=== PATIENT | male | born 1960 | race Caucasian/White ===

== ENCOUNTER 2017-11-10 09:56 | Emergency (ER) | payer OTHER, MEDICARE, MEDICAID ==
[~2017-11-10] VITALS: Ht 170.2 cm; Wt 81.8 kg
[~2017-11-10 09:56] MED LIST: ATIVAN1 MG PO; CARAFATE1 GM PO; DICYCLOMINE10 MG PO; EXALGO16 MG PO; GNP VIT D PO; OXYCODONE HCL30 MG PO; PREVNAR 13 IM; SUSTIVA600 MG PO; SYNTHROID88 MCG PO; TRAZODONE HCL100 MG PO; TRUVADA PO; WARFARIN SODIUM4 MG PO; ZOFRAN ODT4 MG PO; ZOLPIDEM10 M1 PO
[2017-11-10] MEDS ORDERED: XARELTO20 MG PO (10:30)
[2017-11-10 11:43] VITALS: BP 125/87
== END 2017-11-10 12:08 | disposition home or self-care (01) | DRG 563 ==
LOC: ED 09:56
DX: S39.012A Strain of muscle, fascia and tendon of lower back, initial encounter (principal); M19.90 Unspecified osteoarthritis, unspecified site; I10 Essential (primary) hypertension; F41.9 Anxiety disorder, unspecified; V43.52XA Car driver injured in collision with other type car in traffic accident, initial encounter

== ENCOUNTER 2017-12-09 08:26 | Emergency (ER) | payer MEDICARE, MEDICAID ==
[~2017-12-09] VITALS: Ht 172.7 cm; Wt 80.0 kg
[~2017-12-09 08:26] MED LIST changes: +OXYCOD-APAP1 TA1 PO; +XARELTO20 MG PO
[2017-12-09 08:56] LABS: HEMATOCRIT 39.4 % (39.0-50.0); IMMATURE GRANULOCYTES 0.5 % (0.0-5.0); MEAN CELL VOLUME 102.6 fL CALC (80.0-100.0); MEAN CORPUSCULAR HGB 34.1 pG CALC (26.0-32.0); MEAN CORPUSCULAR HGB CONC 33.2 g/L CALC (32.0-36.0); NEUT# 6.09 thou/uL (1.82-7.42); RED BLOOD COUNT 3.84 mill/uL (4.70-6.10); RED CELL DISTRI WIDTH 16.7 % (11.5-15.5)
[2017-12-09 08:59] LABS: HEMOGLOBIN 13.1 g/dl (14.0-18.0)
[2017-12-09 09:19] LABS: ANION GAP 14 (6-22 (CALC)); BUN 10 mg/dL (9-20); BUN/CREATININE RATIO 9 (12-20 (CALC)); CARBON DIOXIDE 24 mmol/l (22-30); CHLORIDE 103 mmol/l (95-108); CREATININE 1.1 mg/dL (0.7-1.3); GFR > 60 ML/MIN (>=60 (CALC)); GFR FOR AFR.AMER. > 60 ML/MIN (>=60 (CALC)); POTASSIUM 3.9 mmol/l (3.5-5.1); SODIUM 137 mmol/l (137-146)
[2017-12-09 12:38] VITALS: BP 125/77
== END 2017-12-09 12:46 | disposition home or self-care (01) ==
LOC: ED 08:26
PROVIDERS: Family Medicine
DX: R09.89 Other specified symptoms and signs involving the circulatory and respiratory systems (principal); M19.90 Unspecified osteoarthritis, unspecified site; I10 Essential (primary) hypertension; F41.9 Anxiety disorder, unspecified; G62.9 Polyneuropathy, unspecified; F17.200 Nicotine dependence, unspecified, uncomplicated; Z21 Asymptomatic human immunodeficiency virus [HIV] infection status; Z79.84 Long term (current) use of oral hypoglycemic drugs; Z86.718 Personal history of other venous thrombosis and embolism
CPT/HCPCS: J1610; Q9967

== ENCOUNTER 2018-01-20 14:37 | Inpatient (IN) | payer MEDICARE, MEDICAID ==
[~2018-01-20] VITALS: Ht 172.7 cm; Wt 77.0 kg
[~2018-01-20 14:37] MED LIST changes: +CLONAZEPAM1 MG PO; +CYMBALTA30 MG PO; +LEVOTHYROXIN50 MCG PO; +PROAIR HFA IN; +TIVICAY50 MG PO
[2018-01-24] VITALS (8 sets, daily range): BP systolic 102–146; BP diastolic 63–81
[2018-01-25 00:18] VITALS: BP 95/59
[2018-01-25 04:55] VITALS: BP 127/85
[2018-01-25 06:11] LABS: IMMATURE GRANULOCYTES 0.2 % (0.0-5.0); MEAN CELL VOLUME 105.6 fL CALC (80.0-100.0); MEAN CORPUSCULAR HGB 33.4 pG CALC (26.0-32.0); MEAN CORPUSCULAR HGB CONC 31.7 g/L CALC (32.0-36.0); NEUT# 5.62 thou/uL (1.82-7.42); RED BLOOD COUNT 3.02 mill/uL (4.70-6.10)
[2018-01-25 06:12] LABS: HEMATOCRIT 31.9 % (39.0-50.0); HEMOGLOBIN 10.1 g/dl (14.0-18.0)
[2018-01-25 06:33] LABS: BILIRUBIN, TOTAL 0.6 mg/dL (0.0-1.4); CREATININE 1.7 mg/dL (0.7-1.3); MAGNESIUM 1.6 mg/dL (1.6-2.3); POTASSIUM 4.4 mmol/l (3.5-5.1)
[2018-01-25 06:44] LABS: ALBUMIN 3.2 g/dL (3.2-5.0); TOTAL PROTEIN 5.7 g/dL (6.3-8.2)
[2018-01-25 08:15] VITALS: BP 128/80
[2018-01-25 11:56] VITALS: BP 136/67
[2018-01-25 15:30] VITALS: BP 143/80
[2018-01-25 20:00] VITALS: BP 143/88
[2018-01-26] VITALS (7 sets, daily range): BP systolic 133–162; BP diastolic 81–101
[2018-01-26 05:57] LABS: HEMOGLOBIN 9.7 g/dl (14.0-18.0); IMMATURE GRANULOCYTES 0.3 % (0.0-5.0); MEAN CELL VOLUME 103.4 fL CALC (80.0-100.0); MEAN CORPUSCULAR HGB 33.4 pG CALC (26.0-32.0); MEAN CORPUSCULAR HGB CONC 32.3 g/L CALC (32.0-36.0); NEUT# 6.08 thou/uL (1.82-7.42); RED BLOOD COUNT 2.9 mill/uL (4.70-6.10); RED CELL DISTRI WIDTH 17.8 % (11.5-15.5)
[2018-01-26 06:19] LABS: ALBUMIN 3.4 g/dL (3.2-5.0); ALKALINE PHOSPHATASE 114 u/l (38-126); ANION GAP 9 (6-22 (CALC)); BUN 14 mg/dL (9-20); BUN/CREATININE RATIO 11 (12-20 (CALC)); CARBON DIOXIDE 30 mmol/l (22-30); CHLORIDE 104 mmol/l (95-108); CREATININE 1.3 mg/dL (0.7-1.3); GFR 57 ML/MIN (>=60 (CALC)); GFR FOR AFR.AMER. > 60 ML/MIN (>=60 (CALC)); MAGNESIUM 1.6 mg/dL (1.6-2.3); POTASSIUM 4.7 mmol/l (3.5-5.1); SGOT/AST 21 u/l (17-59); SODIUM 139 mmol/l (137-146); TOTAL PROTEIN 6.1 g/dL (6.3-8.2)
[2018-01-27 00:15] VITALS: BP 148/80
[2018-01-27 05:31] VITALS: BP 124/81
[2018-01-27 06:04] LABS: ALBUMIN 2.9 g/dL (3.2-5.0); ALKALINE PHOSPHATASE 102 u/l (38-126); ANION GAP 6 (6-22 (CALC)); BILIRUBIN, TOTAL 0.8 mg/dL (0.0-1.4); BUN 12 mg/dL (9-20); BUN/CREATININE RATIO 10 (12-20 (CALC)); CARBON DIOXIDE 33 mmol/l (22-30); CHLORIDE 101 mmol/l (95-108); CREATININE 1.3 mg/dL (0.7-1.3); GFR 57 ML/MIN (>=60 (CALC)); GFR FOR AFR.AMER. > 60 ML/MIN (>=60 (CALC)); MAGNESIUM 1.8 mg/dL (1.6-2.3); POTASSIUM 4.5 mmol/l (3.5-5.1); SGOT/AST 16 u/l (17-59); SODIUM 136 mmol/l (137-146); TOTAL PROTEIN 5.5 g/dL (6.3-8.2)
[2018-01-27 06:06] LABS: HEMOGLOBIN 9.2 g/dl (14.0-18.0); IMMATURE GRANULOCYTES 0.5 % (0.0-5.0); MEAN CELL VOLUME 104.1 fL CALC (80.0-100.0); MEAN CORPUSCULAR HGB 34.2 pG CALC (26.0-32.0); MEAN CORPUSCULAR HGB CONC 32.9 g/L CALC (32.0-36.0); NEUT# 5.52 thou/uL (1.82-7.42); RED BLOOD COUNT 2.69 mill/uL (4.70-6.10); RED CELL DISTRI WIDTH 17.8 % (11.5-15.5)
[2018-01-27 08:20] VITALS: BP 129/79
[2018-01-27 11:15] VITALS: BP 103/65
[2018-01-27 15:35] VITALS: BP 108/76
[2018-01-27 20:00] VITALS: BP 89/60
[2018-01-28] VITALS: BP 114/63
[2018-01-28 04:00] VITALS: BP 110/64
[2018-01-28 05:08] LABS: HEMATOCRIT 24.6 % (39.0-50.0); IMMATURE GRANULOCYTES 0.5 % (0.0-5.0); MEAN CELL VOLUME 104.7 fL CALC (80.0-100.0); MEAN CORPUSCULAR HGB CONC 32.5 g/L CALC (32.0-36.0); NEUT# 5.24 thou/uL (1.82-7.42); RED BLOOD COUNT 2.35 mill/uL (4.70-6.10)
[2018-01-28 05:22] LABS: ALBUMIN 2.7 g/dL (3.2-5.0); ALKALINE PHOSPHATASE 86 u/l (38-126); ANION GAP 9 (6-22 (CALC)); BILIRUBIN, TOTAL 0.8 mg/dL (0.0-1.4); BUN 16 mg/dL (9-20); BUN/CREATININE RATIO 13 (12-20 (CALC)); CARBON DIOXIDE 31 mmol/l (22-30); CHLORIDE 100 mmol/l (95-108); CREATININE 1.2 mg/dL (0.7-1.3); GFR > 60 ML/MIN (>=60 (CALC)); GFR FOR AFR.AMER. > 60 ML/MIN (>=60 (CALC)); MAGNESIUM 1.7 mg/dL (1.6-2.3); POTASSIUM 3.8 mmol/l (3.5-5.1); SGOT/AST 15 u/l (17-59); SODIUM 136 mmol/l (137-146); TOTAL PROTEIN 5.2 g/dL (6.3-8.2)
[2018-01-28 08:31] VITALS: BP 111/69
[2018-01-28] MEDS ORDERED: KEFLEX500 MG PO (14:38)
[2018-01-28 15:57] VITALS: BP 112/71
== END 2018-01-28 17:30 | DRG 470 ==
LOC: MS2 01-24 07:22
PROVIDERS: ADMIT Orthopaedic Surgery; ATTEND Internal Medicine Nephrology
PROC: 0SRD0J9 Replacement of Left Knee Joint with Synthetic Substitute, Cemented, Open Approach (ICD-10-PCS; principal; 2018-01-24)
PROC: 3E0T3BZ Introduction of Anesthetic Agent into Peripheral Nerves and Plexi, Percutaneous Approach (ICD-10-PCS; 2018-01-24)
DX: M17.12 Unilateral primary osteoarthritis, left knee (principal); M23.52 Chronic instability of knee, left knee; I12.9 Hypertensive chronic kidney disease with stage 1 through stage 4 chronic kidney disease, or unspecified chronic kidney disease; N18.3 Chronic kidney disease, stage 3 (moderate); F17.210 Nicotine dependence, cigarettes, uncomplicated; F41.1 Generalized anxiety disorder; F32.9 Major depressive disorder, single episode, unspecified; J44.9 Chronic obstructive pulmonary disease, unspecified; G62.9 Polyneuropathy, unspecified; G47.00 Insomnia, unspecified; R23.8 Other skin changes; Z21 Asymptomatic human immunodeficiency virus [HIV] infection status; Z86.718 Personal history of other venous thrombosis and embolism; Z79.899 Other long term (current) drug therapy
CPT/HCPCS: J0131; J2710

== ENCOUNTER 2018-02-13 12:50 | Inpatient (IN) | payer MEDICARE, MEDICAID ==
[~2018-02-13] VITALS: Ht 172.7 cm; Wt 77.0 kg
[~2018-02-13 12:50] MED LIST changes: +KEFLEX500 MG PO
[2018-02-13] MEDS ORDERED: AMBIEN5 MG PO (13:32)
[2018-02-13] MEDS ORDERED: XARELTO10 MG PO (13:33)
[2018-02-13 13:53] LABS: HEMATOCRIT 36.6 % (39.0-50.0); HEMOGLOBIN 11.7 g/dl (14.0-18.0); IMMATURE GRANULOCYTES 0.9 % (0.0-5.0); MEAN CELL VOLUME 103.4 fL CALC (80.0-100.0); MEAN CORPUSCULAR HGB 33.1 pG CALC (26.0-32.0); NEUT# 4.71 thou/uL (1.82-7.42); RED BLOOD COUNT 3.54 mill/uL (4.70-6.10); RED CELL DISTRI WIDTH 17.7 % (11.5-15.5)
[2018-02-13 14:09] LABS: ANION GAP 18 (6-22 (CALC)); BILIRUBIN, TOTAL 1.2 mg/dL (0.0-1.4); BUN 11 mg/dL (9-20); BUN/CREATININE RATIO 8 (12-20 (CALC)); CARBON DIOXIDE 23 mmol/l (22-30); CHLORIDE 103 mmol/l (95-108); CREATININE 1.3 mg/dL (0.7-1.3); GFR 57 ML/MIN (>=60 (CALC)); GFR FOR AFR.AMER. > 60 ML/MIN (>=60 (CALC)); POTASSIUM 4.1 mmol/l (3.5-5.1); SODIUM 140 mmol/l (137-146)
[2018-02-13 14:12] LABS: ALBUMIN 4.3 g/dL (3.2-5.0); ALKALINE PHOSPHATASE 173 u/l (38-126); SGOT/AST 35 u/l (17-59); TOTAL PROTEIN 7.9 g/dL (6.3-8.2)
[2018-02-13 15:55] LABS: URINE BILIRUBIN - DIPSTICK NEGATIVE (NEGATIVE); URINE BLOOD DIPSTICK NEGATIVE (NEGATIVE); URINE COLOR YELLOW; URINE GLUCOSE - DIPSTICK NEGATIVE (NEGATIVE); URINE KETONE NEGATIVE (NEGATIVE); URINE LEUK ESTERASE NEGATIVE (NEGATIVE); URINE NITRITE - DIPSTICK NEGATIVE (Negative); URINE PH 5.5 (4.5-8.0); URINE PROTEIN - DIPSTICK TRACE mg/dL (NEG-TRACE); URINE UROBILINOGEN - DIPSTICK 0.2 E.U./dL (0.2)
[2018-02-13 18:43] VITALS: BP 131/70
[2018-02-13 20:00] VITALS: BP 95/60
[2018-02-14 04:50] VITALS: BP 107/67
[2018-02-14 04:53] LABS: HEMATOCRIT 31.5 % (39.0-50.0); HEMOGLOBIN 9.8 g/dl (14.0-18.0); IMMATURE GRANULOCYTES 0.2 % (0.0-5.0); MEAN CELL VOLUME 106.1 fL CALC (80.0-100.0); MEAN CORPUSCULAR HGB CONC 31.1 g/L CALC (32.0-36.0); NEUT# 2.47 thou/uL (1.82-7.42); RED BLOOD COUNT 2.97 mill/uL (4.70-6.10); RED CELL DISTRI WIDTH 17.8 % (11.5-15.5)
[2018-02-14 05:19] LABS: ALKALINE PHOSPHATASE 142 u/l (38-126); ANION GAP 12 (6-22 (CALC)); BILIRUBIN, TOTAL 0.6 mg/dL (0.0-1.4); BUN 12 mg/dL (9-20); BUN/CREATININE RATIO 10 (12-20 (CALC)); CARBON DIOXIDE 27 mmol/l (22-30); CHLORIDE 106 mmol/l (95-108); CREATININE 1.2 mg/dL (0.7-1.3); GFR > 60 ML/MIN (>=60 (CALC)); GFR FOR AFR.AMER. > 60 ML/MIN (>=60 (CALC)); MAGNESIUM 1.9 mg/dL (1.6-2.3); POTASSIUM 4.3 mmol/l (3.5-5.1); SGOT/AST 21 u/l (17-59); SODIUM 140 mmol/l (137-146)
[2018-02-14 05:23] LABS: ALBUMIN 3.2 g/dL (3.2-5.0); TOTAL PROTEIN 6.1 g/dL (6.3-8.2)
[2018-02-14 08:57] VITALS: BP 110/65
[2018-02-14 15:10] VITALS: BP 107/59
[2018-02-14 19:34] VITALS: BP 113/78
[2018-02-15 00:43] VITALS: BP 139/75
[2018-02-15 04:56] VITALS: BP 101/63
[2018-02-15 06:13] LABS: HEMATOCRIT 30.8 % (39.0-50.0); HEMOGLOBIN 9.5 g/dl (14.0-18.0); IMMATURE GRANULOCYTES 0.2 % (0.0-5.0); MEAN CELL VOLUME 106.9 fL CALC (80.0-100.0); MEAN CORPUSCULAR HGB CONC 30.8 g/L CALC (32.0-36.0); NEUT# 2.54 thou/uL (1.82-7.42); RED BLOOD COUNT 2.88 mill/uL (4.70-6.10); RED CELL DISTRI WIDTH 17.6 % (11.5-15.5)
[2018-02-15 06:32] LABS: ALKALINE PHOSPHATASE 121 u/l (38-126); ANION GAP 11 (6-22 (CALC)); BILIRUBIN, TOTAL 0.4 mg/dL (0.0-1.4); BUN 14 mg/dL (9-20); BUN/CREATININE RATIO 12 (12-20 (CALC)); CARBON DIOXIDE 27 mmol/l (22-30); CHLORIDE 106 mmol/l (95-108); CREATININE 1.1 mg/dL (0.7-1.3); GFR > 60 ML/MIN (>=60 (CALC)); GFR FOR AFR.AMER. > 60 ML/MIN (>=60 (CALC)); MAGNESIUM 1.9 mg/dL (1.6-2.3); POTASSIUM 4.3 mmol/l (3.5-5.1); SGOT/AST 19 u/l (17-59); SODIUM 140 mmol/l (137-146); TOTAL PROTEIN 5.8 g/dL (6.3-8.2)
[2018-02-15 08:44] VITALS: BP 100/61
[2018-02-15 15:31] VITALS: BP 103/64
[2018-02-15 18:51] VITALS: BP 126/71
[2018-02-16 03:54] VITALS: BP 107/64
[2018-02-16 08:44] VITALS: BP 112/68
[2018-02-16 16:01] VITALS: BP 118/79
[2018-02-16 19:29] VITALS: BP 109/68
[2018-02-17 04:30] VITALS: BP 103/71
[2018-02-17 08:00] VITALS: BP 119/85
[2018-02-17 11:10] VITALS: BP 124/75
[2018-02-17 16:30] VITALS: BP 109/71
[2018-02-17 19:50] VITALS: BP 110/60
[2018-02-18 04:30] VITALS: BP 110/59
[2018-02-18 06:48] LABS: HEMOGLOBIN 9.4 g/dl (14.0-18.0); MEAN CELL VOLUME 105.3 fL CALC (80.0-100.0); MEAN CORPUSCULAR HGB CONC 31.3 g/L CALC (32.0-36.0); NEUT# 1.91 thou/uL (1.82-7.42); RED BLOOD COUNT 2.85 mill/uL (4.70-6.10); RED CELL DISTRI WIDTH 17.2 % (11.5-15.5)
[2018-02-18 07:05] LABS: ALKALINE PHOSPHATASE 112 u/l (38-126); ANION GAP 10 (6-22 (CALC)); BILIRUBIN, TOTAL 0.3 mg/dL (0.0-1.4); BUN 16 mg/dL (9-20); BUN/CREATININE RATIO 13 (12-20 (CALC)); CARBON DIOXIDE 27 mmol/l (22-30); CHLORIDE 108 mmol/l (95-108); CREATININE 1.2 mg/dL (0.7-1.3); GFR > 60 ML/MIN (>=60 (CALC)); GFR FOR AFR.AMER. > 60 ML/MIN (>=60 (CALC)); MAGNESIUM 1.7 mg/dL (1.6-2.3); POTASSIUM 4.4 mmol/l (3.5-5.1); SGOT/AST 18 u/l (17-59); SODIUM 141 mmol/l (137-146); TOTAL PROTEIN 5.8 g/dL (6.3-8.2)
[2018-02-18 16:20] VITALS: BP 107/63
== END 2018-02-18 19:00 | disposition short-term general hospital (02) | DRG 560 ==
LOC: ED 12:50 → ED-I 17:28 → ED 17:56 → MS2 17:57
PROVIDERS: ADMIT Internal Medicine Nephrology; ATTEND Internal Medicine Nephrology
DX: T84.54XA Infection and inflammatory reaction due to internal left knee prosthesis, initial encounter (principal); T81.41XA Infection following a procedure, superficial incisional surgical site, initial encounter; L03.116 Cellulitis of left lower limb; I10 Essential (primary) hypertension; G62.9 Polyneuropathy, unspecified; J44.9 Chronic obstructive pulmonary disease, unspecified; F41.1 Generalized anxiety disorder; F32.9 Major depressive disorder, single episode, unspecified; E03.9 Hypothyroidism, unspecified; G89.29 Other chronic pain; F17.210 Nicotine dependence, cigarettes, uncomplicated; K59.00 Constipation, unspecified; Y83.1 Surgical operation with implant of artificial internal device as the cause of abnormal reaction of the patient, or of later complication, without mention of misadventure at the time of the procedure; Z21 Asymptomatic human immunodeficiency virus [HIV] infection status; Z86.718 Personal history of other venous thrombosis and embolism; Z79.01 Long term (current) use of anticoagulants; Z79.899 Other long term (current) drug therapy; Z79.891 Long term (current) use of opiate analgesic
CPT/HCPCS: J3370; Q9967

== ENCOUNTER 2018-03-24 11:36 | Emergency (ER) | payer MEDICARE, MEDICAID ==
[~2018-03-24] VITALS: Ht 172.7 cm; Wt 77.3 kg
[~2018-03-24 11:36] MED LIST changes: +AMBIEN5 MG PO; +XARELTO10 MG PO
[2018-03-24 12:43] LABS: HEMATOCRIT 35.8 % (39.0-50.0); HEMOGLOBIN 11.4 g/dl (14.0-18.0); IMMATURE GRANULOCYTES 0.3 % (0.0-5.0); MEAN CELL VOLUME 99.4 fL CALC (80.0-100.0); MEAN CORPUSCULAR HGB 31.7 pG CALC (26.0-32.0); MEAN CORPUSCULAR HGB CONC 31.8 g/L CALC (32.0-36.0); NEUT# 4.49 thou/uL (1.82-7.42); RED BLOOD COUNT 3.6 mill/uL (4.70-6.10); RED CELL DISTRI WIDTH 16.4 % (11.5-15.5)
[2018-03-24 12:53] LABS: ALBUMIN 4.2 g/dL (3.2-5.0); BILIRUBIN, TOTAL 0.5 mg/dL (0.0-1.4); CREATININE 1.7 mg/dL (0.7-1.3); POTASSIUM 3.7 mmol/l (3.5-5.1); TOTAL PROTEIN 7.5 g/dL (6.3-8.2)
[2018-03-24] MEDS ORDERED: CLEOCIN300 MG PO (13:50)
[2018-03-24] MEDS ORDERED: ULTRAM50 M1 PO (13:50)
[2018-03-24 13:59] VITALS: BP 130/86
== END 2018-03-24 14:37 | disposition home or self-care (01) ==
LOC: ED 11:36
PROVIDERS: Emergency Medicine
DX: G89.18 Other acute postprocedural pain (principal); M25.462 Effusion, left knee; Z96.652 Presence of left artificial knee joint

== ENCOUNTER 2018-04-11 12:31 | Inpatient (IN) | payer MEDICARE, MEDICAID ==
[~2018-04-11] VITALS: Ht 172.7 cm; Wt 74.0 kg
[~2018-04-11 12:31] MED LIST changes: +CLEOCIN300 MG PO; +ULTRAM50 M1 PO
--- NOTE | 2018-04-11 12:54 | NUR ---
PT TO ROOM FOR EXAM
[2018-04-11 13:48] LABS: HEMATOCRIT 37.8 % (39.0-50.0); HEMOGLOBIN 12.1 g/dl (14.0-18.0); IMMATURE GRANULOCYTES 0.2 % (0.0-5.0); MEAN CELL VOLUME 95.7 fL CALC (80.0-100.0); MEAN CORPUSCULAR HGB 30.6 pG CALC (26.0-32.0); NEUT# 1.48 thou/uL (1.82-7.42); RED BLOOD COUNT 3.95 mill/uL (4.70-6.10); RED CELL DISTRI WIDTH 17.4 % (11.5-15.5)
[2018-04-11 14:02] LABS: BARBITURATES NEGATIVE (NEGATIVE); COCAINE NEGATIVE (NEGATIVE); METHADONE NEGATIVE (NEGATIVE); OXCYCODONE NEGATIVE (NEGATIVE); TETRAHYDROCANNABIONOL NEGATIVE (NEGATIVE); TRICYLIC ANTIDEPRESSANTS NEGATIVE (NEGATIVE)
[2018-04-11 14:06] LABS: ANION GAP 19 (6-22 (CALC)); BUN 7 mg/dL (9-20); BUN/CREATININE RATIO 6 (12-20 (CALC)); CARBON DIOXIDE 20 mmol/l (22-30); CHLORIDE 94 mmol/l (95-108); CREATININE 1.1 mg/dL (0.7-1.3); GFR > 60 ML/MIN (>=60 (CALC)); GFR FOR AFR.AMER. > 60 ML/MIN (>=60 (CALC)); POTASSIUM 4.4 mmol/l (3.5-5.1); SODIUM 129 mmol/l (137-146)
[2018-04-11 14:07] LABS: ETHYL ALCOHOL 124 mg/dl (0-30)
--- NOTE | 2018-04-11 14:15 | NUR ---
PT RESTING ON STRETCHER. C/O CHRONIC LEFT KNEE PAIN SEEN BY PAIN MGMT. ADVISED OF CURRENT POC.
--- NOTE | 2018-04-11 15:30 | NUR ---
PT REQUESTING PAIN MEDICATION. ADVISED THAT HE JUST RECEIVED LORTAB MINUTES AGO.... IT HAS NOT HAD TIME TO HAVE ANY EFFECT
--- NOTE | 2018-04-11 15:30 | NUR ---
SITTING WITH PATIENT AT THIS TIME TO PROVIDE SAFETY
--- NOTE | 2018-04-11 16:30 | NUR ---
PT REPOSITIONS SELF. MAEW. PT REDIRECTED BY STAFF. REMINDED OF RECENT MEDS FOR PAIN.
--- NOTE | 2018-04-11 17:14 | NUR ---
IV SITE TO LAC. BANANA BAG INFUSING. PT TO BE ADMITTED TO ICU FOR ABNORMAL SODIUM LEVEL. EXPLAINED TO PT.
--- NOTE | 2018-04-11 17:20 | NUR ---
RECVD REPORT FROM DINAH LAZCANO HAS NOT ARRIVED YET.
--- NOTE | 2018-04-11 17:26 | NUR ---
REPORT CALLED TO DINAH GARCIA, ICU. PT TO ICU VIA STRETCHER ACCOMPANIED BY STAFF. IV SITE HEALTHY.
--- NOTE | 2018-04-11 17:38 | NUR ---
PT ARRIVED TO ICU 1 FROM ER BY STRETCHER IN STABLE CONDITION. PT MOVED SELF OVER TO NEW BED.
[2018-04-11 17:45] VITALS: BP 120/75
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
--- NOTE | 2018-04-11 18:01 | NUR ---
PT SITTING UP IN BED, EATING DINNER. PT STATES HES NOT THAT HUNGRY, HE JUST WANTS THE PAIN TO GO AWAY.
--- NOTE | 2018-04-11 18:44 | NUR ---
PT EDUCATED ON MEDICATIONS AVAILABLE. PT REQUESTING SOMETHING FOR PAIN & SOMETHING TO HELP HIM SLEEP.
--- NOTE | 2018-04-11 18:50 | NUR ---
REPORT FROM Raj SAWANT RN. ASSUMED PT. CARE.
[2018-04-11 19:00] VITALS: BP 100/67
--- NOTE | 2018-04-11 19:30 | NUR ---
PT. FOUND AWAKE, ALERT, ORIENTED X 3. SKIN WARM AND DRY. RESPS EVEN AND UNLABORED. AFEBRILE. CALL LIGHT WITHIN REACH. BOWEL SOUNDS ACTIVE. DISTIL PULSES INTACT. LUNGS CTA. HR STABLE 57. BP SLIGHTLY LOW. WILL CONTINUE TO ASSESS. BANANA BAG INFUSING ORDERED AT THIS TIME. LT. KNEE APPEARS WITH REDNESS, SWELLING, WARMTH COMPARED TO RIGHT KNEE.
--- NOTE | 2018-04-11 19:45 | NUR ---
DR. VILLAR UPDATED ON PATIENT C/O PAIN AND REQUEST FOR SLEEPING MED FOR TONIGHT. NEW ORDERS RECEIVED. REMAINS STABLE WITH SLIGHTLY LOW BP. WILL CONTINUE TO ASSESS FOR IMPROVEMENTS.
[2018-04-11 20:00] VITALS: BP 90/57
[2018-04-11 21:00] VITALS: BP 93/57
--- NOTE | 2018-04-11 21:21 | NUR ---
PT. STATES THE ICE PROVIDED FOR KNEE PAIN DID NOTHING FOR HIS DISCOMFORT. MEDICATED PER PHYSICIAN ORDERS. UPDATED ON HS PLAN OF CARE AND MED ADMINISTRATION. PT. VERBALIZES UNDERSTANDING OF PLAN OF CARE. JULEE DEL TORO REMAINS AT BEDSIDE.
[2018-04-11 22:00] VITALS: BP 76/54
--- NOTE | 2018-04-11 22:17 | NUR ---
PT. BP REMAINS LOW. IV FLUID BOLUS INITIATED PER PHYSICIAN ORDERS. WILL CONTINUE TO ASSESS.
--- NOTE | 2018-04-11 23:27 | NUR ---
PT. COMPLAINTS OF CONTINUED KNEE PAIN WITHOUT CHANGE FROM ICE, OR FENTANYL PATCH. ASKING FOR MORE PAIN MEDS. EDUCATED THAT THE PAIN MEDS ORDERED BY THE PHYSCIAN WAS WHAT HE WOULD CURRENTLY BE RECEIVING FOR HIS PAIN. UPDATED THAT AT MIDNIGHT HE COULD HAVE THE LIBRIUM AND ATIVAN AGAIN.
[2018-04-12] VITALS (8 sets, daily range): BP systolic 84–146; BP diastolic 50–73
--- NOTE | 2018-04-12 00:27 | NUR ---
PT. MEDICATED PER PHYSICIAN ORDERS AND PT. REQUEST. SITTER REMAINS AT BEDSIDE. PT. STATES HE NORMALLY HAS A LOW BP AND HR. HR REMAINS SINUS IN THE 40'S AND BP IS SYSTOLIC IN THE 80'S. NO DISTRESS NOTED. SLEEPING RESPIRATIONS AT THIS TIME. WILL CONTINUE TO ASSESS.
--- NOTE | 2018-04-12 02:05 | NUR ---
SITTER REMAINS AT BEDSIDE. PT. RESTING WITH EYES CLOSED. RESPS EVEN AND UNLABORED. BP REMAINS LOW, BUT STABLE. IV FLUIDS CONTINUE TO INFUSE. NO DISTRESS NOTED.
--- NOTE | 2018-04-12 03:30 | NUR ---
PT. REMAINS AWAKE, ALERT AND ASKING FOR PAIN MEDICATION. PT. INFORMED THAT NO OTHER PAIN MEDICATION WOULD BE ORDERED TONIGHT OTHER THAN THE FENTANYL PATCH. STATES UNDERSTANDING BUT ASKING IF THE PHYSICIAN COULD BE CALLED FOR MORE PAIN MEDS. PT. MADE AWARE THAT PHYSICIAN INFORMED THIS RN THAT NO OTHER PAIN MEDS WOULD BE ADDED THE FENTANYL IS A CONTINUOUS RELEASE IN THE PATCH FORM.
--- NOTE | 2018-04-12 05:42 | NUR ---
PT. REMAINS EASILY AROUSABLE TO LIGHT VERBAL STIMULI. IV FLUIDS CONTINUE TO INFUSE ORDERED. SITTER REMAINS AT BEDSIDE. LAB AT BEDSIDE AT THIS TIME TO DRAW PT. REMAINS IN NO DISTRESS OTHER THAN REPORTED SEVERE LT. KNEE PAIN. REMAINS HYPOTENSIVE AND BRADYCARDIC, BUT STABLE.
[2018-04-12 06:04] LABS: HEMATOCRIT 35.4 % (39.0-50.0); HEMOGLOBIN 11.7 g/dl (14.0-18.0); IMMATURE GRANULOCYTES 0.8 % (0.0-5.0); MEAN CELL VOLUME 94.1 fL CALC (80.0-100.0); MEAN CORPUSCULAR HGB 31.1 pG CALC (26.0-32.0); MEAN CORPUSCULAR HGB CONC 33.1 g/L CALC (32.0-36.0); NEUT# 1.97 thou/uL (1.82-7.42); RED BLOOD COUNT 3.76 mill/uL (4.70-6.10); RED CELL DISTRI WIDTH 17.2 % (11.5-15.5)
[2018-04-12 06:25] LABS: ALKALINE PHOSPHATASE 119 u/l (38-126); AMYLASE 82 u/l (30-110); BILIRUBIN, TOTAL 0.5 mg/dL (0.0-1.4); BUN 9 mg/dL (9-20); BUN/CREATININE RATIO 8 (12-20 (CALC)); CARBON DIOXIDE 23 mmol/l (22-30); CREATININE 1.2 mg/dL (0.7-1.3); GFR > 60 ML/MIN (>=60 (CALC)); GFR FOR AFR.AMER. > 60 ML/MIN (>=60 (CALC)); LIPASE 372 u/l (23-300); MAGNESIUM 1.9 mg/dL (1.6-2.3); POTASSIUM 4.4 mmol/l (3.5-5.1); SGOT/AST 12 u/l (17-59); SODIUM 135 mmol/l (137-146)
[2018-04-12 06:27] LABS: ANION GAP 10 (6-22 (CALC)); CHLORIDE 106 mmol/l (95-108); TOTAL PROTEIN 5.6 g/dL (6.3-8.2)
--- NOTE | 2018-04-12 06:50 | NUR ---
REPORT RECVD FROM DINAH CHAKRABORTY AT START OF SHIFT.
--- NOTE | 2018-04-12 07:54 | NUR ---
PT APPEARS TO BE SLEEPING, ROLLED OVER ON HIS RIGHT SIDE. PT QUIET, APPEARS RELAXED. SITTER @BEDSIDE D/T OGDEN ACT. BREAKFAST HELD UNTIL PT WAKES UP.
--- NOTE | 2018-04-12 07:59 | NUR ---
PT HAD A MODERATE SIZED LOOSE BROWN BM IN BED. PARTIAL LINEN CHANGE, PT CLEANED SELF UP.
--- NOTE | 2018-04-12 08:04 | NUR ---
PNEUMONIA VACCINE ASSESSMENT PT REPORTS PREVIOUS PNEUMONIA VACCINE AND WILL NOT NEED ANOTHER PNEUMONIA VACCINE UNTIL HE TURNS 63 ACCORDING TO CURRENT CDC RECOMMENDATIONS
--- NOTE | 2018-04-12 08:11 | NUR ---
PT SITTING UP IN BED, EATING BREAKFAST.
--- NOTE | 2018-04-12 09:30 | NUR ---
PT MEDICALLY CLEARED AT 0929 THIS AM. WILL CONTACT CASE MANAGEMENT.
--- NOTE | 2018-04-12 09:36 | NUR ---
ARABELLA, CASE MANAGEMENT, NOTIFIED THAT PT IS MEDICALLY CLEARED.
--- NOTE | 2018-04-12 09:43 | NUR ---
PT AWARE OF MEDICAL CLEARANCE. ASKED TO USE THE PHONE TO CALL HIS FATHER TO BRING UP A DIE TURNER FOR HIS CELLPHONE. BUT AFTER DIALING THE PHONE FOR FATHER, PT STATED TALKING TO DAD ABOUT "HE DOESNT BELONG HERE", STATES HE "NEEDS TO FOLLOW UP WITH PAIN MANAGEMENT" AND C/O TAXES & MONEY TO DAD. PT REQUEST DR FERNANDO COME BY TO EVALUATE HIS KNEE. DR MARTINEZ MADE AWARE, HE STATED KASSIE NOT IN HOSPITAL TODAY. PT CAN FOLLOW UP WITH PAIN MANAGEMENT & ORTHO UPON DC FROM FACILITY.
--- NOTE | 2018-04-12 10:33 | NUR ---
PT MOANING IN ROOM SINCE DR MARTINEZ ON UNIT. PT AGAIN REQUESTS MORE PAIN MEDICINE AND "SOMETHING TO TAKE THE EDGE OFF". PT REMINDED HE HAS ATIVAN & LIBRIUM DUE AT NOON.
--- NOTE | 2018-04-12 12:18 | NUR ---
PT SITTING UP IN BED, EATING LUNCH.
--- NOTE | 2018-04-12 12:32 | NUR ---
SPOKE WITH ESHA, FROM [facility], TO GIVE SBAR ON PT. @[phone] SHE WILL CALL BACK WITH DECISION.
--- NOTE | 2018-04-12 14:46 | NUR ---
PT APPEARS TO BE SLEEPING IN BED. NO S/S OF DISTRESS. VSS. SITTER @BEDSIDE.
--- NOTE | 2018-04-12 15:40 | NUR ---
[facility] OFFICE ON THEIR WAY FOR TRANSPORTATION TO FACILITY.
--- NOTE | 2018-04-12 15:48 | NUR ---
IV DC'D, TIP INTACT, PRESSURE DRESSING APPLIED. FENTANYL PATCH REMOVED. PT ASK THAT WE CONTACT HIS DAD @ [phone], ASK FOR CAROLINE TRIPP
--- NOTE | 2018-04-12 15:52 | NUR ---
LUCY, CASE MANAGEMENT, @BEDSIDE DISCUSSING TRANSFER WITH PT. PT DC FROM MONITORS. ALLOWED TO CHANGE INTO SHORT, SHIRT, SHOES. ALL PERSONAL ITEMS INCLUDING MEDICATIONS LEFT IN BAG AT NURSES DESK.
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
--- NOTE | 2018-04-12 16:02 | NUR ---
PT OUT THE DOOR BY WC WITH WALKER & LENORA & [facility] IN STABLE CONDITION.
== END 2018-04-12 16:02 | DRG 641 ==
LOC: ED 12:31 → ED-I 13:28 → ED 16:08 → ICU 16:09
PROVIDERS: Family Medicine; ADMIT Internal Medicine Nephrology; ATTEND Internal Medicine Nephrology
DX: E87.1 Hypo-osmolality and hyponatremia (principal); R45.851 Suicidal ideations; I10 Essential (primary) hypertension; G62.9 Polyneuropathy, unspecified; J44.9 Chronic obstructive pulmonary disease, unspecified; F41.1 Generalized anxiety disorder; F32.9 Major depressive disorder, single episode, unspecified; F10.129 Alcohol abuse with intoxication, unspecified; F17.200 Nicotine dependence, unspecified, uncomplicated; Y90.6 Blood alcohol level of 120-199 mg/100 ml; Z21 Asymptomatic human immunodeficiency virus [HIV] infection status; Z96.652 Presence of left artificial knee joint; Z79.899 Other long term (current) drug therapy; Z86.718 Personal history of other venous thrombosis and embolism
CPT/HCPCS: J2060

== ENCOUNTER 2018-04-25 22:43 | Inpatient (IN) | payer MEDICARE ==
[~2018-04-25] VITALS: Ht 172.7 cm; Wt 75.8 kg
[2018-04-26] LABS: URINE BILIRUBIN - DIPSTICK NEGATIVE (NEGATIVE); URINE BLOOD DIPSTICK TRACE-LYSED (NEGATIVE); URINE COLOR YELLOW; URINE GLUCOSE - DIPSTICK NEGATIVE (NEGATIVE); URINE KETONE NEGATIVE (NEGATIVE); URINE LEUK ESTERASE NEGATIVE (NEGATIVE); URINE NITRITE - DIPSTICK NEGATIVE (Negative); URINE PH 5.5 (4.5-8.0); URINE PROTEIN - DIPSTICK NEGATIVE (NEG-TRACE); URINE SPECIFIC GRAVITY <=1.005; URINE UROBILINOGEN - DIPSTICK 0.2 E.U./dL (0.2)
[2018-04-26 00:01] LABS: HEMATOCRIT 45.7 % (39.0-50.0); HEMOGLOBIN 14.7 g/dl (14.0-18.0); IMMATURE GRANULOCYTES 0.1 % (0.0-5.0); MEAN CELL VOLUME 95.2 fL CALC (80.0-100.0); MEAN CORPUSCULAR HGB 30.6 pG CALC (26.0-32.0); MEAN CORPUSCULAR HGB CONC 32.2 g/L CALC (32.0-36.0); NEUT# 3.32 thou/uL (1.82-7.42); RED BLOOD COUNT 4.8 mill/uL (4.70-6.10); RED CELL DISTRI WIDTH 17.4 % (11.5-15.5)
[2018-04-26 00:18] LABS: BILIRUBIN, TOTAL 0.4 mg/dL (0.0-1.4)
[2018-04-26 00:21] LABS: ALBUMIN 5.2 g/dL (3.2-5.0); TOTAL PROTEIN 9.1 g/dL (6.3-8.2)
[2018-04-26 04:35] VITALS: BP 133/79
[2018-04-26 07:51] VITALS: BP 116/71
[2018-04-26 13:36] VITALS: BP 105/69
[2018-04-26 13:38] LABS: IMMATURE GRANULOCYTES 0.2 % (0.0-5.0); MEAN CELL VOLUME 96.8 fL CALC (80.0-100.0); NEUT# 2.53 thou/uL (1.82-7.42); RED BLOOD COUNT 3.73 mill/uL (4.70-6.10); RED CELL DISTRI WIDTH 17.4 % (11.5-15.5)
[2018-04-26 13:41] LABS: HEMATOCRIT 36.1 % (39.0-50.0); HEMOGLOBIN 11.2 g/dl (14.0-18.0)
[2018-04-26 13:52] LABS: CREATININE 2.8 mg/dL (0.7-1.3); POTASSIUM 3.8 mmol/l (3.5-5.1)
[2018-04-26 19:13] VITALS: BP 128/82
[2018-04-26 21:04] VITALS: BP 90/87
[2018-04-26 23:05] VITALS: BP 84/52
[2018-04-27] VITALS (7 sets, daily range): BP systolic 85–126; BP diastolic 52–69
[2018-04-27 05:02] LABS: HEMATOCRIT 33.2 % (39.0-50.0); HEMOGLOBIN 10.4 g/dl (14.0-18.0); IMMATURE GRANULOCYTES 0.2 % (0.0-5.0); MEAN CELL VOLUME 97.4 fL CALC (80.0-100.0); MEAN CORPUSCULAR HGB 30.5 pG CALC (26.0-32.0); MEAN CORPUSCULAR HGB CONC 31.3 g/L CALC (32.0-36.0); NEUT# 2.28 thou/uL (1.82-7.42); RED BLOOD COUNT 3.41 mill/uL (4.70-6.10); RED CELL DISTRI WIDTH 17.8 % (11.5-15.5)
[2018-04-27 05:47] LABS: ALKALINE PHOSPHATASE 103 u/l (38-126); AMYLASE < 30 u/l (30-110); ANION GAP 11 (6-22 (CALC)); BILIRUBIN, TOTAL 0.4 mg/dL (0.0-1.4); BUN 18 mg/dL (9-20); BUN/CREATININE RATIO 7 (12-20 (CALC)); CARBON DIOXIDE 23 mmol/l (22-30); CHLORIDE 110 mmol/l (95-108); CREATININE 2.6 mg/dL (0.7-1.3); GFR 25 ML/MIN (>=60 (CALC)); GFR FOR AFR.AMER. 31 ML/MIN (>=60 (CALC)); LIPASE 32 u/l (23-300); MAGNESIUM 1.9 mg/dL (1.6-2.3); POTASSIUM 3.8 mmol/l (3.5-5.1); SGOT/AST 16 u/l (17-59); SODIUM 140 mmol/l (137-146)
[2018-04-27 05:48] LABS: TOTAL PROTEIN 5.5 g/dL (6.3-8.2)
[2018-04-28] VITALS (7 sets, daily range): BP systolic 123–154; BP diastolic 71–88
[2018-04-28 05:16] LABS: HEMATOCRIT 28.9 % (39.0-50.0); HEMOGLOBIN 9.1 g/dl (14.0-18.0); IMMATURE GRANULOCYTES 0.2 % (0.0-5.0); MEAN CELL VOLUME 95.1 fL CALC (80.0-100.0); MEAN CORPUSCULAR HGB 29.9 pG CALC (26.0-32.0); MEAN CORPUSCULAR HGB CONC 31.5 g/L CALC (32.0-36.0); RED BLOOD COUNT 3.04 mill/uL (4.70-6.10); RED CELL DISTRI WIDTH 17.3 % (11.5-15.5)
[2018-04-28 05:32] LABS: ALBUMIN 2.8 g/dL (3.2-5.0); BILIRUBIN, TOTAL 0.6 mg/dL (0.0-1.4); MAGNESIUM 1.8 mg/dL (1.6-2.3); POTASSIUM 4.4 mmol/l (3.5-5.1); TOTAL PROTEIN 5.4 g/dL (6.3-8.2)
[2018-04-29] VITALS (7 sets, daily range): BP systolic 125–145; BP diastolic 70–86
[2018-04-29 05:45] LABS: HEMATOCRIT 27.9 % (39.0-50.0); HEMOGLOBIN 8.8 g/dl (14.0-18.0); IMMATURE GRANULOCYTES 0.3 % (0.0-5.0); MEAN CELL VOLUME 95.5 fL CALC (80.0-100.0); MEAN CORPUSCULAR HGB 30.1 pG CALC (26.0-32.0); MEAN CORPUSCULAR HGB CONC 31.5 g/L CALC (32.0-36.0); NEUT# 3.42 thou/uL (1.82-7.42); RED BLOOD COUNT 2.92 mill/uL (4.70-6.10); RED CELL DISTRI WIDTH 17.7 % (11.5-15.5)
[2018-04-29 06:44] LABS: ALBUMIN 2.7 g/dL (3.2-5.0); BILIRUBIN, TOTAL 0.2 mg/dL (0.0-1.4); CREATININE 1.8 mg/dL (0.7-1.3); MAGNESIUM 1.6 mg/dL (1.6-2.3); TOTAL PROTEIN 5.1 g/dL (6.3-8.2)
[2018-04-30 04:20] VITALS: BP 140/81
[2018-04-30 05:34] LABS: HEMATOCRIT 31.2 % (39.0-50.0); HEMOGLOBIN 9.8 g/dl (14.0-18.0); IMMATURE GRANULOCYTES 0.3 % (0.0-5.0); MEAN CELL VOLUME 95.1 fL CALC (80.0-100.0); MEAN CORPUSCULAR HGB 29.9 pG CALC (26.0-32.0); MEAN CORPUSCULAR HGB CONC 31.4 g/L CALC (32.0-36.0); NEUT# 2.97 thou/uL (1.82-7.42); RED BLOOD COUNT 3.28 mill/uL (4.70-6.10); RED CELL DISTRI WIDTH 17.5 % (11.5-15.5)
[2018-04-30 06:03] LABS: ALBUMIN 3.1 g/dL (3.2-5.0); CREATININE 1.6 mg/dL (0.7-1.3)
[2018-04-30 08:38] VITALS: BP 115/75
[2018-04-30 13:17] VITALS: BP 106/61
[2018-04-30] MEDS ORDERED: ZOLPIDEM10 M1 PO (14:51)
[2018-04-30] MEDS ORDERED: OXYCODONE HCL30 MG PO (14:52)
== END 2018-04-30 16:10 | disposition home or self-care (01) | DRG 660 ==
LOC: ED 22:43 → ED-I 04-26 03:03 → ED 04-26 03:35 → MS2 04-26 03:36
PROVIDERS: Emergency Medicine; Internal Medicine Nephrology; ADMIT Internal Medicine; ATTEND Internal Medicine Nephrology
PROC: 0T768DZ Dilation of Right Ureter with Intraluminal Device, Via Natural or Artificial Opening Endoscopic (ICD-10-PCS; principal; 2018-04-26)
PROC: BT1D1ZZ Fluoroscopy of Right Kidney, Ureter and Bladder using Low Osmolar Contrast (ICD-10-PCS; 2018-04-26)
DX: N13.30 Unspecified hydronephrosis (principal); D62 Acute posthemorrhagic anemia; N17.9 Acute kidney failure, unspecified; I12.9 Hypertensive chronic kidney disease with stage 1 through stage 4 chronic kidney disease, or unspecified chronic kidney disease; N18.3 Chronic kidney disease, stage 3 (moderate); G62.9 Polyneuropathy, unspecified; J44.9 Chronic obstructive pulmonary disease, unspecified; R31.0 Gross hematuria; F10.10 Alcohol abuse, uncomplicated; E86.9 Volume depletion, unspecified; D64.9 Anemia, unspecified; G89.29 Other chronic pain; E83.39 Other disorders of phosphorus metabolism; F17.210 Nicotine dependence, cigarettes, uncomplicated; Z21 Asymptomatic human immunodeficiency virus [HIV] infection status; Z86.718 Personal history of other venous thrombosis and embolism; Z79.899 Other long term (current) drug therapy; Z96.652 Presence of left artificial knee joint
CPT/HCPCS: C1769; J0131; Q9967

== ENCOUNTER 2018-05-07 22:36 | Emergency (ER) | payer MEDICARE ==
[~2018-05-07] VITALS: Ht 172.7 cm; Wt 75.9 kg
[2018-05-07 23:54] LABS: HEMATOCRIT 31.5 % (39.0-50.0); HEMOGLOBIN 9.8 g/dl (14.0-18.0); IMMATURE GRANULOCYTES 0.2 % (0.0-5.0); MEAN CELL VOLUME 96.3 fL CALC (80.0-100.0); MEAN CORPUSCULAR HGB CONC 31.1 g/L CALC (32.0-36.0); NEUT# 2.44 thou/uL (1.82-7.42); RED BLOOD COUNT 3.27 mill/uL (4.70-6.10); RED CELL DISTRI WIDTH 17.8 % (11.5-15.5)
[2018-05-07 23:54] LABS: URINE BILIRUBIN - DIPSTICK NEGATIVE (NEGATIVE); URINE BLOOD DIPSTICK LARGE (NEGATIVE); URINE COLOR YELLOW; URINE GLUCOSE - DIPSTICK NEGATIVE (NEGATIVE); URINE KETONE NEGATIVE (NEGATIVE); URINE NITRITE - DIPSTICK NEGATIVE (Negative); URINE PROTEIN - DIPSTICK NEGATIVE (NEG-TRACE); URINE SPECIFIC GRAVITY <=1.005; URINE UROBILINOGEN - DIPSTICK 0.2 E.U./dL (0.2)
[2018-05-07 23:56] LABS: URINE LEUK ESTERASE SMALL (NEGATIVE)
[2018-05-08 00:01] LABS: BARBITURATES NEGATIVE (NEGATIVE); COCAINE NEGATIVE (NEGATIVE); METHADONE NEGATIVE (NEGATIVE); OXCYCODONE POSITIVE (NEGATIVE); TETRAHYDROCANNABIONOL NEGATIVE (NEGATIVE); TRICYLIC ANTIDEPRESSANTS NEGATIVE (NEGATIVE); URINE BACTERIA FEW hpf; URINE SQUAMOUS EPITHELIAL CELL FEW EPI/hpf (0-FEW)
[2018-05-08 00:11] LABS: ALBUMIN 3.6 g/dL (3.2-5.0); BILIRUBIN, TOTAL 0.3 mg/dL (0.0-1.4); CREATININE 1.5 mg/dL (0.7-1.3); POTASSIUM 3.7 mmol/l (3.5-5.1)
[2018-05-08 00:14] LABS: TOTAL PROTEIN 6.5 g/dL (6.3-8.2)
[2018-05-08 01:05] VITALS: BP 109/72
== END 2018-05-08 01:04 | disposition home or self-care (01) ==
LOC: ED 22:36
PROVIDERS: Family Medicine
DX: G89.29 Other chronic pain (principal); M25.562 Pain in left knee; Z96.652 Presence of left artificial knee joint; I12.9 Hypertensive chronic kidney disease with stage 1 through stage 4 chronic kidney disease, or unspecified chronic kidney disease; N18.9 Chronic kidney disease, unspecified

== ENCOUNTER 2018-05-16 22:54 | Emergency (ER) | payer MEDICARE ==
[~2018-05-16] VITALS: Ht 172.7 cm; Wt 77.2 kg
[2018-05-16] MEDS ORDERED: OXYCODO-APAP1 TA2 PO (23:12)
[2018-05-17 01:06] VITALS: BP 103/66
== END 2018-05-17 01:17 | disposition home or self-care (01) ==
LOC: ED 22:54
DX: M25.562 Pain in left knee (principal); M25.462 Effusion, left knee; Z96.652 Presence of left artificial knee joint
CPT/HCPCS: L1830

== ENCOUNTER 2018-05-22 10:52 | Emergency (ER) | payer MEDICARE ==
[~2018-05-22] VITALS: Ht 172.7 cm; Wt 75.0 kg
[~2018-05-22 10:52] MED LIST changes: +OXYCODO-APAP1 TA2 PO
[2018-05-22 11:44] LABS: HEMATOCRIT 30.8 % (39.0-50.0); HEMOGLOBIN 9.6 g/dl (14.0-18.0); IMMATURE GRANULOCYTES 0.4 % (0.0-5.0); MEAN CELL VOLUME 91.7 fL CALC (80.0-100.0); MEAN CORPUSCULAR HGB 28.6 pG CALC (26.0-32.0); MEAN CORPUSCULAR HGB CONC 31.2 g/L CALC (32.0-36.0); NEUT# 4.92 thou/uL (1.82-7.42); RED BLOOD COUNT 3.36 mill/uL (4.70-6.10); RED CELL DISTRI WIDTH 17.7 % (11.5-15.5)
[2018-05-22 11:58] LABS: BILIRUBIN, TOTAL 0.6 mg/dL (0.0-1.4); CREATININE 1.6 mg/dL (0.7-1.3); POTASSIUM 4.2 mmol/l (3.5-5.1); TOTAL PROTEIN 7.2 g/dL (6.3-8.2)
[2018-05-22] MEDS ORDERED: ULTRAM50 MG PO (12:57)
[2018-05-22] MEDS ORDERED: LOMOTIL2.5 MG PO (12:57)
[2018-05-22] MEDS ORDERED: BENTYL10 MG PO (12:57)
[2018-05-22 13:11] VITALS: BP 115/44
== END 2018-05-22 13:24 | disposition home or self-care (01) ==
LOC: ED 10:52
PROVIDERS: Emergency Medicine
DX: R19.7 Diarrhea, unspecified (principal); G89.29 Other chronic pain; M25.562 Pain in left knee; I10 Essential (primary) hypertension; F17.200 Nicotine dependence, unspecified, uncomplicated; Z21 Asymptomatic human immunodeficiency virus [HIV] infection status

== ENCOUNTER 2018-05-27 20:51 | Inpatient (IN) | payer MEDICARE ==
[~2018-05-27] VITALS: Ht 172.7 cm; Wt 70.0 kg
[~2018-05-27 20:51] MED LIST changes: +BENTYL10 MG PO; +LOMOTIL2.5 MG PO; +ULTRAM50 MG PO
[2018-05-27 22:19] LABS: HEMATOCRIT 31.2 % (39.0-50.0); HEMOGLOBIN 9.6 g/dl (14.0-18.0); IMMATURE GRANULOCYTES 0.4 % (0.0-5.0); MEAN CELL VOLUME 93.7 fL CALC (80.0-100.0); MEAN CORPUSCULAR HGB 28.8 pG CALC (26.0-32.0); MEAN CORPUSCULAR HGB CONC 30.8 g/L CALC (32.0-36.0); NEUT# 4.85 thou/uL (1.82-7.42); RED BLOOD COUNT 3.33 mill/uL (4.70-6.10); RED CELL DISTRI WIDTH 19.2 % (11.5-15.5)
[2018-05-27 22:38] LABS: ALBUMIN 3.6 g/dL (3.2-5.0); BILIRUBIN, TOTAL 0.6 mg/dL (0.0-1.4); CREATININE 1.5 mg/dL (0.7-1.3); TOTAL PROTEIN 6.7 g/dL (6.3-8.2)
[2018-05-28] VITALS (8 sets, daily range): BP systolic 82–132; BP diastolic 50–71
[2018-05-28 02:44] LABS: URINE BLOOD DIPSTICK LARGE (NEGATIVE); URINE GLUCOSE - DIPSTICK NEGATIVE (NEGATIVE); URINE KETONE NEGATIVE (NEGATIVE); URINE LEUK ESTERASE NEGATIVE (NEGATIVE); URINE NITRITE - DIPSTICK NEGATIVE (Negative); URINE PH 5.5 (4.5-8.0); URINE PROTEIN - DIPSTICK 100 mg/dL (NEG-TRACE); URINE SPECIFIC GRAVITY >=1.030; URINE UROBILINOGEN - DIPSTICK 0.2 E.U./dL (0.2)
[2018-05-28 02:47] LABS: URINE COLOR AMBER
[2018-05-28 02:50] LABS: URINE BILIRUBIN - DIPSTICK NEGATIVE (NEGATIVE)
[2018-05-28 02:54] LABS: URINE BACTERIA FEW hpf; URINE RBC TNTC RBC/hpf (0-5); URINE WBC 0-2 WBC/hpf (0-5)
[2018-05-28] MEDS ORDERED: IMODIUM2 MG PO (04:28)
[2018-05-28] MEDS ORDERED: CIPROFLOXACN500 MG PO (04:28)
[2018-05-28 11:01] LABS: HEMATOCRIT 29.9 % (39.0-50.0); HEMOGLOBIN 9.3 g/dl (14.0-18.0); IMMATURE GRANULOCYTES 0.3 % (0.0-5.0); MEAN CELL VOLUME 94.3 fL CALC (80.0-100.0); MEAN CORPUSCULAR HGB 29.3 pG CALC (26.0-32.0); MEAN CORPUSCULAR HGB CONC 31.1 g/L CALC (32.0-36.0); NEUT# 3.79 thou/uL (1.82-7.42); RED BLOOD COUNT 3.17 mill/uL (4.70-6.10); RED CELL DISTRI WIDTH 19.3 % (11.5-15.5)
[2018-05-28 11:06] LABS: ALKALINE PHOSPHATASE 210 u/l (38-126); ANION GAP 12 (6-22 (CALC)); BILIRUBIN, TOTAL 0.4 mg/dL (0.0-1.4); BUN 18 mg/dL (9-20); BUN/CREATININE RATIO 14 (12-20 (CALC)); CALCULATED LDLCHOLESTEROL 79 mg/dL (62-129 (CALC)); CARBON DIOXIDE 19 mmol/l (22-30); CHLORIDE 118 mmol/l (95-108); CHOLESTEROL HDL RATIO 4.1 (<4.4 (CALC)); CREATININE 1.3 mg/dL (0.7-1.3); GFR 57 ML/MIN (>=60 (CALC)); GFR FOR AFR.AMER. > 60 ML/MIN (>=60 (CALC)); HDL CHOLESTEROL 31 mg/dL (>=40); POTASSIUM 4.1 mmol/l (3.5-5.1); SGOT/AST 12 u/l (17-59); SODIUM 145 mmol/l (137-146); TOTAL CHOLESTEROL 128 mg/dl (0-199); TOTAL PROTEIN 5.8 g/dL (6.3-8.2); TOTAL TRIGLYCERIDES 88 mg/dl (30-149); VLDL CHOLESTROL 18 mg/dl (8-62 (CALC))
[2018-05-29] VITALS: BP 100/63
[2018-05-29 04:20] VITALS: BP 98/62
[2018-05-29 05:24] LABS: HEMATOCRIT 31.2 % (39.0-50.0); HEMOGLOBIN 9.5 g/dl (14.0-18.0); IMMATURE GRANULOCYTES 0.4 % (0.0-5.0); MEAN CELL VOLUME 94.8 fL CALC (80.0-100.0); MEAN CORPUSCULAR HGB 28.9 pG CALC (26.0-32.0); MEAN CORPUSCULAR HGB CONC 30.4 g/L CALC (32.0-36.0); NEUT# 4.45 thou/uL (1.82-7.42); RED BLOOD COUNT 3.29 mill/uL (4.70-6.10); RED CELL DISTRI WIDTH 19.5 % (11.5-15.5)
[2018-05-29 06:12] LABS: ALBUMIN 3.1 g/dL (3.2-5.0); ALKALINE PHOSPHATASE 218 u/l (38-126); AMYLASE 41 u/l (30-110); ANION GAP 13 (6-22 (CALC)); BILIRUBIN, TOTAL 0.4 mg/dL (0.0-1.4); BUN 18 mg/dL (9-20); BUN/CREATININE RATIO 15 (12-20 (CALC)); CARBON DIOXIDE 20 mmol/l (22-30); CHLORIDE 116 mmol/l (95-108); CREATININE 1.2 mg/dL (0.7-1.3); GFR > 60 ML/MIN (>=60 (CALC)); GFR FOR AFR.AMER. > 60 ML/MIN (>=60 (CALC)); LIPASE 75 u/l (23-300); MAGNESIUM 1.8 mg/dL (1.6-2.3); POTASSIUM 4.2 mmol/l (3.5-5.1); SGOT/AST 11 u/l (17-59); SODIUM 145 mmol/l (137-146); TOTAL PROTEIN 6.1 g/dL (6.3-8.2)
[2018-05-29 07:58] VITALS: BP 127/73
[2018-05-29 09:02] LABS: C. DIFFICILE TOXIN A&B NEGATIVE (NEGATIVE)
[2018-05-29 11:03] VITALS: BP 114/70
[2018-05-29 16:01] VITALS: BP 110/59
[2018-05-29 19:22] VITALS: BP 108/65
[2018-05-30] VITALS (7 sets, daily range): BP systolic 113–150; BP diastolic 52–84
[2018-05-30 05:38] LABS: HEMATOCRIT 26.1 % (39.0-50.0); HEMOGLOBIN 8.3 g/dl (14.0-18.0); IMMATURE GRANULOCYTES 0.3 % (0.0-5.0); MEAN CELL VOLUME 92.9 fL CALC (80.0-100.0); MEAN CORPUSCULAR HGB 29.5 pG CALC (26.0-32.0); MEAN CORPUSCULAR HGB CONC 31.8 g/L CALC (32.0-36.0); NEUT# 9.99 thou/uL (1.82-7.42); RED BLOOD COUNT 2.81 mill/uL (4.70-6.10); RED CELL DISTRI WIDTH 19.9 % (11.5-15.5)
[2018-05-30 05:58] LABS: ANION GAP 12 (6-22 (CALC)); BUN 16 mg/dL (9-20); BUN/CREATININE RATIO 11 (12-20 (CALC)); CARBON DIOXIDE 20 mmol/l (22-30); CHLORIDE 117 mmol/l (95-108); CREATININE 1.4 mg/dL (0.7-1.3); GFR 52 ML/MIN (>=60 (CALC)); GFR FOR AFR.AMER. > 60 ML/MIN (>=60 (CALC)); MAGNESIUM 1.6 mg/dL (1.6-2.3); POTASSIUM 3.4 mmol/l (3.5-5.1); SODIUM 146 mmol/l (137-146)
[2018-05-31 05:01] VITALS: BP 150/77
[2018-05-31 05:38] LABS: HEMOGLOBIN 8.7 g/dl (14.0-18.0); IMMATURE GRANULOCYTES 0.4 % (0.0-5.0); MEAN CELL VOLUME 93.3 fL CALC (80.0-100.0); MEAN CORPUSCULAR HGB CONC 31.1 g/L CALC (32.0-36.0); NEUT# 5.28 thou/uL (1.82-7.42); RED CELL DISTRI WIDTH 20.2 % (11.5-15.5)
[2018-05-31 05:53] LABS: ALBUMIN 3.3 g/dL (3.2-5.0); ALKALINE PHOSPHATASE 209 u/l (38-126); ANION GAP 12 (6-22 (CALC)); BILIRUBIN, TOTAL 0.5 mg/dL (0.0-1.4); BUN 11 mg/dL (9-20); BUN/CREATININE RATIO 8 (12-20 (CALC)); CARBON DIOXIDE 22 mmol/l (22-30); CHLORIDE 114 mmol/l (95-108); CREATININE 1.3 mg/dL (0.7-1.3); GFR 57 ML/MIN (>=60 (CALC)); GFR FOR AFR.AMER. > 60 ML/MIN (>=60 (CALC)); MAGNESIUM 1.5 mg/dL (1.6-2.3); POTASSIUM 3.6 mmol/l (3.5-5.1); SGOT/AST 11 u/l (17-59); SODIUM 144 mmol/l (137-146); TOTAL PROTEIN 6.1 g/dL (6.3-8.2)
[2018-05-31 08:09] VITALS: BP 143/81
[2018-05-31 11:15] VITALS: BP 149/76
[2018-05-31 15:57] VITALS: BP 145/62
[2018-05-31 19:05] VITALS: BP 114/72
[2018-06-01] VITALS (11 sets, daily range): BP systolic 117–157; BP diastolic 57–90
[2018-06-01 05:33] LABS: HEMATOCRIT 28.2 % (39.0-50.0); IMMATURE GRANULOCYTES 0.3 % (0.0-5.0); MEAN CORPUSCULAR HGB CONC 31.9 g/L CALC (32.0-36.0); NEUT# 5.17 thou/uL (1.82-7.42); RED BLOOD COUNT 3.1 mill/uL (4.70-6.10); RED CELL DISTRI WIDTH 19.8 % (11.5-15.5)
[2018-06-01 06:11] LABS: ALBUMIN 3.1 g/dL (3.2-5.0); ALKALINE PHOSPHATASE 197 u/l (38-126); ANION GAP 11 (6-22 (CALC)); BILIRUBIN, TOTAL 0.4 mg/dL (0.0-1.4); BUN 9 mg/dL (9-20); BUN/CREATININE RATIO 9 (12-20 (CALC)); CARBON DIOXIDE 24 mmol/l (22-30); CHLORIDE 113 mmol/l (95-108); GFR > 60 ML/MIN (>=60 (CALC)); GFR FOR AFR.AMER. > 60 ML/MIN (>=60 (CALC)); MAGNESIUM 1.6 mg/dL (1.6-2.3); POTASSIUM 3.7 mmol/l (3.5-5.1); SGOT/AST 11 u/l (17-59); SODIUM 143 mmol/l (137-146); TOTAL PROTEIN 5.7 g/dL (6.3-8.2)
[2018-06-02 00:11] VITALS: BP 108/71
[2018-06-02 04:30] VITALS: BP 106/66
[2018-06-02 05:36] LABS: HEMATOCRIT 28.4 % (39.0-50.0); IMMATURE GRANULOCYTES 0.2 % (0.0-5.0); MEAN CELL VOLUME 92.5 fL CALC (80.0-100.0); MEAN CORPUSCULAR HGB 29.3 pG CALC (26.0-32.0); MEAN CORPUSCULAR HGB CONC 31.7 g/L CALC (32.0-36.0); NEUT# 2.46 thou/uL (1.82-7.42); RED BLOOD COUNT 3.07 mill/uL (4.70-6.10); RED CELL DISTRI WIDTH 20.1 % (11.5-15.5)
[2018-06-02 05:52] LABS: ALBUMIN 2.8 g/dL (3.2-5.0); ALKALINE PHOSPHATASE 174 u/l (38-126); ANION GAP 10 (6-22 (CALC)); BILIRUBIN, TOTAL 0.5 mg/dL (0.0-1.4); BUN 7 mg/dL (9-20); BUN/CREATININE RATIO 8 (12-20 (CALC)); CARBON DIOXIDE 27 mmol/l (22-30); CHLORIDE 110 mmol/l (95-108); GFR > 60 ML/MIN (>=60 (CALC)); GFR FOR AFR.AMER. > 60 ML/MIN (>=60 (CALC)); MAGNESIUM 1.5 mg/dL (1.6-2.3); POTASSIUM 3.9 mmol/l (3.5-5.1); SGOT/AST 14 u/l (17-59); SODIUM 144 mmol/l (137-146); TOTAL PROTEIN 5.3 g/dL (6.3-8.2)
[2018-06-02 09:01] VITALS: BP 119/68
[2018-06-02 10:58] VITALS: BP 126/87
[2018-06-02 13:00] VITALS: BP 126/87
[2018-06-02] MEDS ORDERED: AMBIEN5 MG PO (14:04)
== END 2018-06-02 15:00 | disposition home or self-care (01) | DRG 669 ==
LOC: ED 20:51 → ED-I 05-28 07:43 → ED 05-28 07:59 → MS2 05-28 08:00
PROVIDERS: Emergency Medicine; Family Medicine; Nurse Practitioner Family; ADMIT Internal Medicine Nephrology; ATTEND Internal Medicine Nephrology
PROC: 0TC68ZZ Extirpation of Matter from Right Ureter, Via Natural or Artificial Opening Endoscopic (ICD-10-PCS; principal; 2018-06-01)
PROC: 0TP98DZ Removal of Intraluminal Device from Ureter, Via Natural or Artificial Opening Endoscopic (ICD-10-PCS; 2018-06-01)
PROC: BT1DZZZ Fluoroscopy of Right Kidney, Ureter and Bladder (ICD-10-PCS; 2018-06-01)
DX: N17.9 Acute kidney failure, unspecified (principal); E46 Unspecified protein-calorie malnutrition; K52.9 Noninfective gastroenteritis and colitis, unspecified; N13.2 Hydronephrosis with renal and ureteral calculous obstruction; E86.0 Dehydration; I12.9 Hypertensive chronic kidney disease with stage 1 through stage 4 chronic kidney disease, or unspecified chronic kidney disease; N18.3 Chronic kidney disease, stage 3 (moderate); Q62.8 Other congenital malformations of ureter; D63.1 Anemia in chronic kidney disease; G47.30 Sleep apnea, unspecified; J44.9 Chronic obstructive pulmonary disease, unspecified; F17.210 Nicotine dependence, cigarettes, uncomplicated; I95.89 Other hypotension; I95.2 Hypotension due to drugs; R00.1 Bradycardia, unspecified; G47.00 Insomnia, unspecified; R68.0 Hypothermia, not associated with low environmental temperature; G89.4 Chronic pain syndrome; G62.9 Polyneuropathy, unspecified; F41.9 Anxiety disorder, unspecified; T40.2X5A Adverse effect of other opioids, initial encounter; Z68.24 Body mass index [BMI] 24.0-24.9, adult; Z21 Asymptomatic human immunodeficiency virus [HIV] infection status; Z86.718 Personal history of other venous thrombosis and embolism; Z96.653 Presence of artificial knee joint, bilateral; Z72.89 Other problems related to lifestyle; Z79.01 Long term (current) use of anticoagulants; Z79.899 Other long term (current) drug therapy
CPT/HCPCS: C1769; J1756; Q9967

== ENCOUNTER 2018-06-23 15:34 | Emergency (ER) | payer MEDICARE, MEDICAID ==
[~2018-06-23] VITALS: Ht 172.7 cm; Wt 72.7 kg
[~2018-06-23 15:34] MED LIST changes: +CIPROFLOXACN500 MG PO; +IMODIUM2 MG PO
[2018-06-23 16:17] LABS: IMMATURE GRANULOCYTES 0.4 % (0.0-5.0); MEAN CELL VOLUME 90.5 fL CALC (80.0-100.0); MEAN CORPUSCULAR HGB 28.3 pG CALC (26.0-32.0); MEAN CORPUSCULAR HGB CONC 31.3 g/L CALC (32.0-36.0); NEUT# 3.52 thou/uL (1.82-7.42); RED BLOOD COUNT 3.99 mill/uL (4.70-6.10); RED CELL DISTRI WIDTH 19.7 % (11.5-15.5)
[2018-06-23 16:19] LABS: HEMATOCRIT 36.1 % (39.0-50.0); HEMOGLOBIN 11.3 g/dl (14.0-18.0)
[2018-06-23] MEDS ORDERED: DESCOVY 200-251 TAB PO (16:28)
[2018-06-23 16:30] LABS: INTERNATIONAL NORMALIZED RATIO 1.1 RATIO (0.7-1.3); PROTHROMBIN TIME 11.3 SECONDS (9.0-12.5)
[2018-06-23 16:32] LABS: ALKALINE PHOSPHATASE 204 u/l (38-126); ANION GAP 16 (6-22 (CALC)); BILIRUBIN, TOTAL 0.6 mg/dL (0.0-1.4); BUN 17 mg/dL (9-20); BUN/CREATININE RATIO 11 (12-20 (CALC)); CARBON DIOXIDE 23 mmol/l (22-30); CHLORIDE 106 mmol/l (95-108); CREATININE 1.6 mg/dL (0.7-1.3); GFR 44 ML/MIN (>=60 (CALC)); GFR FOR AFR.AMER. 54 ML/MIN (>=60 (CALC)); LIPASE 351 u/l (23-300); MAGNESIUM 1.8 mg/dL (1.6-2.3); POTASSIUM 3.8 mmol/l (3.5-5.1); SGOT/AST 17 u/l (17-59); SODIUM 141 mmol/l (137-146)
[2018-06-23 16:33] LABS: ALBUMIN 4.5 g/dL (3.2-5.0); TOTAL PROTEIN 7.9 g/dL (6.3-8.2)
[2018-06-23 17:19] LABS: URINE BILIRUBIN - DIPSTICK NEGATIVE (NEGATIVE); URINE BLOOD DIPSTICK NEGATIVE (NEGATIVE); URINE COLOR YELLOW; URINE GLUCOSE - DIPSTICK NEGATIVE (NEGATIVE); URINE KETONE NEGATIVE (NEGATIVE); URINE LEUK ESTERASE NEGATIVE (NEGATIVE); URINE NITRITE - DIPSTICK NEGATIVE (Negative); URINE PROTEIN - DIPSTICK NEGATIVE (NEG-TRACE); URINE SPECIFIC GRAVITY <=1.005; URINE UROBILINOGEN - DIPSTICK 0.2 E.U./dL (0.2)
[2018-06-23 19:27] VITALS: BP 130/68
== END 2018-06-23 19:17 | disposition short-term general hospital (02) ==
LOC: ED 15:34
PROVIDERS: Family Medicine
DX: R00.1 Bradycardia, unspecified (principal); I10 Essential (primary) hypertension; F17.200 Nicotine dependence, unspecified, uncomplicated; Z21 Asymptomatic human immunodeficiency virus [HIV] infection status; R42 Dizziness and giddiness; R51 Headache

== ENCOUNTER 2018-07-15 15:25 | Emergency (ER) | payer MEDICARE, MEDICAID ==
[~2018-07-15] VITALS: Ht 172.7 cm; Wt 72.7 kg
[~2018-07-15 15:25] MED LIST changes: +DESCOVY 200-251 TAB PO
[2018-07-15] MEDS ORDERED: DICLOFENAC SODIUM3 % TOP (16:41)
[2018-07-15 16:45] VITALS: BP 127/88
== END 2018-07-15 16:45 | disposition home or self-care (01) ==
LOC: ED 15:25
DX: G89.29 Other chronic pain (principal); M25.562 Pain in left knee; M25.561 Pain in right knee

== ENCOUNTER 2018-09-17 11:46 | Emergency (ER) | payer MEDICARE, MEDICAID ==
[~2018-09-17] VITALS: Ht 172.7 cm; Wt 72.7 kg
[~2018-09-17 11:46] MED LIST changes: +DICLOFENAC SODIUM3 % TOP
[2018-09-17 12:20] VITALS: BP 148/94
== END 2018-09-17 12:20 | disposition home or self-care (01) ==
LOC: ED 11:46
DX: I77.6 Arteritis, unspecified (principal); D17.1 Benign lipomatous neoplasm of skin and subcutaneous tissue of trunk; I10 Essential (primary) hypertension; G62.9 Polyneuropathy, unspecified; Z21 Asymptomatic human immunodeficiency virus [HIV] infection status; Z86.718 Personal history of other venous thrombosis and embolism

== ENCOUNTER 2018-10-10 09:56 | Emergency (ER) | payer MEDICARE, MEDICAID ==
[~2018-10-10] VITALS: Ht 172.7 cm; Wt 75.0 kg
[2018-10-10 11:37] LABS: HEMATOCRIT 40.9 % (39.0-50.0); HEMOGLOBIN 12.7 g/dl (14.0-18.0); IMMATURE GRANULOCYTES 0.3 % (0.0-5.0); MEAN CELL VOLUME 90.7 fL CALC (80.0-100.0); MEAN CORPUSCULAR HGB 28.2 pG CALC (26.0-32.0); MEAN CORPUSCULAR HGB CONC 31.1 g/L CALC (32.0-36.0); NEUT# 3.03 thou/uL (1.82-7.42); RED BLOOD COUNT 4.51 mill/uL (4.70-6.10); RED CELL DISTRI WIDTH 18.6 % (11.5-15.5)
[2018-10-10 12:03] LABS: ALBUMIN 4.3 g/dL (3.2-5.0); ALKALINE PHOSPHATASE 116 u/l (38-126); BILIRUBIN, TOTAL 0.5 mg/dL (0.0-1.4); BUN 22 mg/dL (9-20); BUN/CREATININE RATIO 18 (12-20 (CALC)); CHLORIDE 106 mmol/l (95-108); CPK 49 u/l (52-200); CREATININE 1.2 mg/dL (0.7-1.3); GFR > 60 ML/MIN (>=60 (CALC)); GFR FOR AFR.AMER. > 60 ML/MIN (>=60 (CALC)); SGOT/AST 20 u/l (17-59); SODIUM 143 mmol/l (137-146); TOTAL PROTEIN 7.5 g/dL (6.3-8.2)
[2018-10-10 12:08] LABS: ANION GAP 12 (6-22 (CALC)); CARBON DIOXIDE 30 mmol/l (22-30); POTASSIUM 5.4 mmol/l (3.5-5.1)
[2018-10-10 12:15] LABS: INTERNATIONAL NORMALIZED RATIO 0.9 RATIO (0.7-1.3); PROTHROMBIN TIME 9.6 SECONDS (9.0-12.5)
[2018-10-10 12:25] LABS: URINE BILIRUBIN - DIPSTICK NEGATIVE (NEGATIVE); URINE BLOOD DIPSTICK NEGATIVE (NEGATIVE); URINE COLOR YELLOW; URINE GLUCOSE - DIPSTICK NEGATIVE (NEGATIVE); URINE KETONE NEGATIVE (NEGATIVE); URINE LEUK ESTERASE NEGATIVE (NEGATIVE); URINE NITRITE - DIPSTICK NEGATIVE (Negative); URINE PROTEIN - DIPSTICK NEGATIVE (NEG-TRACE); URINE SPECIFIC GRAVITY 1.015; URINE UROBILINOGEN - DIPSTICK 0.2 E.U./dL (0.2)
[2018-10-10 12:37] LABS: BARBITURATES NEGATIVE (NEGATIVE); COCAINE NEGATIVE (NEGATIVE); METHADONE NEGATIVE (NEGATIVE); OXCYCODONE NEGATIVE (NEGATIVE); TETRAHYDROCANNABIONOL NEGATIVE (NEGATIVE); TRICYLIC ANTIDEPRESSANTS NEGATIVE (NEGATIVE)
[2018-10-10 14:48] VITALS: BP 142/95
== END 2018-10-10 14:48 | disposition home or self-care (01) ==
LOC: ED 09:56
PROVIDERS: Emergency Medicine
DX: R20.2 Paresthesia of skin (principal); R53.1 Weakness; I10 Essential (primary) hypertension; G62.9 Polyneuropathy, unspecified; F17.200 Nicotine dependence, unspecified, uncomplicated; Z21 Asymptomatic human immunodeficiency virus [HIV] infection status

== ENCOUNTER 2019-05-04 07:52 | Emergency (ER) | payer MEDICARE, MEDICAID ==
[~2019-05-04 07:52] MED LIST changes: +CYMBALTA60 MG PO; +LEVOTHYROXIN88 MC1 PO
[2019-05-04] MEDS ORDERED: ZPAK PO (08:36)
[2019-05-04 09:26] VITALS: BP 141/105
[2019-07-26] MEDS ORDERED: ANORO ELLIPTA 61 AER IN (09:51)
== END 2019-05-04 08:40 | disposition home or self-care (01) ==
LOC: ED 07:52
DX: J02.9 Acute pharyngitis, unspecified (principal); I10 Essential (primary) hypertension; G62.9 Polyneuropathy, unspecified; F17.210 Nicotine dependence, cigarettes, uncomplicated; Z21 Asymptomatic human immunodeficiency virus [HIV] infection status

== ENCOUNTER 2019-07-04 | Emergency (ER) | payer MEDICARE, MEDICAID ==
[~2019-07-04] MED LIST changes: +ZPAK PO
[2019-07-04 10:39] LABS: IMMATURE GRANULOCYTES 0.3 % (0.0-5.0); MEAN CELL VOLUME 92.9 fL CALC (80.0-100.0); MEAN CORPUSCULAR HGB 30.7 pG CALC (26.0-32.0); MEAN CORPUSCULAR HGB CONC 33.1 g/dL CAL (32.0-36.0); NEUT# 3.1 thou/uL (1.82-7.42); RED BLOOD COUNT 5.24 mill/uL (4.70-6.10); RED CELL DISTRI WIDTH 21.2 % (11.5-15.5)
[2019-07-04 11:02] LABS: HEMATOCRIT 48.7 % (39.0-50.0); HEMOGLOBIN 16.1 g/dl (14.0-18.0)
[2019-07-04 11:03] LABS: URINE BILIRUBIN - DIPSTICK NEGATIVE (NEGATIVE); URINE BLOOD DIPSTICK NEGATIVE (NEGATIVE); URINE COLOR YELLOW; URINE GLUCOSE - DIPSTICK NEGATIVE (NEGATIVE); URINE KETONE NEGATIVE (NEGATIVE); URINE LEUK ESTERASE NEGATIVE (NEGATIVE); URINE NITRITE - DIPSTICK NEGATIVE (Negative); URINE PROTEIN - DIPSTICK 30 mg/dL (NEG-TRACE); URINE SPECIFIC GRAVITY 1.025
[2019-07-04 11:08] LABS: ALBUMIN 4.7 g/dL (3.2-5.0); ALKALINE PHOSPHATASE 144 u/l (38-126); ANION GAP 15 (6-22 (CALC)); BUN 26 mg/dL (8-23); BUN/CREATININE RATIO 22 (12-20 (CALC)); CARBON DIOXIDE 24 mmol/l (22-30); CHLORIDE 102 mmol/l (95-108); CREATININE 1.2 mg/dL (0.7-1.3); GFR > 60 ML/MIN (>=60 (CALC)); GFR FOR AFR.AMER. > 60 ML/MIN (>=60 (CALC)); POTASSIUM 4.3 mmol/l (3.5-5.1); SGOT/AST 31 u/l (19-48); SODIUM 137 mmol/l (137-146); TOTAL PROTEIN 8.3 g/dL (6.3-8.2)
[2019-07-04 11:09] LABS: BILIRUBIN, TOTAL 1.1 mg/dL (0.0-1.4)
[2019-07-04 11:41] LABS: URINE MUCUS FEW hpf (NONE-FEW); URINE RBC 0-2 RBC/hpf (0-5); URINE SQUAMOUS EPITHELIAL CELL FEW EPI/hpf (0-FEW)
[2019-07-26] MEDS ORDERED: ANORO ELLIPTA 61 AER IN (09:51)
== END 2019-07-04 11:58 | disposition home or self-care (01) ==
PROVIDERS: Family Medicine
DX: R13.10 Dysphagia, unspecified (principal); I10 Essential (primary) hypertension; F17.200 Nicotine dependence, unspecified, uncomplicated; Z21 Asymptomatic human immunodeficiency virus [HIV] infection status

== ENCOUNTER 2019-08-03 08:48 | Day surgery (SDC) | payer MEDICARE, MEDICAID ==
[~2019-08-03 08:48] MED LIST changes: +ANORO ELLIPTA 61 AER IN
[2019-08-03 11:59] VITALS: BP 152/91
== END 2019-08-03 12:10 | disposition home or self-care (01) ==
LOC: ORM 08:48
PROVIDERS: ATTEND Surgery
PROC: 0DB48ZX Excision of Esophagogastric Junction, Via Natural or Artificial Opening Endoscopic, Diagnostic (ICD-10-PCS; principal; 2019-08-03)
PROC: 0DB78ZX Excision of Stomach, Pylorus, Via Natural or Artificial Opening Endoscopic, Diagnostic (ICD-10-PCS; 2019-08-03)
DX: K29.50 Unspecified chronic gastritis without bleeding (principal); I10 Essential (primary) hypertension; F17.210 Nicotine dependence, cigarettes, uncomplicated; Z21 Asymptomatic human immunodeficiency virus [HIV] infection status; Z11.59 Encounter for screening for other viral diseases

== ENCOUNTER 2019-08-25 22:46 | Emergency (ER) | payer MEDICARE, MEDICAID ==
[~2019-08-25] VITALS: Ht 172.7 cm; Wt 80.9 kg
[2019-08-25] MEDS ORDERED: SONATA10 MG PO (23:13)
[2019-08-25] MEDS ORDERED: QUETIAPINE FUMA25 MG PO (23:13)
[2019-08-25] MEDS ORDERED: FAMCICLOVIR500 MG PO (23:50)
[2019-08-25] MEDS ORDERED: DULOXETINE HCL30 MG PO (23:51)
[2019-08-25] MEDS ORDERED: OMEPRAZOLE DR20 MG PO (23:52)
[2019-08-26] MEDS ORDERED: PREDNISONE50 MG PO ×4 (00:24→11:49)
[2019-08-26] MEDS ORDERED: TORADOL PO ×4 (00:24→11:49)
[2019-08-26 00:35] VITALS: BP 142/97
== END 2019-08-26 00:35 | disposition home or self-care (01) ==
LOC: ED 22:46
DX: M25.551 Pain in right hip (principal); I10 Essential (primary) hypertension; G62.9 Polyneuropathy, unspecified; F17.200 Nicotine dependence, unspecified, uncomplicated; Z21 Asymptomatic human immunodeficiency virus [HIV] infection status; Z86.718 Personal history of other venous thrombosis and embolism

== ENCOUNTER 2019-08-29 16:30 | Emergency (ER) | payer MEDICARE, MEDICAID ==
[~2019-08-29] VITALS: Ht 172.7 cm; Wt 81.8 kg
[~2019-08-29 16:30] MED LIST changes: +DULOXETINE HCL30 MG PO; +FAMCICLOVIR500 MG PO; +OMEPRAZOLE DR20 MG PO; +PREDNISONE50 MG PO; +QUETIAPINE FUMA25 MG PO; +SONATA10 MG PO; +TORADOL PO
[2019-08-29 19:10] VITALS: BP 126/87
== END 2019-08-29 19:10 | disposition home or self-care (01) ==
LOC: ED 16:30
DX: M25.551 Pain in right hip (principal); M25.561 Pain in right knee; I10 Essential (primary) hypertension; G62.9 Polyneuropathy, unspecified; F17.210 Nicotine dependence, cigarettes, uncomplicated; Z86.718 Personal history of other venous thrombosis and embolism; Z21 Asymptomatic human immunodeficiency virus [HIV] infection status; Z95.0 Presence of cardiac pacemaker

== ENCOUNTER 2019-09-01 08:10 | Emergency (ER) | payer MEDICARE, MEDICAID ==
[~2019-09-01] VITALS: Ht 172.7 cm; Wt 79.5 kg
[2019-09-01 09:25] LABS: HEMATOCRIT 49.4 % (39.0-50.0); HEMOGLOBIN 16.3 g/dl (14.0-18.0); IMMATURE GRANULOCYTES 0.7 % (0.0-5.0); MEAN CELL VOLUME 99.6 fL CALC (80.0-100.0); MEAN CORPUSCULAR HGB 32.9 pG CALC (26.0-32.0); NEUT# 9.14 thou/uL (1.82-7.42); RED BLOOD COUNT 4.96 mill/uL (4.70-6.10); RED CELL DISTRI WIDTH 19.1 % (11.5-15.5)
[2019-09-01 09:45] LABS: ALBUMIN 4.5 g/dL (3.2-5.0); ALKALINE PHOSPHATASE 133 u/l (38-126); ANION GAP 10 (6-22 (CALC)); BUN 25 mg/dL (8-23); BUN/CREATININE RATIO 21 (12-20 (CALC)); CARBON DIOXIDE 29 mmol/l (22-30); CHLORIDE 102 mmol/l (95-108); CREATININE 1.2 mg/dL (0.7-1.3); GFR > 60 ML/MIN (>=60 (CALC)); GFR FOR AFR.AMER. > 60 ML/MIN (>=60 (CALC)); POTASSIUM 4.5 mmol/l (3.5-5.1); SGOT/AST 24 u/l (19-48); SODIUM 136 mmol/l (137-146); TOTAL PROTEIN 7.3 g/dL (6.3-8.2)
[2019-09-01 09:46] LABS: BILIRUBIN, TOTAL 1.2 mg/dL (0.0-1.4)
[2019-09-01 10:33] LABS: URINE BILIRUBIN - DIPSTICK NEGATIVE (NEGATIVE); URINE BLOOD DIPSTICK NEGATIVE (NEGATIVE); URINE COLOR YELLOW; URINE GLUCOSE - DIPSTICK NEGATIVE (NEGATIVE); URINE KETONE NEGATIVE (NEGATIVE); URINE LEUK ESTERASE NEGATIVE (NEGATIVE); URINE NITRITE - DIPSTICK NEGATIVE (Negative); URINE PH 6.5 (4.5-8.0); URINE PROTEIN - DIPSTICK NEGATIVE (NEG-TRACE)
[2019-09-01 12:05] VITALS: BP 148/100
== END 2019-09-01 12:16 | disposition home or self-care (01) ==
LOC: ED 08:10
PROVIDERS: Student in an Organized Health Care Education/Training Program
DX: R10.31 Right lower quadrant pain (principal); I10 Essential (primary) hypertension; G62.9 Polyneuropathy, unspecified; F17.210 Nicotine dependence, cigarettes, uncomplicated; Z21 Asymptomatic human immunodeficiency virus [HIV] infection status; Z86.718 Personal history of other venous thrombosis and embolism
CPT/HCPCS: Q9967

== ENCOUNTER 2019-09-14 16:36 | Emergency (ER) | payer MEDICARE, MEDICAID ==
[~2019-09-14] VITALS: Ht 172.7 cm; Wt 79.0 kg
[2019-09-14 17:56] VITALS: BP 165/107
== END 2019-09-14 18:05 | disposition home or self-care (01) ==
LOC: ED 16:36
DX: R10.31 Right lower quadrant pain (principal); I10 Essential (primary) hypertension; G62.9 Polyneuropathy, unspecified; F17.200 Nicotine dependence, unspecified, uncomplicated; Z21 Asymptomatic human immunodeficiency virus [HIV] infection status; Z79.01 Long term (current) use of anticoagulants; Z86.718 Personal history of other venous thrombosis and embolism

== ENCOUNTER 2019-10-02 12:02 | Emergency (ER) | payer MEDICARE, MEDICAID ==
[~2019-10-02] VITALS: Ht 172.7 cm; Wt 86.4 kg
[2019-10-02 13:29] LABS: HEMATOCRIT 53.3 % (39.0-50.0); HEMOGLOBIN 17.2 g/dl (14.0-18.0); IMMATURE GRANULOCYTES 0.6 % (0.0-5.0); MEAN CELL VOLUME 103.7 fL CALC (80.0-100.0); MEAN CORPUSCULAR HGB 33.5 pG CALC (26.0-32.0); MEAN CORPUSCULAR HGB CONC 32.3 g/dL CAL (32.0-36.0); NEUT# 8.8 thou/uL (1.82-7.42); RED BLOOD COUNT 5.14 mill/uL (4.70-6.10); RED CELL DISTRI WIDTH 16.4 % (11.5-15.5)
[2019-10-02 13:34] LABS: URINE BLOOD DIPSTICK NEGATIVE (NEGATIVE); URINE COLOR YELLOW; URINE GLUCOSE - DIPSTICK NEGATIVE (NEGATIVE); URINE KETONE 15 mg/dL (NEGATIVE); URINE LEUK ESTERASE NEGATIVE (NEGATIVE); URINE NITRITE - DIPSTICK NEGATIVE (Negative); URINE PH 5.5 (4.5-8.0); URINE PROTEIN - DIPSTICK 100 mg/dL (NEG-TRACE); URINE SPECIFIC GRAVITY >=1.030; URINE UROBILINOGEN - DIPSTICK 0.2 E.U./dL (0.2)
[2019-10-02 13:35] LABS: URINE BILIRUBIN - DIPSTICK SMALL (NEGATIVE)
[2019-10-02 13:36] LABS: URINE EPITHELIAL CELLS FEW EPI/hpf (0-FEW); URINE MUCUS MODERATE hpf (NONE-FEW)
[2019-10-02 13:47] LABS: ALBUMIN 4.8 g/dL (3.2-5.0); ALKALINE PHOSPHATASE 128 u/l (38-126); BUN 19 mg/dL (8-23); BUN/CREATININE RATIO 13 (12-20 (CALC)); CHLORIDE 102 mmol/l (95-108); CREATININE 1.4 mg/dL (0.7-1.3); GFR 52 ML/MIN (>=60 (CALC)); GFR FOR AFR.AMER. > 60 ML/MIN (>=60 (CALC)); LIPASE 190 u/l (23-300); POTASSIUM 3.6 mmol/l (3.5-5.1); SGOT/AST 39 u/l (19-48); SODIUM 140 mmol/l (137-146); TOTAL PROTEIN 8.4 g/dL (6.3-8.2)
[2019-10-02 13:52] LABS: ANION GAP 13 (6-22 (CALC)); BILIRUBIN, TOTAL 0.8 mg/dL (0.0-1.4); CARBON DIOXIDE 29 mmol/l (22-30)
[2019-10-02] MEDS ORDERED: TRAMADOL HYDROC50 M1 PO (15:17)
[2019-10-02 15:30] VITALS: BP 135/89
== END 2019-10-02 15:31 | disposition home or self-care (01) ==
LOC: ED 12:02
DX: R10.84 Generalized abdominal pain (principal); I10 Essential (primary) hypertension; Z21 Asymptomatic human immunodeficiency virus [HIV] infection status; G62.9 Polyneuropathy, unspecified; Z95.0 Presence of cardiac pacemaker; Z86.718 Personal history of other venous thrombosis and embolism
CPT/HCPCS: Q9967

== ENCOUNTER 2019-12-26 08:43 | Day surgery (SDC) | payer MEDICARE, MEDICAID ==
[~2019-12-26] VITALS: Ht 172.7 cm; Wt 88.5 kg
[~2019-12-26 08:43] MED LIST changes: +ATENOLOL50 MG PO; +LYRICA100 MG PO; +TRAMADOL HYDROC50 M1 PO
[2019-12-26 11:22] VITALS: BP 96/65
== END 2019-12-26 11:45 | disposition home or self-care (01) ==
LOC: ENDO 08:43
PROVIDERS: ATTEND Surgery
PROC: 0DB98ZX Excision of Duodenum, Via Natural or Artificial Opening Endoscopic, Diagnostic (ICD-10-PCS; principal; 2019-12-26)
PROC: 0DB78ZX Excision of Stomach, Pylorus, Via Natural or Artificial Opening Endoscopic, Diagnostic (ICD-10-PCS; 2019-12-26)
PROC: 0DBP8ZX Excision of Rectum, Via Natural or Artificial Opening Endoscopic, Diagnostic (ICD-10-PCS; 2019-12-26)
DX: K29.70 Gastritis, unspecified, without bleeding (principal); K44.9 Diaphragmatic hernia without obstruction or gangrene; K31.7 Polyp of stomach and duodenum; Z12.11 Encounter for screening for malignant neoplasm of colon; D12.8 Benign neoplasm of rectum; I10 Essential (primary) hypertension; G62.9 Polyneuropathy, unspecified; F41.9 Anxiety disorder, unspecified; F17.210 Nicotine dependence, cigarettes, uncomplicated; Z21 Asymptomatic human immunodeficiency virus [HIV] infection status; Z95.0 Presence of cardiac pacemaker; Z20.828 Contact with and (suspected) exposure to other viral communicable diseases

== ENCOUNTER 2019-12-28 13:41 | Emergency (ER) | payer MEDICARE, MEDICAID ==
[~2019-12-28] VITALS: Ht 172.7 cm; Wt 88.6 kg
[2019-12-28 15:22] LABS: IMMATURE GRANULOCYTES 0.4 % (0.0-5.0); MEAN CELL VOLUME 105.3 fL CALC (80.0-100.0); MEAN CORPUSCULAR HGB CONC 32.3 g/dL CAL (32.0-36.0); NEUT# 3.79 thou/uL (1.82-7.42); RED CELL DISTRI WIDTH 15.9 % (11.5-15.5)
[2019-12-28 15:28] LABS: HEMATOCRIT 42.1 % (39.0-50.0); HEMOGLOBIN 13.6 g/dl (14.0-18.0)
[2019-12-28 16:16] LABS: ALKALINE PHOSPHATASE 95 u/l (38-126); ANION GAP 9 (6-22 (CALC)); BILIRUBIN, TOTAL 0.5 mg/dL (0.0-1.4); BUN 16 mg/dL (8-23); BUN/CREATININE RATIO 13 (12-20 (CALC)); CARBON DIOXIDE 27 mmol/l (22-30); CHLORIDE 111 mmol/l (95-108); CREATININE 1.2 mg/dL (0.7-1.3); GFR > 60 ML/MIN (>=60 (CALC)); GFR FOR AFR.AMER. > 60 ML/MIN (>=60 (CALC)); SGOT/AST 29 u/l (19-48); SODIUM 143 mmol/l (137-146)
[2019-12-28 16:20] LABS: ALBUMIN 3.7 g/dL (3.2-5.0); TOTAL PROTEIN 6.7 g/dL (6.3-8.2)
[2019-12-28 16:55] LABS: URINE BLOOD DIPSTICK NEGATIVE (NEGATIVE); URINE COLOR YELLOW; URINE GLUCOSE - DIPSTICK NEGATIVE (NEGATIVE); URINE KETONE TRACE mg/dL (NEGATIVE); URINE LEUK ESTERASE NEGATIVE (NEGATIVE); URINE NITRITE - DIPSTICK NEGATIVE (Negative); URINE PH 5.5 (4.5-8.0); URINE PROTEIN - DIPSTICK TRACE mg/dL (NEG-TRACE); URINE SPECIFIC GRAVITY >=1.030; URINE UROBILINOGEN - DIPSTICK 0.2 E.U./dL (0.2)
[2019-12-28 16:59] LABS: URINE BILIRUBIN - DIPSTICK NEGATIVE (NEGATIVE)
[2019-12-28] MEDS ORDERED: AMOXICILLIN500 MG PO (17:03)
[2019-12-28 17:13] VITALS: BP 127/85
== END 2019-12-28 17:14 | disposition home or self-care (01) ==
LOC: ED 13:41
PROVIDERS: Emergency Medicine
DX: M79.89 Other specified soft tissue disorders (principal); I10 Essential (primary) hypertension; G62.9 Polyneuropathy, unspecified; F17.210 Nicotine dependence, cigarettes, uncomplicated; Z21 Asymptomatic human immunodeficiency virus [HIV] infection status; Z86.718 Personal history of other venous thrombosis and embolism

== ENCOUNTER 2020-01-17 13:40 | Observation (INO) | payer MEDICARE, MEDICAID ==
[~2020-01-17] VITALS: Ht 172.7 cm; Wt 90.9 kg
[~2020-01-17 13:40] MED LIST changes: +AMOXICILLIN500 MG PO
--- NOTE | 2020-01-17 13:45 | NUR ---
PATIENT TO ROOM VIA WHEELCHIAR IN [facility] FOR BEDSIDE TRIAGE.
--- NOTE | 2020-01-17 14:07 | NUR ---
PATIENT SETTLED TO ROOM. REVIEWED PLANOF CARE. CALL AVILA IN REACH,BED IN LOW POSITION. RESP EASY.
[2020-01-17] MEDS ORDERED: DESCOVY 200-251 TAB PO (14:13)
[2020-01-17] MEDS ORDERED: CYMBALTA60 MG PO (14:15)
[2020-01-17] MEDS ORDERED: FUROSEMIDE20 MG PO (14:16)
[2020-01-17] MEDS ORDERED: METOLAZONE2.5 MG PO (14:19)
[2020-01-17 14:26] LABS: HEMATOCRIT 46.1 % (39.0-50.0); IMMATURE GRANULOCYTES 0.5 % (0.0-5.0); MEAN CELL VOLUME 99.6 fL CALC (80.0-100.0); MEAN CORPUSCULAR HGB 33.7 pG CALC (26.0-32.0); MEAN CORPUSCULAR HGB CONC 33.8 g/dL CAL (32.0-36.0); NEUT# 6.82 thou/uL (1.82-7.42); RED BLOOD COUNT 4.63 mill/uL (4.70-6.10); RED CELL DISTRI WIDTH 15.4 % (11.5-15.5)
[2020-01-17 14:27] LABS: HEMOGLOBIN 15.6 g/dl (14.0-18.0)
--- NOTE | 2020-01-17 14:45 | NUR ---
PATIENT RESTING IN STRETCHER IN NAD AND DENIES ANY NEEDS. CALL AVILA WITHIN REACH.
[2020-01-17 14:46] LABS: ALBUMIN 4.6 g/dL (3.2-5.0); ALKALINE PHOSPHATASE 85 u/l (38-126); ANION GAP 18 (6-22 (CALC)); BILIRUBIN, TOTAL 0.6 mg/dL (0.0-1.4); BUN 66 mg/dL (8-23); BUN/CREATININE RATIO 27 (12-20 (CALC)); CARBON DIOXIDE 29 mmol/l (22-30); CHLORIDE 89 mmol/l (95-108); CREATININE 2.4 mg/dL (0.7-1.3); GFR 28 ML/MIN (>=60 (CALC)); GFR FOR AFR.AMER. 33 ML/MIN (>=60 (CALC)); LIPASE 365 u/l (23-300); POTASSIUM 3.3 mmol/l (3.5-5.1); SODIUM 133 mmol/l (137-146); TOTAL PROTEIN 8.1 g/dL (6.3-8.2)
[2020-01-17 14:51] LABS: SGOT/AST 46 u/l (19-48)
[2020-01-17 14:53] LABS: D-DIMER 1.79 mg/L (0.19-0.60)
[2020-01-17 15:04] LABS: ACT PARTIAL THROMBO TIME 31.2 SECONDS (20.0-32.5); PROTHROMBIN TIME 12.8 SECONDS (9.0-12.5)
[2020-01-17 15:09] LABS: INTERNATIONAL NORMALIZED RATIO 1.3 RATIO (0.7-1.3)
--- NOTE | 2020-01-17 15:44 | NUR ---
PATEINT RESTING QUIETLY,AWAITING RESULTS.CALL AVILA AVAILABLE
--- NOTE | 2020-01-17 16:01 | NUR ---
PATIENT REMINDED THE NEED FOR A URINE SAMPLE.
[2020-01-17 16:37] LABS: URINE BILIRUBIN - DIPSTICK NEGATIVE (NEGATIVE); URINE BLOOD DIPSTICK NEGATIVE (NEGATIVE); URINE COLOR YELLOW; URINE GLUCOSE - DIPSTICK NEGATIVE (NEGATIVE); URINE KETONE NEGATIVE (NEGATIVE); URINE LEUK ESTERASE NEGATIVE (NEGATIVE); URINE NITRITE - DIPSTICK NEGATIVE (Negative); URINE PROTEIN - DIPSTICK NEGATIVE (NEG-TRACE); URINE SPECIFIC GRAVITY 1.025; URINE UROBILINOGEN - DIPSTICK 0.2 E.U./dL (0.2)
--- NOTE | 2020-01-17 17:06 | NUR ---
PATIENT AT RADIOLOGY.
--- NOTE | 2020-01-17 18:00 | NUR ---
Patient aware of impending discharge. call winston available.
--- NOTE | 2020-01-17 19:04 | NUR ---
report called to Dora .nurse on M/S IN SBAR FORMAT.
[2020-01-17 19:07] VITALS: BP 109/85
--- NOTE | 2020-01-17 20:00 | NUR ---
PATIENT ADMITTED FROM ER VIA STRETCHER WITH ER STAFF IN ATTENDANCE. PATIENT ABLE TO TRANSFER TO THE BED WITHOUT DIFFICULTY. PATIENT IS AWAKE ALERT AND ORIENTEDX3. PATIENT WENT TO SEE DR MCFARLANE TODAY AND WAS SENT TO THE ER FOR EVAL. PATIENT STATES THAT HE HAS BEEN HAVING SWELLING AND REDNESS TO BLE. TAKING DIURETICS AT HOME AND HAVING SOB WITH EXHERSION. PATIENT ADMITTED FOR CHEST PAIN, ASHA ON CKD. PATIENT WITH SALINE LOCK TO LEFT HAND INTACT AND HEALTHY AT THIS TIME. IVF NS HUNG AND INFUSING AT 50CC/HR. TELE MONITOR IN PLACE. PATIENT DENIES ANY CHEST PAIN AT THIS TIME.NO PERIPHERAL EDEMA NOTED. PULSES ARE PALPABLE. DENIES ANY DIFFICULTY WITH URINATIPON AND LAST BM WAS TODAY. PATIENT WAS PROVIDED WITH MICRO MEAL AND DRINK. ORIENTED TO ROOM AND SURROUNDINGS. INSTRUCTED ON USE OF NURSE CALL LIGHT SYSTEM, TV REMOTE AND PHONE. SAFETY PRECAUTIONS REVIEWED WITH PATIENT. CALL LIGHT IN REACH. WILL CONT TO MONITOR.
--- NOTE | 2020-01-17 22:29 | NUR ---
PATIENT RESTING IN BED-MEDICATED FOR SLEEP WITH SONATA 5MG PO FOR SLEEP AND WITH TYLENOL 650MG PO FOR GENERALIZED DISCOMFORT. IVF NS PATENT AND INFUSING VIA LEFT HAND SITE AT 50CC/HR ORDERED. SAFETY PRFECAUTIONS REINFORCED. CALL LIGHT IN REACH. WILL CONT TO MONITOR.
[2020-01-17 23:40] VITALS: BP 99/68
--- NOTE | 2020-01-18 00:27 | NUR ---
PATIENT RESTING IN BED-APPEARS SLEEPING WITH O2 VIA NASAL CANNULA IN PLACE-8LPM HIGH FLOW. EYES ARE CLOSED. RESPS ARE EVEN AND UNLABORED. TELE MONITOR IN PLACE-HR-48. IVF PATENT AND INFUSING VIA RAC SITE AT KVO RATE. CALL LIGHT IN REACH. WILL CONT TO MONITOR.
--- NOTE | 2020-01-18 00:30 | NUR ---
PATIENT RESTING IN BED-APPEARS SLEEPING AT THIS TIME WITH EYES CLOSED POSITIONED ON RIGHT SIDE. RESPS ARE EVEN AND UNLABORED. IVF PATENT AND INFUSING VIA AT 50CC/HR VIA LEFT HAND SITE. TROP HAS BEEN DRAWN-AWAITING RESULTS. CALL LIGHT IN REACH. WILL CONT TO MONITOR.
[2020-01-18 03:44] VITALS: BP 91/57
--- NOTE | 2020-01-18 05:10 | NUR ---
PATIENT RESTING IN BED WITH NO COMPLAINTS AT THIS TIME. TELE MONITOR IN PLACE. IVF NS PATENT AND INFUSING AT 50CC/HR. CALL LIGHT IN REACH. WILL CONT TO MONITOR.
[2020-01-18 05:48] LABS: HEMATOCRIT 47.6 % (39.0-50.0); HEMOGLOBIN 15.8 g/dl (14.0-18.0); IMMATURE GRANULOCYTES 0.3 % (0.0-5.0); MEAN CELL VOLUME 100.4 fL CALC (80.0-100.0); MEAN CORPUSCULAR HGB 33.3 pG CALC (26.0-32.0); MEAN CORPUSCULAR HGB CONC 33.2 g/dL CAL (32.0-36.0); NEUT# 2.82 thou/uL (1.82-7.42); RED BLOOD COUNT 4.74 mill/uL (4.70-6.10); RED CELL DISTRI WIDTH 14.7 % (11.5-15.5)
[2020-01-18 06:05] LABS: BILIRUBIN, TOTAL 0.6 mg/dL (0.0-1.4); MAGNESIUM 1.9 mg/dL (1.6-2.3); POTASSIUM 3.1 mmol/l (3.5-5.1)
[2020-01-18 06:28] LABS: ALBUMIN 3.6 g/dL (3.2-5.0); CHOLESTEROL HDL RATIO 6.3 (<4.4 (CALC)); TOTAL PROTEIN 6.1 g/dL (6.3-8.2)
[2020-01-18 07:53] VITALS: BP 115/78
--- NOTE | 2020-01-18 07:58 | NUR ---
REPORT WAS RECEIVED FROM LUCY. ASSESSMENT DONE. PATIENT IS A&O X3. PATIENT STATED PAIN IN LEGS 10/01. MEDICATED PT WITH TYLENOL. TELE IN PLACE. RESPS EVEN AND UNLABORED. IVF INFSUING WELL. PT DENIES ANY OTHER NEEDS AT THIS TIME. CALL LIGHT IN REACH.
[2020-01-18 11:15] VITALS: BP 107/70
--- NOTE | 2020-01-18 11:26 | NUR ---
PATIENT IS RESTING IN BED. PATIENT STATED THE PAIN MEDICATION HELPED HIM SOME. PAIN IS NOW 6/10. PATIENT DENIES ANY OTHER NEEDS AT THIS TIME. CALL LIGHT IN REACH.
[2020-01-18 16:00] VITALS: BP 101/62
--- NOTE | 2020-01-18 16:13 | NUR ---
PATIENT STATED PAIN IN LEGS 10/01. MEDICATED PT WITH ULTRAM. PT DENIES ANY OTHER NEEDS AT THIS TIME. CALL LIGHT IN REACH.
--- NOTE | 2020-01-18 19:05 | NUR ---
PT SLEEPING AT THIS TIME. LIGHTS ARE OFF, TV ON. PT DID NOT AWAKE TO MY ENTERING ROOM, BUT NO S/O DISTRESS NOTED.
[2020-01-18 19:35] VITALS: BP 94/58
--- NOTE | 2020-01-18 22:17 | NUR ---
PT CALLED FOR SLEEP AIDE/PROVIDED. DENIES ANY OTHER NEEDS OF COMFORT AT THIS TIME. CALL LIGHT W/IN REACH. LIGHTS ARE OUT AND TV ON.
[2020-01-19 00:16] VITALS: BP 94/60
--- NOTE | 2020-01-19 01:03 | NUR ---
PT MEDICATED ORDERS PROVIDE FOR PAIN REPORTED 7/10 ON PAIN SCALE. PT REPORTS PAIN IS IN HIS LEGS. DENIES ANY OTHER NEEDS AT THIS TIME.
[2020-01-19 03:55] VITALS: BP 105/71
--- NOTE | 2020-01-19 06:00 | NUR ---
PT MEDICATED ORDERS PROVIDE, DENIES ANY OTHER NEEDS AT THIS TIME. FRESH ICEWATER PROVIDED AT THIS TIME. ENCOURAGED PT TO CALL ME NEEDS ARISE. CALL LIGHT AT SIDE.
[2020-01-19 08:30] VITALS: BP 107/72
--- NOTE | 2020-01-19 08:30 | NUR ---
ASSESSMENT IS COMPLETED: IV SITE IS FREE FROM REDNESS OR EDEMA. HR IS REG,PULSES ARE STRONG X4, ABD IS SOFT WITH ACTIVE BS. BREATH SOUNDS ARE CLEAR,BILATERALLY. NO C/O SOB. TELE MONITOR #[id number] ON PT. READING SR WITH IVCD AND ALSO PACED.
[2020-01-19 08:36] LABS: HEMOGLOBIN 15.7 g/dl (14.0-18.0); IMMATURE GRANULOCYTES 0.2 % (0.0-5.0); MEAN CELL VOLUME 102.1 fL CALC (80.0-100.0); MEAN CORPUSCULAR HGB 33.4 pG CALC (26.0-32.0); MEAN CORPUSCULAR HGB CONC 32.7 g/dL CAL (32.0-36.0); NEUT# 2.66 thou/uL (1.82-7.42); RED BLOOD COUNT 4.7 mill/uL (4.70-6.10); RED CELL DISTRI WIDTH 14.8 % (11.5-15.5)
[2020-01-19 08:55] LABS: ALBUMIN 3.7 g/dL (3.2-5.0); ALKALINE PHOSPHATASE 85 u/l (38-126); ANION GAP 10 (6-22 (CALC)); BILIRUBIN, TOTAL 0.4 mg/dL (0.0-1.4); CARBON DIOXIDE 32 mmol/l (22-30); CHLORIDE 100 mmol/l (95-108); CREATININE 1.4 mg/dL (0.7-1.3); GFR 52 ML/MIN (>=60 (CALC)); GFR FOR AFR.AMER. > 60 ML/MIN (>=60 (CALC)); POTASSIUM 3.5 mmol/l (3.5-5.1); SGOT/AST 24 u/l (19-48); SODIUM 139 mmol/l (137-146); TOTAL PROTEIN 6.3 g/dL (6.3-8.2)
[2020-01-19 08:57] LABS: BUN 44 mg/dL (8-23); BUN/CREATININE RATIO 31 (12-20 (CALC))
[2020-01-19 11:20] VITALS: BP 107/72
--- NOTE | 2020-01-19 12:00 | NUR ---
PT IS RELAXING IN BED WITH NO DISTRESS NOTED. IV SITE ISF REE FROM REDNESS OR EDEMA.
[2020-01-19] MEDS ORDERED: TRAMADOL HCL50 MG PO (12:35)
--- NOTE | 2020-01-19 15:00 | NUR ---
IV SITE DISCONTINUED CATHETER INTACT. NOR EDNESS OR EDEMA. DISCHARGE INSTRUCTIONS GIVEN AND VERBALIZED UNDERSTANDING. PT DROVE OWN VEHICLE. CONTINUE TO OSBERVE AND MONITOR.
--- NOTE | 2020-01-19 15:10 | NUR ---
Discharge instructions given. Patient verbalizes understanding of same. Discharged in stable condition via Wheelchair to Home with family. All belongings sent with pt.
== END 2020-01-19 15:00 | disposition home or self-care (01) ==
LOC: ED 13:40 → ED-I 18:00 → ED 18:17 → MS2 18:18
PROVIDERS: Nurse Practitioner; ADMIT Internal Medicine; ATTEND Internal Medicine
DX: R07.9 Chest pain, unspecified (principal); R06.02 Shortness of breath; N17.9 Acute kidney failure, unspecified; I12.9 Hypertensive chronic kidney disease with stage 1 through stage 4 chronic kidney disease, or unspecified chronic kidney disease; N18.9 Chronic kidney disease, unspecified; G89.4 Chronic pain syndrome; G62.9 Polyneuropathy, unspecified; F17.200 Nicotine dependence, unspecified, uncomplicated; Z86.718 Personal history of other venous thrombosis and embolism; Z95.5 Presence of coronary angioplasty implant and graft; Z95.0 Presence of cardiac pacemaker; Z21 Asymptomatic human immunodeficiency virus [HIV] infection status; Z20.828 Contact with and (suspected) exposure to other viral communicable diseases
CPT/HCPCS: A9540

== ENCOUNTER 2020-03-06 06:54 | Day surgery (SDC) | payer MEDICARE, MEDICAID ==
[~2020-03-06] VITALS: Ht 172.7 cm; Wt 93.4 kg
[~2020-03-06 06:54] MED LIST changes: +FUROSEMIDE20 MG PO; +HYDROCODONE/ACE1 TAB PO; +METOLAZONE2.5 MG PO; +TRAMADOL HCL50 MG PO
[2020-03-06] MEDS ORDERED: HYDROCODONE/ACE1 TAB PO (08:14)
[2020-03-06 09:41] VITALS: BP 123/80
[2020-03-06] MEDS ORDERED: LYRICA150 MG PO (09:50)
== END 2020-03-06 09:58 | disposition home or self-care (01) ==
LOC: ORM 06:54
PROVIDERS: ATTEND Anesthesiology Pain Medicine
DX: M54.5 Low back pain (principal); Z01.84 Encounter for antibody response examination

== ENCOUNTER 2020-05-26 | Emergency (ER) | payer MEDICARE, MEDICAID ==
[~2020-05-26] MED LIST changes: +LYRICA150 MG PO
[2020-05-26] MEDS ORDERED: LORTAB 1010 MG PO (08:29)
[2020-07-09] MEDS ORDERED: LORTAB 1010 MG PO (14:53)
== END 2020-05-26 08:40 | disposition home or self-care (01) ==
DX: M19.072 Primary osteoarthritis, left ankle and foot (principal); I10 Essential (primary) hypertension; F41.9 Anxiety disorder, unspecified; G62.9 Polyneuropathy, unspecified; F17.200 Nicotine dependence, unspecified, uncomplicated; Z21 Asymptomatic human immunodeficiency virus [HIV] infection status

== ENCOUNTER 2020-06-07 01:44 | Observation (INO) | payer MEDICARE, MEDICAID ==
[~2020-06-07] VITALS: Ht 172.7 cm; Wt 94.0 kg
[~2020-06-07 01:44] MED LIST changes: +LORTAB 1010 MG PO
[2020-06-07 02:27] LABS: IMMATURE GRANULOCYTES 0.2 % (0.0-5.0); MEAN CELL VOLUME 102.5 fL CALC (80.0-100.0); MEAN CORPUSCULAR HGB 32.9 pG CALC (26.0-32.0); MEAN CORPUSCULAR HGB CONC 32.1 g/dL CAL (32.0-36.0); NEUT# 3.67 thou/uL (1.82-7.42); RED BLOOD COUNT 4.32 mill/uL (4.70-6.10); RED CELL DISTRI WIDTH 19.5 % (11.5-15.5)
[2020-06-07 02:28] LABS: HEMATOCRIT 44.3 % (39.0-50.0); HEMOGLOBIN 14.2 g/dl (14.0-18.0)
[2020-06-07 02:48] LABS: PROTHROMBIN TIME 9.9 SECONDS (9.0-12.5)
[2020-06-07 04:21] LABS: URINE BILIRUBIN - DIPSTICK NEGATIVE (NEGATIVE); URINE BLOOD DIPSTICK NEGATIVE (NEGATIVE); URINE COLOR YELLOW; URINE GLUCOSE - DIPSTICK NEGATIVE (NEGATIVE); URINE KETONE NEGATIVE (NEGATIVE); URINE LEUK ESTERASE NEGATIVE (NEGATIVE); URINE PROTEIN - DIPSTICK NEGATIVE (NEG-TRACE); URINE SPECIFIC GRAVITY <=1.005; URINE UROBILINOGEN - DIPSTICK 0.2 E.U./dL (0.2)
[2020-06-07 04:26] LABS: URINE NITRITE - DIPSTICK NEGATIVE (Negative)
[2020-06-07 08:32] LABS: ALBUMIN 3.7 g/dL (3.2-5.0); BILIRUBIN, TOTAL 0.6 mg/dL (0.0-1.4); CREATININE 1.5 mg/dL (0.7-1.3); POTASSIUM 4.1 mmol/l (3.5-5.1); TOTAL PROTEIN 6.6 g/dL (6.3-8.2)
[2020-06-07 09:35] VITALS: BP 149/88
[2020-06-07] MEDS ORDERED: CYMBALTA60 MG PO (13:03)
[2020-06-07] MEDS ORDERED: DESCOVY 200-251 TAB PO (13:04)
[2020-06-07] MEDS ORDERED: TENORMIN PO (13:05)
[2020-06-07] MEDS ORDERED: LASIX40 MG PO (13:06)
[2020-06-07] MEDS ORDERED: QUETIAPINE FUMA25 MG PO (13:06)
[2020-06-07] MEDS ORDERED: HYDROCODONE/ACE1 TAB PO (13:07)
[2020-06-07] MEDS ORDERED: SONATA10 MG PO ×2 (13:10→13:46)
[2020-06-07] MEDS ORDERED: OMEPRAZOLE DR40 MG PO (13:12)
[2020-06-07] MEDS ORDERED: POT CHLORIDE10 ME5 PO (13:14)
[2020-06-07] MEDS ORDERED: ANORO ELLIPTA 61 AER IN (13:15)
[2020-06-07] MEDS ORDERED: XARELTO10 MG PO (13:16)
[2020-06-07] MEDS ORDERED: MONTELUKAST SOD10 MG PO (13:17)
[2020-06-07] MEDS ORDERED: PREGABALIN150 MG PO (13:18)
[2020-06-07] MEDS ORDERED: KLONOPIN0.5 M1 PO (13:55)
[2020-06-07 19:50] VITALS: BP 118/78
[2020-06-08] VITALS (7 sets, daily range): BP systolic 100–134; BP diastolic 67–95
[2020-06-08 05:39] LABS: HEMATOCRIT 40.8 % (39.0-50.0); HEMOGLOBIN 12.7 g/dl (14.0-18.0); MEAN CELL VOLUME 104.6 fL CALC (80.0-100.0); MEAN CORPUSCULAR HGB 32.6 pG CALC (26.0-32.0); MEAN CORPUSCULAR HGB CONC 31.1 g/dL CAL (32.0-36.0); RED BLOOD COUNT 3.9 mill/uL (4.70-6.10); RED CELL DISTRI WIDTH 19.8 % (11.5-15.5)
[2020-06-08 05:45] LABS: ANION GAP 7 (6-22 (CALC)); BUN 13 mg/dL (8-23); BUN/CREATININE RATIO 11 (12-20 (CALC)); CALCULATED LDLCHOLESTEROL 90 mg/dL (62-129 (CALC)); CARBON DIOXIDE 26 mmol/l (22-30); CHLORIDE 109 mmol/l (95-108); CHOLESTEROL HDL RATIO 3.4 (<4.4 (CALC)); CREATININE 1.1 mg/dL (0.7-1.3); GFR > 60 ML/MIN (>=60 (CALC)); GFR FOR AFR.AMER. > 60 ML/MIN (>=60 (CALC)); HDL CHOLESTEROL 45 mg/dL (>=40); POTASSIUM 4.5 mmol/l (3.5-5.1); SODIUM 137 mmol/l (137-146); TOTAL CHOLESTEROL 153 mg/dl (0-199); TOTAL TRIGLYCERIDES 86 mg/dl (30-149); VLDL CHOLESTROL 17 mg/dl (4-45 (CALC))
[2020-06-08 05:46] LABS: MAGNESIUM 1.8 mg/dL (1.6-2.3)
[2020-06-09 04:00] VITALS: BP 126/84
[2020-06-09 04:40] LABS: HEMOGLOBIN 13.2 g/dl (14.0-18.0); MEAN CELL VOLUME 104.5 fL CALC (80.0-100.0); MEAN CORPUSCULAR HGB 32.8 pG CALC (26.0-32.0); MEAN CORPUSCULAR HGB CONC 31.4 g/dL CAL (32.0-36.0); RED BLOOD COUNT 4.02 mill/uL (4.70-6.10); RED CELL DISTRI WIDTH 19.4 % (11.5-15.5)
[2020-06-09 05:03] LABS: ALBUMIN 3.2 g/dL (3.2-5.0); ALKALINE PHOSPHATASE 102 u/l (38-126); ANION GAP 7 (6-22 (CALC)); BILIRUBIN, TOTAL 0.7 mg/dL (0.0-1.4); BUN 14 mg/dL (8-23); BUN/CREATININE RATIO 11 (12-20 (CALC)); CARBON DIOXIDE 27 mmol/l (22-30); CHLORIDE 107 mmol/l (95-108); CREATININE 1.3 mg/dL (0.7-1.3); GFR 56 ML/MIN (>=60 (CALC)); GFR FOR AFR.AMER. > 60 ML/MIN (>=60 (CALC)); POTASSIUM 4.3 mmol/l (3.5-5.1); SGOT/AST 21 u/l (19-48); SODIUM 137 mmol/l (137-146); TOTAL PROTEIN 5.8 g/dL (6.3-8.2)
[2020-06-09 07:34] VITALS: BP 117/87
[2020-06-09 11:33] VITALS: BP 91/58
[2020-06-09 14:45] VITALS: BP 108/72
[2020-06-09 19:22] VITALS: BP 104/74
[2020-06-10] VITALS: BP 110/75
[2020-06-10 04:55] VITALS: BP 104/72
[2020-06-10 05:53] LABS: HEMATOCRIT 42.4 % (39.0-50.0); HEMOGLOBIN 13.4 g/dl (14.0-18.0); MEAN CELL VOLUME 104.7 fL CALC (80.0-100.0); MEAN CORPUSCULAR HGB 33.1 pG CALC (26.0-32.0); MEAN CORPUSCULAR HGB CONC 31.6 g/dL CAL (32.0-36.0); RED BLOOD COUNT 4.05 mill/uL (4.70-6.10); RED CELL DISTRI WIDTH 19.7 % (11.5-15.5)
[2020-06-10 06:03] LABS: ALBUMIN 3.1 g/dL (3.2-5.0); ALKALINE PHOSPHATASE 94 u/l (38-126); ANION GAP 10 (6-22 (CALC)); BILIRUBIN, TOTAL 0.5 mg/dL (0.0-1.4); BUN 18 mg/dL (8-23); BUN/CREATININE RATIO 16 (12-20 (CALC)); CARBON DIOXIDE 26 mmol/l (22-30); CHLORIDE 108 mmol/l (95-108); CREATININE 1.1 mg/dL (0.7-1.3); GFR > 60 ML/MIN (>=60 (CALC)); GFR FOR AFR.AMER. > 60 ML/MIN (>=60 (CALC)); POTASSIUM 4.1 mmol/l (3.5-5.1); SGOT/AST 22 u/l (19-48); SODIUM 140 mmol/l (137-146); TOTAL PROTEIN 5.7 g/dL (6.3-8.2)
[2020-06-10 07:27] VITALS: BP 112/77
[2020-06-10 10:38] VITALS: BP 125/88
[2020-07-09] MEDS ORDERED: LORTAB 1010 MG PO (14:53)
[2020-11-12] MEDS ORDERED: LORTAB 1010 MG PO (08:26)
== END 2020-06-10 15:47 ==
LOC: ED 01:44 → ED-I 06:45 → ED 07:32 → MS2 07:33
PROVIDERS: Emergency Medicine; Nurse Practitioner; Nurse Practitioner Family; ADMIT Internal Medicine; ATTEND Internal Medicine
PROC: 2W3RX1Z Immobilization of Left Lower Leg using Splint (ICD-10-PCS; principal; 2020-06-07)
DX: I95.9 Hypotension, unspecified (principal); S82.852A Displaced trimalleolar fracture of left lower leg, initial encounter for closed fracture; S09.90XA Unspecified injury of head, initial encounter; S01.112A Laceration without foreign body of left eyelid and periocular area, initial encounter; R42 Dizziness and giddiness; I12.9 Hypertensive chronic kidney disease with stage 1 through stage 4 chronic kidney disease, or unspecified chronic kidney disease; N18.9 Chronic kidney disease, unspecified; G89.4 Chronic pain syndrome; G62.9 Polyneuropathy, unspecified; F41.9 Anxiety disorder, unspecified; F17.210 Nicotine dependence, cigarettes, uncomplicated; W01.0XXA Fall on same level from slipping, tripping and stumbling without subsequent striking against object, initial encounter; Z21 Asymptomatic human immunodeficiency virus [HIV] infection status; Z79.891 Long term (current) use of opiate analgesic; Z95.0 Presence of cardiac pacemaker; Z86.718 Personal history of other venous thrombosis and embolism; Z20.822 Contact with and (suspected) exposure to COVID-19
CPT/HCPCS: G0378

== ENCOUNTER 2020-09-11 07:22 | Day surgery (SDC) | payer MEDICARE, MEDICAID ==
[~2020-09-11] VITALS: Ht 172.7 cm; Wt 86.2 kg
[~2020-09-11 07:22] MED LIST changes: +KLONOPIN0.5 M1 PO; +LASIX40 MG PO; +MONTELUKAST SOD10 MG PO; +OMEPRAZOLE DR40 MG PO; +POT CHLORIDE10 ME5 PO; +PREGABALIN150 MG PO; +TENORMIN PO
[2020-09-11] MEDS ORDERED: LORTAB 1010 MG PO (10:19)
[2020-09-11] MEDS ORDERED: PREGABALIN150 MG PO (10:21)
[2020-09-11 10:26] VITALS: BP 123/81
== END 2020-09-11 10:35 | disposition home or self-care (01) ==
LOC: ORM 07:22
PROVIDERS: ATTEND Anesthesiology Pain Medicine
DX: M54.5 Low back pain (principal); M12.9 Arthropathy, unspecified

== ENCOUNTER 2020-11-13 14:21 | Observation (INO) | payer MEDICARE, MEDICAID ==
[~2020-11-13] VITALS: Ht 172.7 cm; Wt 93.0 kg
--- NOTE | 2020-11-13 14:30 | NUR ---
PT TO ROOM VIA WHEELCHAIR.
[2020-11-13 15:10] VITALS: BP 87/57
[2020-11-13 15:15] VITALS: BP 90/61
[2020-11-13 15:53] LABS: IMMATURE GRANULOCYTES 0.6 % (0.0-5.0); MEAN CORPUSCULAR HGB 35.9 pG CALC (26.0-32.0); MEAN CORPUSCULAR HGB CONC 33.3 g/dL CAL (32.0-36.0); NEUT# 4.27 thou/uL (1.82-7.42); RED BLOOD COUNT 3.96 mill/uL (4.70-6.10); RED CELL DISTRI WIDTH 18.8 % (11.5-15.5)
[2020-11-13 16:20] LABS: HEMATOCRIT 42.6 % (39.0-50.0); HEMOGLOBIN 14.2 g/dl (14.0-18.0); MEAN CELL VOLUME 107.6 fL CALC (80.0-100.0)
[2020-11-13 16:29] LABS: ALBUMIN 4.2 g/dL (3.2-5.0); BILIRUBIN, TOTAL 0.8 mg/dL (0.0-1.4); TOTAL PROTEIN 7.5 g/dL (6.3-8.2)
[2020-11-13 16:34] LABS: POTASSIUM 3.7 mmol/l (3.5-5.1)
--- NOTE | 2020-11-13 17:18 | NUR ---
VERBAL ADMISSION ORDERS RECEIVED FROM DR BELLAMY AND FAXED TO [facility].
[2020-11-13 18:10] LABS: URINE BILIRUBIN - DIPSTICK NEGATIVE (NEGATIVE); URINE BLOOD DIPSTICK NEGATIVE (NEGATIVE); URINE COLOR YELLOW; URINE GLUCOSE - DIPSTICK NEGATIVE (NEGATIVE); URINE KETONE NEGATIVE (NEGATIVE); URINE LEUK ESTERASE NEGATIVE (NEGATIVE); URINE PROTEIN - DIPSTICK NEGATIVE (NEG-TRACE); URINE SPECIFIC GRAVITY 1.015; URINE UROBILINOGEN - DIPSTICK 0.2 E.U./dL (0.2)
[2020-11-13 18:13] LABS: URINE NITRITE - DIPSTICK NEGATIVE (Negative)
[2020-11-13 18:31] VITALS: BP 77/52
--- NOTE | 2020-11-13 18:33 | NUR ---
REPORTED GIVEN TO YAMILKA NIX
--- NOTE | 2020-11-13 19:45 | NUR ---
PT RESTING AWARE OF PLANNED ADMISSION, NO NEW COMPLAINTS, OFFERED
--- NOTE | 2020-11-13 20:20 | NUR ---
PT TRASNFERRED TO M E SURG VIA WHEELCHAIR FOR ADMISSION RECIEVING NURSE AT BEDSIDE ON ARRIVZL, ALL BELONGINGS SENT WITH PT.
--- NOTE | 2020-11-13 20:24 | NUR ---
PT ARRIVED TO MS2 VIA WHEELCHAIR ACCOMPANIED BY WREATH MACHINE OPERATOR. PT ALERT AND ORIENTED X3, FLAT AFFECT, ORIENTED PT TO ROOM AND CALL LIGHT DISCUSSED POC, PT VERBALIZED UNDERSTANDING. PT STATES HE STILL HAS PAIN 8/10 TO HIS LOWER BACK AND BLE, WILL NOTIFY MD FOR ORDERS. SKIN INTACT. VSS AT THIS TIME. ADMISSION ASSESSMENT COMPLETED. CALL LIGHT IN REACH,CONTINUE TO MONITOR.
[2020-11-13 20:25] VITALS: BP 103/72
--- NOTE | 2020-11-13 21:56 | NUR ---
PT RESTING IN BED, WATCHING TV, DISCUSSED WITH PT REGARDING HOME MEDICATIONS, PT AGREES. PT MEDICATED PER MAR, PT DID NOT HAVE ANY DIFFICULTIES SWALLOWING MEDICATIONS WHOLE WITH WATER. CALL LIGHT IN REACH, PT VOICES NO NEEDS OR COMPLAINTS AT THIS TIME. CALL LIGHT IN REACH,CONTINUE TO MONITOR.
[2020-11-14] VITALS (8 sets, daily range): BP systolic 68–108; BP diastolic 43–78
--- NOTE | 2020-11-14 | NUR ---
PT RESTING IN BED, VITALS OBTAINED, LOW BP, PT ASYMPTOMATIC VOICES NO NEEDS OR COMPLAINTS AT THIS TIME, POSITIONED PT IN [place], TOLERATING WELL, EMERGENCY MANAGEMENT SPECIALIST TO RETURN TO RE-EVALUATE BP. CALL LIGHT IN REACH,CONTINUE TO MONITOR.
--- NOTE | 2020-11-14 00:59 | NUR ---
PT RESTING IN BED, EASILY AROUSED TO VERBAL STIMULI, RECHECKED BP, 88/60 AT THIS TIME, PT STABLE, VOICES NO NEEDS OR COMPLAINTS AT THIS TIME, CALL LIGHT IN REACH,CONTINUE TO MONITOR.
--- NOTE | 2020-11-14 04:37 | NUR ---
PT RESTING IN BED, NO SIGNS OF DISTRESS NOTED, RESP EVEN AND UNLABORED. PT STILL AWAKE, PT C/O PAIN TO LOWER BACK AND BLE, PT MEDICATED PER MAR. NO OTHER NEEDS OR COMPLAINTS MADE AT THIS TIME. CALL LIGHT IN REACH,CONTINUE TO MONITOR.
[2020-11-14 05:58] LABS: HEMATOCRIT 40.9 % (39.0-50.0); HEMOGLOBIN 13.6 g/dl (14.0-18.0); IMMATURE GRANULOCYTES 0.2 % (0.0-5.0); MEAN CELL VOLUME 109.1 fL CALC (80.0-100.0); MEAN CORPUSCULAR HGB 36.3 pG CALC (26.0-32.0); MEAN CORPUSCULAR HGB CONC 33.3 g/dL CAL (32.0-36.0); NEUT# 2.65 thou/uL (1.82-7.42); RED BLOOD COUNT 3.75 mill/uL (4.70-6.10); RED CELL DISTRI WIDTH 18.9 % (11.5-15.5)
[2020-11-14 06:00] LABS: MAGNESIUM 1.5 mg/dL (1.6-2.3); POTASSIUM 3.6 mmol/l (3.5-5.1)
--- NOTE | 2020-11-14 08:15 | NUR ---
BEDSIDE REPORT RECEIVED AT CHANGE OF SHIFT. PT UP IN CHAIR AWAITING BREAKFAST, NO COMPLAINTS OTHER THAN PAIN PILL REQUEST, VERBALIZED TO PT NOT DUE UNTIL 1030 AM. HE AGREED. ASSESSMENT PERFORMED WILL CONTINUE TO MONITOR.
--- NOTE | 2020-11-14 12:13 | NUR ---
PT HAS C/O BOUTS OF CHOKING WHEN EATING. Clara ROPER APPROVED.
--- NOTE | 2020-11-14 20:00 | NUR ---
Patient is alert and oriented, able to make needs known. Respirations even and unlabored on RA. Hr reg. No telemetry in place. VAD #20 LFA infusing NS@ 75ml/hr. No complaints verbalized at this time. Assessment completed and charted. Bed in low position. Call light within reach.
--- NOTE | 2020-11-15 | NUR ---
Resting quietly. No acute distress observed. IVF infusing.
--- NOTE | 2020-11-15 03:08 | NUR ---
PATIENT RESTING WITH EYES CLOSED. NO ACUTE DISTRESS OBSERVED.
[2020-11-15 04:00] VITALS: BP 97/69
--- NOTE | 2020-11-15 04:39 | NUR ---
NO CHANGES NOTED.
[2020-11-15 05:23] LABS: HEMATOCRIT 39.9 % (39.0-50.0); MEAN CELL VOLUME 109.9 fL CALC (80.0-100.0); MEAN CORPUSCULAR HGB 35.8 pG CALC (26.0-32.0); MEAN CORPUSCULAR HGB CONC 32.6 g/dL CAL (32.0-36.0); RED BLOOD COUNT 3.63 mill/uL (4.70-6.10); RED CELL DISTRI WIDTH 19.2 % (11.5-15.5)
[2020-11-15 05:40] LABS: ANION GAP 6 (6-22 (CALC)); BUN 20 mg/dL (8-23); BUN/CREATININE RATIO 15 (12-20 (CALC)); CARBON DIOXIDE 27 mmol/l (22-30); CHLORIDE 107 mmol/l (95-108); CREATININE 1.4 mg/dL (0.7-1.3); GFR 51 ML/MIN (>=60 (CALC)); GFR FOR AFR.AMER. > 60 ML/MIN (>=60 (CALC)); POTASSIUM 3.8 mmol/l (3.5-5.1); SODIUM 136 mmol/l (137-146)
[2020-11-15 05:44] LABS: MAGNESIUM 2.5 mg/dL (1.6-2.3)
[2020-11-15 08:30] VITALS: BP 116/83
--- NOTE | 2020-11-15 08:30 | NUR ---
BEDSIDE REPORT RECEIVED AT CHANGE OF SHIFT. PT IN CHAIR EATING BREAKFAST. ASSESSMENT PERFORMED. PAIN LEVEL 8/10, PRN ADMIN. WILL CONTINURE TO MONITOR.
[2020-11-15 08:37] VITALS: BP 116/83
[2020-11-15] MEDS ORDERED: LASIX20 MG PO (09:13)
--- NOTE | 2020-11-15 09:38 | NUR ---
Pt was without complaints, stated he hopes to go home today. He was OOB in chair. LE AROM exercises performed 2x10 reps each. Pt ambulated in room 2x 80' holding IV pole with CGA, no LOB noted. Standing balance activities performed with CGA and mild LOB only 1x which pt was able to self correct. Gait belt and non skid socks on during treatment. [facility] 18. Pt left with bed tray infront of him, call winston in reach.
--- NOTE | 2020-11-15 13:12 | NUR ---
Discharge instructions given. Patient verbalizes understanding of same. Discharged in stable condition via Wheelchair to Home with *Other. All belongings sent with pt.
== END 2020-11-15 14:34 | disposition home or self-care (01) ==
LOC: ED 14:21 → ED-I 17:05 → ED 17:14 → MS2 17:15
PROVIDERS: Emergency Medicine; Nurse Practitioner; ADMIT Internal Medicine; ATTEND Internal Medicine
DX: N17.9 Acute kidney failure, unspecified (principal); E86.0 Dehydration; I95.9 Hypotension, unspecified; I12.9 Hypertensive chronic kidney disease with stage 1 through stage 4 chronic kidney disease, or unspecified chronic kidney disease; N18.30 Chronic kidney disease, stage 3 unspecified; G62.9 Polyneuropathy, unspecified; F41.9 Anxiety disorder, unspecified; R13.10 Dysphagia, unspecified; M54.9 Dorsalgia, unspecified; G89.29 Other chronic pain; F17.210 Nicotine dependence, cigarettes, uncomplicated; Z95.0 Presence of cardiac pacemaker; Z86.718 Personal history of other venous thrombosis and embolism; Z21 Asymptomatic human immunodeficiency virus [HIV] infection status; Z79.01 Long term (current) use of anticoagulants; Z20.822 Contact with and (suspected) exposure to COVID-19
CPT/HCPCS: J3475

== ENCOUNTER 2021-02-12 07:56 | Day surgery (SDC) | payer MEDICARE, MEDICAID ==
[~2021-02-12] VITALS: Ht 172.7 cm; Wt 90.7 kg
[~2021-02-12 07:56] MED LIST changes: +LASIX20 MG PO
[2021-02-12] MEDS ORDERED: LORTAB 1010 MG PO (10:57)
[2021-02-12 11:23] VITALS: BP 137/72
== END 2021-02-12 11:35 | disposition home or self-care (01) ==
LOC: ORM 07:56
PROVIDERS: ATTEND Anesthesiology Pain Medicine
DX: M54.59 Other low back pain (principal); M46.1 Sacroiliitis, not elsewhere classified

== ENCOUNTER 2021-03-11 13:26 | Emergency (ER) | payer MEDICARE, MEDICAID ==
[~2021-03-11] VITALS: Ht 172.7 cm; Wt 94.1 kg
[2021-03-11] MEDS ORDERED: DICLOFENAC SODIUM1 % TOP (15:10)
[2021-03-11] MEDS ORDERED: SINGULAIR10 MG PO (15:11)
[2021-03-11 15:17] LABS: HEMATOCRIT 49.1 % (39.0-50.0); HEMOGLOBIN 16.1 g/dl (14.0-18.0); IMMATURE GRANULOCYTES 0.4 % (0.0-5.0); MEAN CELL VOLUME 108.1 fL CALC (80.0-100.0); MEAN CORPUSCULAR HGB 35.5 pG CALC (26.0-32.0); MEAN CORPUSCULAR HGB CONC 32.8 g/dL CAL (32.0-36.0); NEUT# 4.48 thou/uL (1.82-7.42); RED BLOOD COUNT 4.54 mill/uL (4.70-6.10); RED CELL DISTRI WIDTH 18.7 % (11.5-15.5)
[2021-03-11 15:27] LABS: ALBUMIN 4.5 g/dL (3.2-5.0); ALKALINE PHOSPHATASE 161 u/l (38-126); ANION GAP 12 (6-22 (CALC)); BILIRUBIN, TOTAL 0.8 mg/dL (0.0-1.4); BUN 17 mg/dL (8-23); BUN/CREATININE RATIO 14 (12-20 (CALC)); CARBON DIOXIDE 32 mmol/l (22-30); CHLORIDE 97 mmol/l (95-108); CREATININE 1.2 mg/dL (0.7-1.3); GFR > 60 ML/MIN (>=60 (CALC)); GFR FOR AFR.AMER. > 60 ML/MIN (>=60 (CALC)); POTASSIUM 4.3 mmol/l (3.5-5.1); SGOT/AST 24 u/l (19-48); SODIUM 137 mmol/l (137-146); TOTAL PROTEIN 8.2 g/dL (6.3-8.2)
[2021-03-11 15:28] LABS: INTERNATIONAL NORMALIZED RATIO 0.9 RATIO (0.7-1.3); PROTHROMBIN TIME 9.7 SECONDS (9.0-12.5)
[2021-03-11 20:20] VITALS: BP 140/82
== END 2021-03-11 19:27 | disposition short-term general hospital (02) ==
LOC: ED 13:26
PROVIDERS: Emergency Medicine
DX: I82.402 Acute embolism and thrombosis of unspecified deep veins of left lower extremity (principal); I10 Essential (primary) hypertension; E11.40 Type 2 diabetes mellitus with diabetic neuropathy, unspecified; F41.9 Anxiety disorder, unspecified; F17.210 Nicotine dependence, cigarettes, uncomplicated; Z21 Asymptomatic human immunodeficiency virus [HIV] infection status; Z86.718 Personal history of other venous thrombosis and embolism; Z79.01 Long term (current) use of anticoagulants; Z95.0 Presence of cardiac pacemaker; Z20.822 Contact with and (suspected) exposure to COVID-19; I82.5Y3 Chronic embolism and thrombosis of unspecified deep veins of proximal lower extremity, bilateral; I87.2 Venous insufficiency (chronic) (peripheral)
CPT/HCPCS: Q9967

== ENCOUNTER 2021-07-27 13:39 | Emergency (ER) | payer MEDICARE, MEDICAID ==
[~2021-07-27] VITALS: Ht 172.7 cm; Wt 95.4 kg
[~2021-07-27 13:39] MED LIST changes: +DICLOFENAC SODIUM1 % TOP; +SINGULAIR10 MG PO
[2021-07-27 14:26] VITALS: BP 112/60
[2021-07-27] MEDS ORDERED: COLCHICINE0.6 M2 PO (15:43)
[2021-07-27] MEDS ORDERED: INDOMETHACIN50 MG PO (15:43)
== END 2021-07-27 16:15 | disposition home or self-care (01) ==
LOC: ED 13:39
DX: M10.072 Idiopathic gout, left ankle and foot (principal); I10 Essential (primary) hypertension; G62.9 Polyneuropathy, unspecified; F41.9 Anxiety disorder, unspecified; F17.210 Nicotine dependence, cigarettes, uncomplicated; Z21 Asymptomatic human immunodeficiency virus [HIV] infection status; Z95.0 Presence of cardiac pacemaker; Z86.718 Personal history of other venous thrombosis and embolism

== ENCOUNTER 2021-08-05 13:34 | Emergency (ER) | payer MEDICARE, MEDICAID ==
[2021-08-05] VITALS (12 sets, daily range): BP systolic 131–154; BP diastolic 82–104
[~2021-08-05] VITALS: Ht 172.7 cm; Wt 100.0 kg
[~2021-08-05 13:34] MED LIST changes: +COLCHICINE0.6 M2 PO; +INDOMETHACIN50 MG PO
[2021-08-05 14:10] LABS: HEMATOCRIT 42.6 % (39.0-50.0); HEMOGLOBIN 14.2 g/dl (14.0-18.0); IMMATURE GRANULOCYTES 0.1 % (0.0-5.0); MEAN CELL VOLUME 102.4 fL CALC (80.0-100.0); MEAN CORPUSCULAR HGB 34.1 pG CALC (26.0-32.0); MEAN CORPUSCULAR HGB CONC 33.3 g/dL CAL (32.0-36.0); NEUT# 2.57 thou/uL (1.82-7.42); RED BLOOD COUNT 4.16 mill/uL (4.70-6.10); RED CELL DISTRI WIDTH 18.3 % (11.5-15.5)
[2021-08-05 14:27] LABS: ALKALINE PHOSPHATASE 80 u/l (38-126); ANION GAP 11 (6-22 (CALC)); BILIRUBIN, TOTAL 0.9 mg/dL (0.0-1.4); BUN 14 mg/dL (8-23); BUN/CREATININE RATIO 13 (12-20 (CALC)); CARBON DIOXIDE 21 mmol/l (22-30); CHLORIDE 109 mmol/l (95-108); CREATININE 1.1 mg/dL (0.7-1.3); GFR FOR AFR.AMER. > 60 ML/MIN (>=60 (CALC)); GFR OTHER RACES > 60 ML/MIN (>=60 (CALC)); LIPASE 198 u/l (23-300); POTASSIUM 4.4 mmol/l (3.5-5.1); SGOT/AST 48 u/l (19-48); SODIUM 136 mmol/l (137-146); TOTAL PROTEIN 7.8 g/dL (6.3-8.2)
[2021-08-05 14:42] LABS: PROTHROMBIN TIME 10.4 SECONDS (9.0-12.5)
[2021-08-05] MEDS ORDERED: PROTONIX40 M2 PO (16:26)
[2021-08-05] MEDS ORDERED: TIVICAY50 MG PO (20:31)
[2021-08-05] MEDS ORDERED: CLONAZEPAM0.5 M1 PO (20:32)
[2021-08-05] MEDS ORDERED: VITAMIN D2000 UNIT PO (20:32)
[2021-08-05] MEDS ORDERED: LEVOTHYROXIN88 MC1 PO (20:33)
[2021-08-05] MEDS ORDERED: LASIX 40 MG TAB40 MG PO (20:33)
[2021-08-05] MEDS ORDERED: OXYCOD-APAP1 TA1 PO (20:34)
[2021-08-05] MEDS ORDERED: XARELTO15 MG PO (20:34)
[2021-08-05] MEDS ORDERED: PREGABALIN100 MG PO (20:34)
[2021-08-05] MEDS ORDERED: TIZANIDINE4 MG PO (20:35)
[2021-08-05] MEDS ORDERED: ENOXAPARIN (20:35)
[2021-08-05] MEDS ORDERED: ZOLPIDEM TARTRA10 MG PO (20:35)
[2021-08-06] MEDS ORDERED: TENORMIN PO (07:48)
[2021-08-06] MEDS ORDERED: OMEPRAZOLE DR40 MG PO (07:53)
== END 2021-08-05 16:47 | disposition home or self-care (01) ==
LOC: ED 13:34
PROVIDERS: Nurse Practitioner
DX: K92.1 Melena (principal); R10.32 Left lower quadrant pain
CPT/HCPCS: Q9967; S0164

== ENCOUNTER 2021-08-05 19:34 | Observation (INO) | payer MEDICARE, MEDICAID ==
[~2021-08-05] VITALS: Ht 172.7 cm; Wt 98.0 kg
[~2021-08-05 19:34] MED LIST changes: +PROTONIX40 M2 PO
[2021-08-05] MEDS ORDERED: TIVICAY50 MG PO (20:31)
[2021-08-05] MEDS ORDERED: CLONAZEPAM0.5 M1 PO (20:32)
[2021-08-05] MEDS ORDERED: VITAMIN D2000 UNIT PO (20:32)
[2021-08-05] MEDS ORDERED: LASIX 40 MG TAB40 MG PO (20:33)
[2021-08-05] MEDS ORDERED: LEVOTHYROXIN88 MC1 PO (20:33)
[2021-08-05] MEDS ORDERED: XARELTO15 MG PO (20:34)
[2021-08-05] MEDS ORDERED: OXYCOD-APAP1 TA1 PO (20:34)
[2021-08-05] MEDS ORDERED: PREGABALIN100 MG PO (20:34)
[2021-08-05] MEDS ORDERED: TIZANIDINE4 MG PO (20:35)
[2021-08-05] MEDS ORDERED: ZOLPIDEM TARTRA10 MG PO (20:35)
[2021-08-05] MEDS ORDERED: ENOXAPARIN (20:35)
[2021-08-05 22:24] VITALS: BP 141/93
[2021-08-06] VITALS (7 sets, daily range): BP systolic 112–147; BP diastolic 70–92
[2021-08-06 06:40] LABS: HEMATOCRIT 40.6 % (39.0-50.0); HEMOGLOBIN 13.4 g/dl (14.0-18.0); RED BLOOD COUNT 3.94 mill/uL (4.70-6.10); RED CELL DISTRI WIDTH 18.3 % (11.5-15.5)
[2021-08-06 06:42] LABS: ANION GAP 9 (6-22 (CALC)); BUN 16 mg/dL (8-23); BUN/CREATININE RATIO 14 (12-20 (CALC)); CARBON DIOXIDE 24 mmol/l (22-30); CHLORIDE 112 mmol/l (95-108); CREATININE 1.2 mg/dL (0.7-1.3); GFR FOR AFR.AMER. > 60 ML/MIN (>=60 (CALC)); GFR OTHER RACES > 60 ML/MIN (>=60 (CALC)); POTASSIUM 4.3 mmol/l (3.5-5.1); SODIUM 140 mmol/l (137-146)
[2021-08-06] MEDS ORDERED: TENORMIN PO (07:48)
[2021-08-06] MEDS ORDERED: OMEPRAZOLE DR40 MG PO (07:53)
[2021-08-07] VITALS (12 sets, daily range): BP systolic 117–141; BP diastolic 79–95
[2021-08-07 05:51] LABS: HEMATOCRIT 41.9 % (39.0-50.0); HEMOGLOBIN 13.7 g/dl (14.0-18.0); MEAN CELL VOLUME 103.7 fL CALC (80.0-100.0); MEAN CORPUSCULAR HGB 33.9 pG CALC (26.0-32.0); MEAN CORPUSCULAR HGB CONC 32.7 g/dL CAL (32.0-36.0); RED BLOOD COUNT 4.04 mill/uL (4.70-6.10); RED CELL DISTRI WIDTH 18.6 % (11.5-15.5)
[2021-08-07 06:02] LABS: ANION GAP 8 (6-22 (CALC)); BUN 16 mg/dL (8-23); BUN/CREATININE RATIO 16 (12-20 (CALC)); CARBON DIOXIDE 22 mmol/l (22-30); CHLORIDE 115 mmol/l (95-108); GFR FOR AFR.AMER. > 60 ML/MIN (>=60 (CALC)); GFR OTHER RACES > 60 ML/MIN (>=60 (CALC)); POTASSIUM 4.5 mmol/l (3.5-5.1); SODIUM 140 mmol/l (137-146)
[2021-08-08 04:10] VITALS: BP 153/101
[2021-08-08 05:36] VITALS: BP 153/101
[2021-08-08 05:44] LABS: HEMATOCRIT 40.9 % (39.0-50.0); HEMOGLOBIN 13.3 g/dl (14.0-18.0); MEAN CELL VOLUME 103.8 fL CALC (80.0-100.0); MEAN CORPUSCULAR HGB 33.8 pG CALC (26.0-32.0); MEAN CORPUSCULAR HGB CONC 32.5 g/dL CAL (32.0-36.0); RED BLOOD COUNT 3.94 mill/uL (4.70-6.10); RED CELL DISTRI WIDTH 18.6 % (11.5-15.5)
[2021-08-08 06:05] LABS: ANION GAP 8 (6-22 (CALC)); BUN 13 mg/dL (8-23); BUN/CREATININE RATIO 12 (12-20 (CALC)); CARBON DIOXIDE 26 mmol/l (22-30); CHLORIDE 110 mmol/l (95-108); GFR FOR AFR.AMER. > 60 ML/MIN (>=60 (CALC)); GFR OTHER RACES > 60 ML/MIN (>=60 (CALC)); POTASSIUM 4.6 mmol/l (3.5-5.1); SODIUM 140 mmol/l (137-146)
[2021-08-08 07:10] VITALS: BP 146/100
[2021-08-08 10:29] VITALS: BP 168/108
[2021-08-08 10:30] VITALS: BP 168/108
== END 2021-08-08 11:45 | disposition home or self-care (01) ==
LOC: ED 19:34 → ED-I 20:02 → ED 20:02 → ED-I 20:03 → ED 20:04 → MS2 20:04
PROVIDERS: ADMIT Internal Medicine; ATTEND Internal Medicine
PROC: 0DJD8ZZ Inspection of Lower Intestinal Tract, Via Natural or Artificial Opening Endoscopic (ICD-10-PCS; principal; 2021-08-08)
PROC: 0DB48ZX Excision of Esophagogastric Junction, Via Natural or Artificial Opening Endoscopic, Diagnostic (ICD-10-PCS; 2021-08-08)
PROC: 0DB68ZX Excision of Stomach, Via Natural or Artificial Opening Endoscopic, Diagnostic (ICD-10-PCS; 2021-08-08)
DX: K92.1 Melena (principal); K57.30 Diverticulosis of large intestine without perforation or abscess without bleeding; K64.8 Other hemorrhoids; K29.50 Unspecified chronic gastritis without bleeding; K20.90 Esophagitis, unspecified without bleeding; K44.9 Diaphragmatic hernia without obstruction or gangrene; I13.0 Hypertensive heart and chronic kidney disease with heart failure and stage 1 through stage 4 chronic kidney disease, or unspecified chronic kidney disease; I50.9 Heart failure, unspecified; N18.9 Chronic kidney disease, unspecified; G89.29 Other chronic pain; F41.9 Anxiety disorder, unspecified; G62.9 Polyneuropathy, unspecified; F17.200 Nicotine dependence, unspecified, uncomplicated; Z21 Asymptomatic human immunodeficiency virus [HIV] infection status; Z86.718 Personal history of other venous thrombosis and embolism; Z95.0 Presence of cardiac pacemaker; Z95.828 Presence of other vascular implants and grafts; Z79.01 Long term (current) use of anticoagulants; Z20.822 Contact with and (suspected) exposure to COVID-19
CPT/HCPCS: J1650; Q9967; S0164

== ENCOUNTER 2021-10-17 05:06 | Emergency (ER) | payer MEDICARE, MEDICAID ==
[~2021-10-17] VITALS: Ht 172.7 cm; Wt 100.0 kg
[~2021-10-17 05:06] MED LIST changes: +CLONAZEPAM0.5 M1 PO; +ENOXAPARIN; +LASIX 40 MG TAB40 MG PO; +PREGABALIN100 MG PO; +TIZANIDINE4 MG PO; +VITAMIN D2000 UNIT PO; +XARELTO15 MG PO; +ZOLPIDEM TARTRA10 MG PO
[2021-10-17 05:12] VITALS: BP 117/82
[2021-10-17 05:15] VITALS: BP 113/78
[2021-10-17 05:30] VITALS: BP 114/70
[2021-10-17 05:58] LABS: HEMATOCRIT 39.9 % (39.0-50.0); HEMOGLOBIN 13.5 g/dl (14.0-18.0); IMMATURE GRANULOCYTES 0.3 % (0.0-5.0); MEAN CELL VOLUME 101.5 fL CALC (80.0-100.0); MEAN CORPUSCULAR HGB 34.4 pG CALC (26.0-32.0); MEAN CORPUSCULAR HGB CONC 33.8 g/dL CAL (32.0-36.0); NEUT# 1.81 thou/uL (1.82-7.42); RED BLOOD COUNT 3.93 mill/uL (4.70-6.10); RED CELL DISTRI WIDTH 18.4 % (11.5-15.5)
[2021-10-17 06:21] LABS: ALBUMIN 3.8 g/dL (3.2-5.0); BILIRUBIN, TOTAL 0.3 mg/dL (0.0-1.4); CREATININE 1.7 mg/dL (0.7-1.3); POTASSIUM 4.4 mmol/l (3.5-5.1); TOTAL PROTEIN 6.9 g/dL (6.3-8.2)
[2021-10-17] MEDS ORDERED: ALLOPURINOL100 MG PO (06:49)
[2021-10-17] MEDS ORDERED: PREDNISONE50 MG PO (06:49)
[2021-10-17 06:51] VITALS: BP 114/70
== END 2021-10-17 07:12 | disposition home or self-care (01) ==
LOC: ED 05:06
PROVIDERS: Family Medicine
DX: M10.072 Idiopathic gout, left ankle and foot (principal); I10 Essential (primary) hypertension; F41.9 Anxiety disorder, unspecified; G62.9 Polyneuropathy, unspecified; F17.210 Nicotine dependence, cigarettes, uncomplicated; Z86.718 Personal history of other venous thrombosis and embolism; Z21 Asymptomatic human immunodeficiency virus [HIV] infection status

== ENCOUNTER 2021-11-12 08:50 | Emergency (ER) | payer MEDICARE, MEDICAID ==
[2021-11-12] VITALS (13 sets, daily range): BP systolic 138–175; BP diastolic 93–108
[~2021-11-12] VITALS: Ht 172.7 cm; Wt 90.9 kg
[~2021-11-12 08:50] MED LIST changes: +ALLOPURINOL100 MG PO
[2021-11-12 09:25] LABS: HEMATOCRIT 44.8 % (39.0-50.0); HEMOGLOBIN 14.6 g/dl (14.0-18.0); IMMATURE GRANULOCYTES 0.3 % (0.0-5.0); MEAN CELL VOLUME 103.9 fL CALC (80.0-100.0); MEAN CORPUSCULAR HGB 33.9 pG CALC (26.0-32.0); MEAN CORPUSCULAR HGB CONC 32.6 g/dL CAL (32.0-36.0); NEUT# 2.77 thou/uL (1.82-7.42); RED BLOOD COUNT 4.31 mill/uL (4.70-6.10)
[2021-11-12 09:41] LABS: ALBUMIN 4.2 g/dL (3.2-5.0); AMYLASE 79 u/l (30-110); BUN 14 mg/dL (8-23); BUN/CREATININE RATIO 13 (12-20 (CALC)); CHLORIDE 106 mmol/l (95-108); CREATININE 1.1 mg/dL (0.7-1.3); ETHYL ALCOHOL 0 mg/dl (0-30); GFR FOR AFR.AMER. > 60 ML/MIN (>=60 (CALC)); GFR OTHER RACES > 60 ML/MIN (>=60 (CALC)); LIPASE 125 u/l (23-300); POTASSIUM 4.4 mmol/l (3.5-5.1); SGOT/AST 39 u/l (19-48); SODIUM 141 mmol/l (137-146)
[2021-11-12 09:44] LABS: INTERNATIONAL NORMALIZED RATIO 1.3 RATIO (0.7-1.3)
[2021-11-12 09:54] LABS: ALKALINE PHOSPHATASE 147 u/l (38-126); ANION GAP 13 (6-22 (CALC)); BILIRUBIN, TOTAL 0.6 mg/dL (0.0-1.4); CARBON DIOXIDE 26 mmol/l (22-30); MYOGLOBIN 41 ng/mL (0 - 121)
[2021-11-12 11:15] LABS: URINE BILIRUBIN - DIPSTICK NEGATIVE (NEGATIVE); URINE BLOOD DIPSTICK NEGATIVE (NEGATIVE); URINE COLOR YELLOW; URINE GLUCOSE - DIPSTICK NEGATIVE (NEGATIVE); URINE KETONE NEGATIVE (NEGATIVE); URINE LEUK ESTERASE NEGATIVE (NEGATIVE); URINE PROTEIN - DIPSTICK 30 mg/dL (NEG-TRACE)
[2021-11-12 11:17] LABS: URINE NITRITE - DIPSTICK NEGATIVE (Negative)
[2021-11-12 11:35] LABS: URINE RBC 0-2 RBC/hpf (0-5); URINE WBC 0-2 WBC/hpf (0-5)
[2021-11-12 11:36] LABS: URINE HYALINE CAST FEW lpf (NONE-RARE)
[2021-11-12] MEDS ORDERED: ANUCORT-HC25 MG RE (13:50)
== END 2021-11-12 12:42 | disposition home or self-care (01) ==
LOC: ED 08:50
PROVIDERS: Emergency Medicine
DX: K64.9 Unspecified hemorrhoids (principal); I10 Essential (primary) hypertension; G62.9 Polyneuropathy, unspecified; F41.9 Anxiety disorder, unspecified; F17.200 Nicotine dependence, unspecified, uncomplicated; Z95.0 Presence of cardiac pacemaker; Z21 Asymptomatic human immunodeficiency virus [HIV] infection status; Z79.899 Other long term (current) drug therapy; Z86.718 Personal history of other venous thrombosis and embolism
CPT/HCPCS: Q9967

== ENCOUNTER 2022-02-01 15:28 | Inpatient (IN) | payer MEDICARE, MEDICAID ==
[~2022-02-01] VITALS: Ht 172.7 cm; Wt 94.0 kg
[2022-02-01] VITALS (31 sets, daily range): BP systolic 75–183; BP diastolic 35–145
[~2022-02-01 15:28] MED LIST changes: +ANUCORT-HC25 MG RE
[2022-02-01 16:09] LABS: IMMATURE GRANULOCYTES 0.2 % (0.0-5.0); MEAN CORPUSCULAR HGB 32.6 pG CALC (26.0-32.0); MEAN CORPUSCULAR HGB CONC 33.6 g/dL CAL (32.0-36.0); NEUT# 5.25 thou/uL (1.82-7.42); RED BLOOD COUNT 3.13 mill/uL (4.70-6.10); RED CELL DISTRI WIDTH 16.9 % (11.5-15.5)
[2022-02-01 16:11] LABS: HEMATOCRIT 30.4 % (39.0-50.0); HEMOGLOBIN 10.2 g/dl (14.0-18.0); MEAN CELL VOLUME 97.1 fL CALC (80.0-100.0)
[2022-02-01 16:27] LABS: ALBUMIN 4.1 g/dL (3.2-5.0); CHLORIDE 95 mmol/l (95-108); SGOT/AST 62 u/l (19-48); TOTAL PROTEIN 7.8 g/dL (6.3-8.2)
[2022-02-01 16:28] LABS: ALKALINE PHOSPHATASE 253 u/l (38-126); ANION GAP 21 (6-22 (CALC)); BILIRUBIN, TOTAL 0.9 mg/dL (0.0-1.4); BUN 55 mg/dL (8-23); BUN/CREATININE RATIO 15 (12-20 (CALC)); CARBON DIOXIDE 18 mmol/l (22-30); CREATININE 3.6 mg/dL (0.7-1.3); GFR FOR AFR.AMER. 21 ML/MIN (>=60 (CALC)); GFR OTHER RACES 17 ML/MIN (>=60 (CALC)); POTASSIUM 5.9 mmol/l (3.5-5.1); SODIUM 128 mmol/l (137-146)
--- NOTE | 2022-02-01 16:52 | NUR ---
PT ARRIVED TO ROOM 14 VIA EMS, PT IS AAOX3.
--- NOTE | 2022-02-01 18:00 | NUR ---
PT IS AAOX4, HE IS ABLE TO MOVE HIS BILATERAL LOWER EXTREMITIES. SMALL ULCERATIONS NOTED TO THE LLL DRAINAGE NOTED TO THE AREA. PT DOES AMBULATE WITH A WALKER AND LIVES BY HIMSELF. PT WILL BE PENDING ADMISSION
--- NOTE | 2022-02-01 20:06 | NUR ---
comfort measures attempted, asking for pain med-md aware, inventory sheet copmplete- awaiting room upstairs
--- NOTE | 2022-02-01 20:23 | NUR ---
medicated for pain- other RN to give report to floor
[2022-02-01 20:33] LABS: CREATININE 3.2 mg/dL (0.7-1.3)
[2022-02-01 20:36] LABS: POTASSIUM 4.6 mmol/l (3.5-5.1)
--- NOTE | 2022-02-01 20:55 | NUR ---
PT ARRIVED TO FLOOR ACCOMPANIED BY ER NURSE. NO DISTRESS. PT REPORTS PAIN IS IMPROVING. SEAT COVERS TRIMMER IN USE. LLE WITH PITTING EDEMA. PULSE PALPABLE. PATIENT AWAKE AND ALERT
--- NOTE | 2022-02-01 21:05 | NUR ---
transported to icu without incident
--- NOTE | 2022-02-01 23:00 | NUR ---
PT RESTING WITH EYES CLOSED. VSS. NO DISTRESS. LLE ELEVATED ON PILLOW.
[2022-02-02] VITALS (14 sets, daily range): BP systolic 95–133; BP diastolic 60–96
--- NOTE | 2022-02-02 01:00 | NUR ---
RESTING WITH EYES CLOSED. LOWER EXTREMITIES ELEVATED WITH PILLOW. EASILY AROUSED. NO COMPLAINTS AT THIS TIME.
--- NOTE | 2022-02-02 02:50 | NUR ---
ASSISTED WITH URINAL. VSS. NO DISTRESS.
--- NOTE | 2022-02-02 05:10 | NUR ---
LAB AT BEDSIDE FOR MORNING BLOOD DRAW. PT TOLERATED WELL.
[2022-02-02 05:18] LABS: HEMATOCRIT 34.2 % (39.0-50.0); HEMOGLOBIN 10.3 g/dl (14.0-18.0); IMMATURE GRANULOCYTES 0.2 % (0.0-5.0); MEAN CORPUSCULAR HGB CONC 30.1 g/dL CAL (32.0-36.0); NEUT# 3.89 thou/uL (1.82-7.42); RED BLOOD COUNT 3.32 mill/uL (4.70-6.10); RED CELL DISTRI WIDTH 18.4 % (11.5-15.5)
[2022-02-02 05:54] LABS: ALBUMIN 3.3 g/dL (3.2-5.0); CREATININE 2.7 mg/dL (0.7-1.3); TOTAL PROTEIN 6.5 g/dL (6.3-8.2)
[2022-02-02 06:02] LABS: BILIRUBIN, TOTAL 0.4 mg/dL (0.0-1.4); POTASSIUM 5.4 mmol/l (3.5-5.1)
--- NOTE | 2022-02-02 06:32 | NUR ---
PATIENT RESTING WITH EYES CLOSED. DENIES PAIN AT THIS TIME. REQUEST THAT BREAFAST TRAY BE HELD AT BEDSIDE FOR HIM HE SLEEPS LATE AND DOES NOT WISH TO BE AWOKEN FOR BREAKFAST.
--- NOTE | 2022-02-02 06:56 | NUR ---
REPORT GIVEN TO DINAH PRUITT
--- NOTE | 2022-02-02 08:00 | NUR ---
PT MEDICATED PER EMAR. VSS, NO S/S OF DISTRESS NOTED
--- NOTE | 2022-02-02 11:15 | NUR ---
PT HOME MEDICATION PACK GIVEN TO JENN IN PHARMACY.
--- NOTE | 2022-02-02 13:41 | NUR ---
S: ARNOLDO NAIK is a 61 M who presents with cellulitis. He has a history of HIV and hypothyroidism. All medications in patient's chart were reviewed. O: VS: BP 113/68mmHg, P 71bpm, RR 11bpm ,T 98F W 94kg, HT 68inches , Scr= 2.4mg/dL,CrCl= 37ml/min A: Blood culture is pending. Wound culture is pending. P: Patient is on cefepime IV 1g Q12H. Vancomycin ordered for pharmacy to dose. Start Vancomycin 1250mg IV Q24H. Vancomycin trough is drawn before the 4th dose on 02/05/2022 @ 1130. Vancomycin goal trough is between 10-15 mcg/ml. Pharmacy will follow and or advise on antibiotics use as needed.
[2022-02-03 06:10] VITALS: BP 124/91
--- NOTE | 2022-02-03 06:19 | NUR ---
pt sleeping, hemodinamic stable on the monitor
--- NOTE | 2022-02-03 07:22 | NUR ---
REPORT FROM JOSE NIX. ASSUMED PT CARE.
[2022-02-03 07:27] LABS: ALBUMIN 3.7 g/dL (3.2-5.0); CREATININE 2.2 mg/dL (0.7-1.3); MAGNESIUM 1.9 mg/dL (1.6-2.3)
--- NOTE | 2022-02-03 08:51 | NUR ---
DR. NY AT BEDSIDE.
[2022-02-03 10:43] VITALS: BP 107/69
--- NOTE | 2022-02-03 13:06 | NUR ---
PT MEDICATED FOR PAIN UPON REQUEST. PT STATES PAIN 10/01. NO APPARENT DISTRESS NOTED. REPOSITIONED AT THIS TIME. CALL LIGHT WITHIN REACH. WILL CONTINUE TO MONITOR.
[2022-02-03 14:20] VITALS: BP 133/78
--- NOTE | 2022-02-03 15:05 | NUR ---
PT MOVED FROM ROOM 283 TO 281 WITH ALL BELONGINGS.
[2022-02-03 17:15] LABS: URINE BILIRUBIN - DIPSTICK NEGATIVE (NEGATIVE); URINE BLOOD DIPSTICK NEGATIVE (NEGATIVE); URINE CLARITY CLEAR; URINE COLOR YELLOW; URINE GLUCOSE - DIPSTICK NEGATIVE (NEGATIVE); URINE KETONE NEGATIVE (NEGATIVE); URINE LEUK ESTERASE NEGATIVE (Negative); URINE NITRITE - DIPSTICK NEGATIVE (Negative); URINE PROTEIN - DIPSTICK TRACE mg/dL (NEG-TRACE); URINE UROBILINOGEN - DIPSTICK 0.2 E.U./dL (0.2)
[2022-02-03 19:26] VITALS: BP 143/92
[2022-02-04] VITALS (8 sets, daily range): BP systolic 116–152; BP diastolic 67–114
[2022-02-04 06:15] LABS: ALBUMIN 3.5 g/dL (3.2-5.0); CREATININE 1.8 mg/dL (0.7-1.3); POTASSIUM 4.7 mmol/l (3.5-5.1)
--- NOTE | 2022-02-04 06:50 | NUR ---
REPORT FROM EMMANUEL NIX. ASSUMED PT CARE.
--- NOTE | 2022-02-04 11:53 | NUR ---
COMPLETED AN INFECTIOUS DISEASE CONSULT WITH DR PRIEST VIA THE [facility].
--- NOTE | 2022-02-04 12:55 | NUR ---
PT REMAINS 91% WHILE SITTING UP IN CHAIR. AMULATED IN DAO WITH COAL TRAMMER SAT DROPPED TO 89%. PT DENIES ANY SOB. WILL NOTIFY DR. NY.
--- NOTE | 2022-02-04 13:12 | NUR ---
S: ARNOLDO NAIK is a 61 M who presents with left leg cellulitis. He has a history of CHF, HTN, CKD, arthritis, and thyroid problems. All medications in patient's chart were reviewed. O: VS: BP 120/78 mmHg, P 71bpm, RR 20bpm ,T 97.1F W 94kg, HT 68 inches, Scr= 1.8mg/dL ,CrCl= 55.8ml/min Vancomycin trough 02/04/22@1127 = 18 A: Blood culture shows no growth. Wound culture shows ESBL Klebsiella and E.Faecalis which is sensitive to vancomycin. P: Patient is on Merrem IV Q8H and vancomycin 1250 mg IV q24h. Vancomycin ordered for pharmacy to dose. Decrease Vancomycin to 1 gram IV Q24H. Vancomycin trough is drawn before the 4th dose on 02/07/2022 @1330 . Vancomycin goal trough is between 10-15 mcg/ml. Pharmacy will follow and or advise on antibiotics use as needed.
--- NOTE | 2022-02-04 18:55 | NUR ---
REPORT GIVEN TO BERRY NIX.
--- NOTE | 2022-02-04 19:40 | NUR ---
PT RESTING IN SEMI FOWLERS POSITION. PT A/OX3. RESPIRATIONS EVEN AND UNLABORED ON ROOM AIR. LUNG SOUNDS CLEAR. HEART RHYTHM NORMAL, PACED PER ED. BOWEL SOUNDS ACTIVE. #20G RFA INFUSING WITH IVF PER ORDER. LEFT PEDAL PULSES WEAK, 1+ EDEMA NOTED. DRESSING TO LLE REMAINS CDI, ENCOURAGED ELEVATION. PT C/O OF 8/10 PAIN IN LLE AFTER MEDICATION. PT DENIES OF ANY NEEDS AT THIS TIME. ALL SAFTE[employer] PRECAUTIONS ARE IN PLACE WITH CALL LIGHT IN REACH. PT INSTRUCTED TO CALL FOR ASSISTANCE.
[2022-02-05] VITALS (10 sets, daily range): BP systolic 113–134; BP diastolic 57–90
--- NOTE | 2022-02-05 00:04 | NUR ---
PT SLEEPING IN SEMI FOWLERS POSITION.RESPIRATIONS EVEN AND UNLABORED. TELE MONITORING IN PLACE. IV SITE NOTED. NO S/S OF ANY DISTRESS. ALL SAFETY PRECAUTIONS ARE IN PLACE WITH CALL LIGHT INREACH
--- NOTE | 2022-02-05 03:54 | NUR ---
PT SLEEPING IN SEMI FOWLERS POSITION. RESPIRATIONS EVEN AND UNLABORED ON ROOM AIR. TELE MONITORING IN PLACE. LLE DRESSING REMAINS CDI. #20G LFA PATENT. NO SIGNS OF ANY DISTRESS. ALL SAFTEY PRECAUTIONS ARE IN PLACE WITH CALL LIGHT IN REACH
[2022-02-05 06:11] LABS: ALBUMIN 3.5 g/dL (3.2-5.0); CREATININE 1.5 mg/dL (0.7-1.3); POTASSIUM 4.1 mmol/l (3.5-5.1)
--- NOTE | 2022-02-05 09:45 | NUR ---
0700 BEDSIDE REPORT RECEIVED FROM LINDA. PT RESTING IN BED WATCHING TV, NO SIGNS OF DISTRESS NOTED. RESPIRATIONS EVEN AND UNLABORED. NO C/O PAIN VOCIED AT THIS TIME. DRESSING C/D/I TO LEFT LEG. PT UPDATED ON POC, VERBALIZES UNDERSTANDING WILL REINFORCE NEEDED. ALL PERSONAL ITEMS WITHIN REACH. SAFETY PRECAUTIONS IN PLACE.
--- NOTE | 2022-02-05 19:58 | NUR ---
RECIEVED REPORT. PT A/OX3. RESPIRATIONS EVEN AND UNLABOED ON ROOM AIR. LUNG SOUNDS CLEAR. HEART RHYTHM NORMAL WITH TELE IN PLACE. BOWEL SOUNDS ACTIVE. #20G LFA PATENT. LLE DRESSING REMAINS CDI. 1+ EDEMA NOTED TO LLE, ENCOURAGED ELEVATION. PT C/O OF 6/10 LLE PAIN, MEDICATED PER EMAR. PT DENIES OF ANY ADDITIONAL NEEDS. ALL SAFTEY PRECAUTONS ARE IN PLACE WITH CALL LIGHT IN REACH. CONTACT PRECAUTIONS IN PLACE
--- NOTE | 2022-02-06 00:21 | NUR ---
PT SLEEPING IN SEMI FOWLERS POSITION. RESPIRATIONS EVEN AND UNLABORED ON ROOM AIR. TELE MONITORING IN PLACE. NO SIGNS OF ANY DISTRESS. ALL SAFTEY PRECAUTIONS ARE IN PLACE WITH CALL LIGHT IN REACH
[2022-02-06 04:31] VITALS: BP 151/99
--- NOTE | 2022-02-06 04:45 | NUR ---
PT SLEEPING IN SEMI FOWLERS POSITION. RESPIRATIONS EVEN AND UNLABORED ON ROOM AIR. TELE MONITORING IN PLACE. LLE DRESSING CDI. NO SIGNS OF ANY DISTRESS. ALL SAFTEY PRECAUTIONS ARE IN PLACE WITHC ALL LIGHT IN REACH
[2022-02-06 06:01] LABS: HEMOGLOBIN 10.1 g/dl (14.0-18.0); IMMATURE GRANULOCYTES 1.5 % (0.0-5.0); MEAN CELL VOLUME 103.9 fL CALC (80.0-100.0); MEAN CORPUSCULAR HGB 32.8 pG CALC (26.0-32.0); MEAN CORPUSCULAR HGB CONC 31.6 g/dL CAL (32.0-36.0); PLATELET COUNT 199 thou/uL (130-400); RED BLOOD COUNT 3.08 mill/uL (4.70-6.10); RED CELL DISTRI WIDTH 19.4 % (11.5-15.5)
[2022-02-06 06:10] LABS: ALBUMIN 3.2 g/dL (3.2-5.0); BUN 37 mg/dL (8-23); CARBON DIOXIDE 28 mmol/l (22-30); CHLORIDE 110 mmol/l (95-108); CREATININE 1.3 mg/dL (0.7-1.3); GFR FOR AFR.AMER. > 60 ML/MIN (>=60 (CALC)); GFR OTHER RACES 56 ML/MIN (>=60 (CALC)); POTASSIUM 4.5 mmol/l (3.5-5.1); SODIUM 142 mmol/l (137-146)
[2022-02-06 06:35] LABS: BAND 1 % (0-8); MANUAL DIFFERENTIAL YES
[2022-02-06 06:36] LABS: NUCLEATED RED BLOOD CELL 60 /100WBC (0-1)
[2022-02-06 07:27] VITALS: BP 148/97
[2022-02-06 07:28] VITALS: BP 148/97
--- NOTE | 2022-02-06 07:41 | NUR ---
PT RESTING IN LOW FOWLERS POSITION. PT A/OX3 ASSESSMENT AND VS COMPLETED. HEART RHYTHM ON TELE. RESPIRATIONS ON ROOM AIR,IV SITE NOTED TO LFA NS @KVO. PT DENIES ADDITIONAL NEEDS AT THE TIME ALL SAFETY PRECAUTIONS IN PLACE CALL LIGHT INREACH.
[2022-02-06 10:42] VITALS: BP 108/71
[2022-02-06 10:51] VITALS: BP 108/71
--- NOTE | 2022-02-06 11:22 | NUR ---
Pt refused treatment, stated he was going home and wanted to sleep.
[2022-02-06] MEDS ORDERED: VIBRAMYCIN100 M2 PO (11:23)
[2022-02-06] MEDS ORDERED: MEDDOSEPAK PO (11:23)
[2022-02-06] MEDS ORDERED: ERTAPENEM1 GM IV (11:23)
[2022-02-06] MEDS ORDERED: KEFLEX500 MG PO (11:23)
[2022-02-06] MEDS ORDERED: OXYCOD-APAP1 TA1 PO (11:23)
--- NOTE | 2022-02-06 12:08 | NUR ---
CONFIRMED A PHYSICIAN CONSULT WITH WOUND CARE AT 1207 HRS.
--- NOTE | 2022-02-06 13:47 | NUR ---
PT TO BE DC PT TO LEAVE WITH IV FOR TOMORROWS IV THERAPY.
--- NOTE | 2022-02-06 14:30 | NUR ---
Discharge instructions given. Patient verbalizes understanding of same. Discharged in stable condition via Wheelchair to Home with staff. All belongings sent with pt. iv kept for iv therapy. tele removed.
== END 2022-02-06 14:30 | DRG 863 ==
LOC: ED 15:28 → ED-I 17:30 → ED 18:03 → MS2 18:04 → ICU 18:45 → MS2 02-02 14:41
PROVIDERS: Family Medicine; Internal Medicine Nephrology; Nurse Practitioner Family; ADMIT Internal Medicine; ATTEND Internal Medicine
DX: T81.41XA Infection following a procedure, superficial incisional surgical site, initial encounter (principal); L03.116 Cellulitis of left lower limb; I13.0 Hypertensive heart and chronic kidney disease with heart failure and stage 1 through stage 4 chronic kidney disease, or unspecified chronic kidney disease; N17.9 Acute kidney failure, unspecified; T81.31XA Disruption of external operation (surgical) wound, not elsewhere classified, initial encounter; E87.1 Hypo-osmolality and hyponatremia; E87.20 Acidosis, unspecified; Z16.12 Extended spectrum beta lactamase (ESBL) resistance; I95.9 Hypotension, unspecified; E87.5 Hyperkalemia; I50.9 Heart failure, unspecified; N18.30 Chronic kidney disease, stage 3 unspecified; D63.1 Anemia in chronic kidney disease; E86.9 Volume depletion, unspecified; E11.22 Type 2 diabetes mellitus with diabetic chronic kidney disease; J44.9 Chronic obstructive pulmonary disease, unspecified; E03.9 Hypothyroidism, unspecified; F41.9 Anxiety disorder, unspecified; F31.9 Bipolar disorder, unspecified; G62.9 Polyneuropathy, unspecified; G89.29 Other chronic pain; F17.200 Nicotine dependence, unspecified, uncomplicated; B96.1 Klebsiella pneumoniae [K. pneumoniae] as the cause of diseases classified elsewhere; B95.2 Enterococcus as the cause of diseases classified elsewhere; Y83.1 Surgical operation with implant of artificial internal device as the cause of abnormal reaction of the patient, or of later complication, without mention of misadventure at the time of the procedure; Z79.01 Long term (current) use of anticoagulants; Z21 Asymptomatic human immunodeficiency virus [HIV] infection status; Z91.81 History of falling; Z79.891 Long term (current) use of opiate analgesic; Z86.718 Personal history of other venous thrombosis and embolism; Z95.0 Presence of cardiac pacemaker; Z79.899 Other long term (current) drug therapy; Z96.652 Presence of left artificial knee joint; Z95.828 Presence of other vascular implants and grafts
CPT/HCPCS: J0692; J1335; J1756; J3370

== ENCOUNTER 2022-03-11 23:41 | Emergency (ER) | payer MEDICARE, MEDICAID ==
[~2022-03-11] VITALS: Ht 172.7 cm; Wt 79.3 kg
[~2022-03-11 23:41] MED LIST changes: +ERTAPENEM1 GM IV; +MEDDOSEPAK PO; +VIBRAMYCIN100 M2 PO
[2022-03-12 04:15] LABS: BASO% 0.7 % (0-3); EOS% 1.5 % (0-8); IMMATURE GRANULOCYTES 0.3 % (0.0-5.0); LYMPH% 52.3 % (15-41); MEAN CELL VOLUME 106.5 fL CALC (80.0-100.0); MEAN CORPUSCULAR HGB 33.2 pG CALC (26.0-32.0); MEAN CORPUSCULAR HGB CONC 31.1 g/dL CAL (32.0-36.0); MONO% 9.4 % (2-13); NEUT# 3.39 thou/uL (1.82-7.42); NEUT% 35.8 % (42-76); RED BLOOD COUNT 3.83 mill/uL (4.70-6.10); RED CELL DISTRI WIDTH 20.7 % (11.5-15.5)
[2022-03-12 04:16] LABS: HEMATOCRIT 40.8 % (39.0-50.0); HEMOGLOBIN 12.7 g/dl (14.0-18.0)
[2022-03-12 04:28] LABS: ALBUMIN 3.7 g/dL (3.2-5.0); ALKALINE PHOSPHATASE 260 u/l (38-126); ANION GAP 9 (6-22 (CALC)); BILIRUBIN, TOTAL 0.3 mg/dL (0.0-1.4); BUN 22 mg/dL (8-23); BUN/CREATININE RATIO 15 (12-20 (CALC)); CARBON DIOXIDE 31 mmol/l (22-30); CHLORIDE 107 mmol/l (95-108); CREATININE 1.4 mg/dL (0.7-1.3); GFR FOR AFR.AMER. > 60 ML/MIN (>=60 (CALC)); GFR OTHER RACES 51 ML/MIN (>=60 (CALC)); POTASSIUM 4.2 mmol/l (3.5-5.1); SGOT/AST 28 u/l (19-48); SODIUM 143 mmol/l (137-146); TOTAL PROTEIN 6.7 g/dL (6.3-8.2)
[2022-03-12 15:00] VITALS: BP 104/60
== END 2022-03-12 14:40 | disposition short-term general hospital (02) ==
LOC: ED 23:41
PROVIDERS: Emergency Medicine
DX: S82.102A Unspecified fracture of upper end of left tibia, initial encounter for closed fracture (principal); M97.12XA Periprosthetic fracture around internal prosthetic left knee joint, initial encounter; I10 Essential (primary) hypertension; G62.9 Polyneuropathy, unspecified; F41.9 Anxiety disorder, unspecified; M10.9 Gout, unspecified; F17.210 Nicotine dependence, cigarettes, uncomplicated; W18.30XA Fall on same level, unspecified, initial encounter; Y92.009 Unspecified place in unspecified non-institutional (private) residence as the place of occurrence of the external cause; Z21 Asymptomatic human immunodeficiency virus [HIV] infection status; Z96.652 Presence of left artificial knee joint; Z79.899 Other long term (current) drug therapy; Z86.718 Personal history of other venous thrombosis and embolism; Z95.0 Presence of cardiac pacemaker

== ENCOUNTER 2022-04-13 08:45 | Emergency (ER) | payer MEDICARE, MEDICAID ==
[~2022-04-13] VITALS: Ht 172.7 cm; Wt 88.9 kg
[2022-04-13] VITALS (20 sets, daily range): BP systolic 41–138; BP diastolic 26–94
[2022-04-13 09:45] LABS: BASO% 0.4 % (0-3); EOS% 5.4 % (0-8); HEMATOCRIT 41.3 % (39.0-50.0); HEMOGLOBIN 12.9 g/dl (14.0-18.0); IMMATURE GRANULOCYTES 0.3 % (0.0-5.0); LYMPH% 55.9 % (15-41); MEAN CELL VOLUME 99.5 fL CALC (80.0-100.0); MEAN CORPUSCULAR HGB 31.1 pG CALC (26.0-32.0); MEAN CORPUSCULAR HGB CONC 31.2 g/dL CAL (32.0-36.0); NEUT# 2.2 thou/uL (1.82-7.42); RED BLOOD COUNT 4.15 mill/uL (4.70-6.10); RED CELL DISTRI WIDTH 19.5 % (11.5-15.5)
[2022-04-13 10:23] LABS: CREATININE 2.2 mg/dL (0.7-1.3); TOTAL PROTEIN 7.8 g/dL (6.3-8.2)
[2022-04-13 10:24] LABS: BILIRUBIN, TOTAL 0.5 mg/dL (0.2-1.3); POTASSIUM 3.3 mmol/l (3.5-5.1)
== END 2022-04-13 17:49 | disposition short-term general hospital (02) ==
LOC: ED 08:45
PROVIDERS: Family Medicine
DX: T81.41XA Infection following a procedure, superficial incisional surgical site, initial encounter (principal); L03.116 Cellulitis of left lower limb; S82.92 Unspecified fracture of left lower leg; I10 Essential (primary) hypertension; G62.9 Polyneuropathy, unspecified; F41.9 Anxiety disorder, unspecified; M10.9 Gout, unspecified; F17.210 Nicotine dependence, cigarettes, uncomplicated; Y83.2 Surgical operation with anastomosis, bypass or graft as the cause of abnormal reaction of the patient, or of later complication, without mention of misadventure at the time of the procedure; X58.XXXD Exposure to other specified factors, subsequent encounter; Z21 Asymptomatic human immunodeficiency virus [HIV] infection status; Z95.0 Presence of cardiac pacemaker; Z86.718 Personal history of other venous thrombosis and embolism; Z79.899 Other long term (current) drug therapy

== ENCOUNTER 2022-05-29 11:46 | Observation (INO) | payer MEDICARE, MEDICAID ==
[2022-05-29] VITALS (26 sets, daily range): BP systolic 74–141; BP diastolic 43–98
[~2022-05-29] VITALS: Ht 172.7 cm; Wt 86.6 kg
--- NOTE | 2022-05-29 11:50 | NUR ---
PATIENT ARRIVED VIA EMS TO ROOM 13.
--- NOTE | 2022-05-29 12:10 | NUR ---
PT PRESENTS TO THE ED VIA EMS LETHARGIC, DOES NOT ANSWER QUESTIONS AND IS AROUSED WITH NOXIOUS STIMULI. EMS STATES THAT HOME HEALTH FOUND HIM AT HOME WITH DECREASED LEVEL OF CONSIOUSNESS AND NOTICED THAT PT TOOK 2 EXTRA OXYCODONE. EMS STATES THAT HOME HEALTH BELEIVES OVERDOSAGE OF MEDIATION WAS ACCIDENTAL. PT DOES NOT STATE PAIN ANYWHERE. PT'S WORDS ARE UNINTELLIGABLE AND SLURRED. PROVIDER IS MADE AWARE OF PT'S CONDITION
[2022-05-29 12:24] LABS: URINE BILIRUBIN - DIPSTICK NEGATIVE (NEGATIVE); URINE BLOOD DIPSTICK MODERATE (NEGATIVE); URINE COLOR YELLOW; URINE GLUCOSE - DIPSTICK NEGATIVE (NEGATIVE); URINE KETONE NEGATIVE (NEGATIVE); URINE LEUK ESTERASE NEGATIVE (NEGATIVE); URINE PROTEIN - DIPSTICK 100 mg/dL (NEG-TRACE); URINE SPECIFIC GRAVITY 1.015; URINE UROBILINOGEN - DIPSTICK 0.2 E.U./dL (0.2)
[2022-05-29 12:25] LABS: URINE NITRITE - DIPSTICK NEGATIVE (Negative)
[2022-05-29 12:26] LABS: URINE EPITHELIAL CELLS FEW EPI/hpf (0-FEW); URINE MUCUS FEW hpf (NONE-FEW)
[2022-05-29 12:30] LABS: BASO% 0.5 % (0-3); EOS% 3.8 % (0-8); HEMATOCRIT 37.4 % (39.0-50.0); HEMOGLOBIN 11.8 g/dl (14.0-18.0); IMMATURE GRANULOCYTES 0.3 % (0.0-5.0); LYMPH% 43.4 % (15-41); MEAN CELL VOLUME 101.9 fL CALC (80.0-100.0); MEAN CORPUSCULAR HGB 32.2 pG CALC (26.0-32.0); MEAN CORPUSCULAR HGB CONC 31.6 g/dL CAL (32.0-36.0); MONO% 12.7 % (2-13); NEUT# 3.07 thou/uL (1.82-7.42); NEUT% 39.3 % (42-76); RED BLOOD COUNT 3.67 mill/uL (4.70-6.10); RED CELL DISTRI WIDTH 18.4 % (11.5-15.5)
--- NOTE | 2022-05-29 12:38 | NUR ---
PT WAS GIVEN NARCAN PER DR. BRAN. . PT'S IS STILL LETHARGIC BUT IS MORE EASILY AROUSED AND SEEMS AGITATED. PT MOVES ARMS AND LEGS, SPEECH IS STILL SLURRED BUT WILL RESPOND OCCASIONALLY IF TALKED TO. NO PAIN NOTED FROMPT AT THIS TIME.
[2022-05-29 12:39] LABS: ALBUMIN 4.7 g/dL (3.2-5.0); ALKALINE PHOSPHATASE 157 u/l (38-126); ANION GAP 18 (6-22 (CALC)); BILIRUBIN, TOTAL 0.5 mg/dL (0.2-1.3); BUN 35 mg/dL (8-23); BUN/CREATININE RATIO 16 (12-20 (CALC)); CARBON DIOXIDE 25 mmol/l (22-30); CHLORIDE 104 mmol/l (95-108); CREATININE 2.2 mg/dL (0.7-1.3); GFR FOR AFR.AMER. 37 ML/MIN (>=60 (CALC)); GFR OTHER RACES 30 ML/MIN (>=60 (CALC)); SGOT/AST 35 u/l (19-48); SODIUM 142 mmol/l (137-146); TOTAL PROTEIN 8.5 g/dL (6.3-8.2)
[2022-05-29 12:40] LABS: POTASSIUM 4.6 mmol/l (3.5-5.1)
[2022-05-29 13:18] LABS: TSH, 3RD GENERATION 0.45 uIU/mL (0.47 - 4.68)
--- NOTE | 2022-05-29 14:01 | NUR ---
PT HAS LARGE RECENT SURGICAL SITE TO LEFT THOMPSON CLOSE TO ANKLE. SUTURE SITE ENCOMPASSING WOUN IS RED AND AGGITATED. PT IS RESTLESS AND KICKING BEDRAILS. A LOOSE CUSHIONED DRESSING WAS APPLIED TO WOUND TO PROVIDE PROTECTION TO WOUND.
[2022-05-29] MEDS ORDERED: BUSPIRONE5 MG PO (14:22)
[2022-05-29] MEDS ORDERED: MITIGARE0.6 MG PO (14:28)
[2022-05-29] MEDS ORDERED: NYSTOP100000 UNI (14:29)
[2022-05-29] MEDS ORDERED: SANTYL250 UNIT/G (14:30)
[2022-05-29] MEDS ORDERED: DOXAZOSIN1 MG PO (14:30)
[2022-05-29] MEDS ORDERED: ELIQUIS2.5 MG PO (14:31)
[2022-05-29] MEDS ORDERED: OXYCODONE HYDROC5 M1 PO (14:34)
[2022-05-29] MEDS ORDERED: PROTONIX40 M2 PO (14:46)
--- NOTE | 2022-05-29 14:56 | NUR ---
PT WAS FRESHENED UP WIT ASSISTANCE OF NURSING STAFF. PT IS NOCOMPLIANT WITH COMMANDS AND SPEECH AND LOC ARE STILL ALTERED AT THIS TIME.
--- NOTE | 2022-05-29 15:23 | NUR ---
CHECKED ON PT. PT WILL OPEN EYES AND ANSWER QUESTIONS WITH UNINTELLIGABLE WORDS. PT IS VERY RESTLESS AND SEEMS TO STILL BE ADGITATED. NAD AT THIS TIME.
--- NOTE | 2022-05-29 16:33 | NUR ---
Received report from DINAH Ron. Per nurse, patient "should be a 1 on 1" as patient "tries to kick himself over the rail". Patient is incontinent but actively tries to remove briefs placed by nurses. Upon arrival to ER patient's MEND was a 4. Current MEND a 3.
--- NOTE | 2022-05-29 16:40 | NUR ---
CALLED ICU AND SPOKE TO NURSE SMITH FOR REPORT ON PT. PT IS NOT ALERT AND NOT ORIENTED, VERBALIZES WHEN SPOKEN TO BUT SPEECH IS UNINTELLIGABLE. PT DOES NOT VOICE COMPLAINTS OF PAIN.
--- NOTE | 2022-05-29 16:51 | NUR ---
Patient arrived to the unit via stretcher accompained by staff. Patient open eyes to speech and sternal rub. Patient will periodically follow commands, but is lethargic. Patient's speech is understandable when awake, but garbled. Patient c/o being cold and requested to sleep. Patient has a surgical wound on L ball. Pitting edema noted on L foot. Patient has a has a healed surgical scar on R thigh. Patient unable to answer assessment questions. Assessment completed based on previous admission. Physical assessment completed 05/29. Patient disoriented. Bed in low position with bed alarm on. Call light within reach. Will continue to monitor.
--- NOTE | 2022-05-29 17:03 | NUR ---
TRANSPORTED PT TO ICU ROOM 7 ON TELEMETRY, WITH A PATENT 20 GAUGE IN THE RIGHT AC. PT WAS ASLEEP WHILE TRANPORTING. NAD AT TIME OF HAND-OFF AND NURSE LUIS DID NOT VOICE AY CONCERNS.
--- NOTE | 2022-05-29 17:09 | NUR ---
PT IS NOT ALERT AND NOT ORIENTED AT TIME OF TRANSPORT.
--- NOTE | 2022-05-29 17:57 | NUR ---
Patient currently sleeping. Patient is SR on the monitor. NO s/s of distress. Bed in low position. Bed alarm on. Call light within reach. Will continue to monitor.
--- NOTE | 2022-05-29 19:45 | NUR ---
does not fully arouse. no apparent distress. food mixer repairer shows sinus rhythm. #20 rac ns infusing @ 30cchr. pure wick cath in place. sitter @ bedside. bed alarm on. fall precautions cont.
--- NOTE | 2022-05-29 20:30 | NUR ---
sitter remains @ bedside. said pt woke up for few seconds & asked for a pain pill. pt is asleep & does NOT appear in pain.
--- NOTE | 2022-05-29 23:00 | NUR ---
pt voided per urinal then returned to sleep. sitter remains @ bedside.
[2022-05-30] VITALS (15 sets, daily range): BP systolic 75–165; BP diastolic 44–73
--- NOTE | 2022-05-30 02:00 | NUR ---
resting quietly. resps even & unlabored. no apparent distress. monitor car operator shows sinus rhythm.
--- NOTE | 2022-05-30 04:00 | NUR ---
eyes closed. no distress. air sampling and monitoring shows sinus rhythm.
--- NOTE | 2022-05-30 05:00 | NUR ---
lab here. blood drawn.
--- NOTE | 2022-05-30 05:10 | NUR ---
awake. requested ice cream-given.
[2022-05-30 05:37] LABS: HEMATOCRIT 32.8 % (39.0-50.0); HEMOGLOBIN 10.6 g/dl (14.0-18.0); MEAN CELL VOLUME 101.2 fL CALC (80.0-100.0); MEAN CORPUSCULAR HGB 32.7 pG CALC (26.0-32.0); MEAN CORPUSCULAR HGB CONC 32.3 g/dL CAL (32.0-36.0); RED BLOOD COUNT 3.24 mill/uL (4.70-6.10); RED CELL DISTRI WIDTH 18.3 % (11.5-15.5)
[2022-05-30 05:48] LABS: ALBUMIN 3.8 g/dL (3.2-5.0); BILIRUBIN, TOTAL 0.7 mg/dL (0.2-1.3); CREATININE 1.7 mg/dL (0.7-1.3); MAGNESIUM 1.9 mg/dL (1.6-2.3); POTASSIUM 4.2 mmol/l (3.5-5.1); TOTAL PROTEIN 6.8 g/dL (6.3-8.2)
--- NOTE | 2022-05-30 06:04 | NUR ---
cardiac cath technologist shows sinus rhythm. ivf cont. sitter @ bedside.
--- NOTE | 2022-05-30 08:00 | NUR ---
Patient sitting up in bed eating breakfast. During assessment patient became upset about the dressing on his L ball. Ball graft was covered with 2 optifoam dressings and held in place with transparent tape. Patient came up from the ER at 1451 on 05/29 with said dressing. Patient began to speak loudly and firmly to this global technical writer about changing the dressing right now or "it will get infected and if it gets infected it would be cut off." This global technical writer advised the patient that the dressing could be changed. The patient continued to speak in an angry tone about the need to change the dressing "right now" and he "could do it himself". Patient stated "either change the dressing or I am leaving" as patient started to remove electrodes. Advised that patient that the dressing could be changed rn, however it was the patient's choice to stay in the hospital or leave. This global technical writer asked the patient to speak calmly and explain which supplies the patient uses for dressing changes. Patient provided the information. Dressing was changed using 2 optifoam covered by kerlix. Patient was satisfied with dressing change and began to calm down. Patient was asked if electrodes could be reapplied, patient agreed. Assessment completed. Patient SR on the monitor. No current s/s of distress. Patient A/O x3. Bed in low position. Patient c/o stabbing pain in L ball. Sitter at bedside. Will continue to monitor.
--- NOTE | 2022-05-30 08:34 | NUR ---
Patient requesting pants and wallet. Advised patient that the only personal belongings received from ER were wet underwear. Patient upset with information. Patient stated he does not understand how he got here. Advised patient of report received from ER. Patient stated that he had alcohol after taking his oxycodone. He did not take too much medication.
--- NOTE | 2022-05-30 12:09 | NUR ---
Patient appears to be resting with eyes closed. Sitter at bedside. Patient advised that he has been discharged and awaiting a ride from [address]. Patient verbalized understanding. No s/s of distress. Will continue to monitor.
--- NOTE | 2022-05-30 14:06 | NUR ---
Discharge instructions given. Patient verbalizes understanding of same. Discharged in stable condition via Medical Transport to Home with [facility] staff. All belongings sent with pt (undergarments).
== END 2022-05-30 14:03 | disposition home or self-care (01) ==
LOC: ED 11:46 → ED-I 12:14 → ED 14:18 → ICU 14:19
PROVIDERS: Family Medicine; ADMIT Internal Medicine; ATTEND Internal Medicine
DX: G92.8 Other toxic encephalopathy (principal); T40.2X5A Adverse effect of other opioids, initial encounter; I12.9 Hypertensive chronic kidney disease with stage 1 through stage 4 chronic kidney disease, or unspecified chronic kidney disease; N18.9 Chronic kidney disease, unspecified; E03.9 Hypothyroidism, unspecified; Z21 Asymptomatic human immunodeficiency virus [HIV] infection status; F41.9 Anxiety disorder, unspecified; M10.9 Gout, unspecified; F17.200 Nicotine dependence, unspecified, uncomplicated; G47.30 Sleep apnea, unspecified; M54.9 Dorsalgia, unspecified; G89.29 Other chronic pain; Z86.718 Personal history of other venous thrombosis and embolism; Z79.899 Other long term (current) drug therapy; Z79.891 Long term (current) use of opiate analgesic; Z20.822 Contact with and (suspected) exposure to COVID-19

== ENCOUNTER 2022-06-15 08:50 | Inpatient (IN) | payer MEDICARE, MEDICAID ==
[~2022-06-15] VITALS: Ht 172.7 cm; Wt 89.7 kg
[2022-06-15] VITALS (71 sets, daily range): BP systolic 53–137; BP diastolic 26–107
[~2022-06-15 08:50] MED LIST changes: +BUSPIRONE5 MG PO; +DOXAZOSIN1 MG PO; +ELIQUIS2.5 MG PO; +MITIGARE0.6 MG PO; +NYSTOP100000 UNI; +OXYCODONE HYDROC5 M1 PO; +SANTYL250 UNIT/G
[2022-06-15 09:33] LABS: BASO% 0.7 % (0-3); HEMATOCRIT 36.7 % (39.0-50.0); HEMOGLOBIN 11.5 g/dl (14.0-18.0); IMMATURE GRANULOCYTES 0.1 % (0.0-5.0); LYMPH% 36.2 % (15-41); MEAN CELL VOLUME 102.8 fL CALC (80.0-100.0); MEAN CORPUSCULAR HGB 32.2 pG CALC (26.0-32.0); MEAN CORPUSCULAR HGB CONC 31.3 g/dL CAL (32.0-36.0); MONO% 10.7 % (2-13); NEUT# 3.51 thou/uL (1.82-7.42); NEUT% 50.3 % (42-76); RED BLOOD COUNT 3.57 mill/uL (4.70-6.10)
[2022-06-15 10:01] LABS: ALBUMIN 4.5 g/dL (3.2-5.0); ALKALINE PHOSPHATASE 178 u/l (38-126); ANION GAP 15 (6-22 (CALC)); BILIRUBIN, TOTAL 0.7 mg/dL (0.2-1.3); BUN 41 mg/dL (8-23); BUN/CREATININE RATIO 17 (12-20 (CALC)); CARBON DIOXIDE 28 mmol/l (22-30); CHLORIDE 100 mmol/l (95-108); CREATININE 2.4 mg/dL (0.7-1.3); GFR FOR AFR.AMER. 33 ML/MIN (>=60 (CALC)); GFR OTHER RACES 27 ML/MIN (>=60 (CALC)); POTASSIUM 3.8 mmol/l (3.5-5.1); SGOT/AST 23 u/l (19-48); SODIUM 139 mmol/l (137-146)
[2022-06-15 10:52] LABS: URINE BILIRUBIN - DIPSTICK NEGATIVE (NEGATIVE); URINE BLOOD DIPSTICK NEGATIVE (NEGATIVE); URINE COLOR YELLOW; URINE GLUCOSE - DIPSTICK NEGATIVE (NEGATIVE); URINE KETONE NEGATIVE (NEGATIVE); URINE LEUK ESTERASE NEGATIVE (NEGATIVE); URINE NITRITE - DIPSTICK NEGATIVE (Negative); URINE PROTEIN - DIPSTICK NEGATIVE (NEG-TRACE); URINE UROBILINOGEN - DIPSTICK 0.2 E.U./dL (0.2)
[2022-06-16] VITALS (90 sets, daily range): BP systolic 81–141; BP diastolic 38–96
[2022-06-16 05:51] LABS: HEMATOCRIT 32.5 % (39.0-50.0); MEAN CELL VOLUME 104.2 fL CALC (80.0-100.0); MEAN CORPUSCULAR HGB 32.1 pG CALC (26.0-32.0); MEAN CORPUSCULAR HGB CONC 30.8 g/dL CAL (32.0-36.0); RED BLOOD COUNT 3.12 mill/uL (4.70-6.10); RED CELL DISTRI WIDTH 17.9 % (11.5-15.5)
[2022-06-16 06:08] LABS: ALBUMIN 3.6 g/dL (3.2-5.0); CREATININE 1.8 mg/dL (0.7-1.3); TOTAL PROTEIN 6.5 g/dL (6.3-8.2)
[2022-06-16 06:09] LABS: BILIRUBIN, TOTAL 0.3 mg/dL (0.2-1.3); MAGNESIUM 1.2 mg/dL (1.6-2.3)
[2022-06-17] VITALS (54 sets, daily range): BP systolic 81–145; BP diastolic 53–95
[2022-06-17 06:19] LABS: HEMATOCRIT 32.7 % (39.0-50.0); HEMOGLOBIN 10.1 g/dl (14.0-18.0); MEAN CELL VOLUME 105.8 fL CALC (80.0-100.0); MEAN CORPUSCULAR HGB 32.7 pG CALC (26.0-32.0); MEAN CORPUSCULAR HGB CONC 30.9 g/dL CAL (32.0-36.0); RED BLOOD COUNT 3.09 mill/uL (4.70-6.10); RED CELL DISTRI WIDTH 17.8 % (11.5-15.5)
[2022-06-17 07:02] LABS: ALBUMIN 3.6 g/dL (3.2-5.0); ALKALINE PHOSPHATASE 178 u/l (38-126); ANION GAP 7 (6-22 (CALC)); BILIRUBIN, TOTAL 0.4 mg/dL (0.2-1.3); BUN 27 mg/dL (8-23); BUN/CREATININE RATIO 23 (12-20 (CALC)); C-REACTIVE PROTEIN 3.4 mg/dL (0-0.9); CARBON DIOXIDE 33 mmol/l (22-30); CHLORIDE 106 mmol/l (95-108); CREATININE 1.2 mg/dL (0.7-1.3); GFR FOR AFR.AMER. > 60 ML/MIN (>=60 (CALC)); GFR OTHER RACES > 60 ML/MIN (>=60 (CALC)); POTASSIUM 4.2 mmol/l (3.5-5.1); SGOT/AST 20 u/l (19-48); SODIUM 142 mmol/l (137-146); TOTAL PROTEIN 6.5 g/dL (6.3-8.2)
[2022-06-17 07:03] LABS: MAGNESIUM 1.9 mg/dL (1.6-2.3)
== END 2022-06-17 14:00 | disposition home health service (06) | DRG 315 ==
LOC: ED 08:50 → ED-I 12:40 → ED 12:56 → ICU 12:57
PROVIDERS: Family Medicine; ADMIT Internal Medicine; ATTEND Internal Medicine
PROC: 05HM33Z Insertion of Infusion Device into Right Internal Jugular Vein, Percutaneous Approach (ICD-10-PCS; principal; 2022-06-15)
PROC: 3E043XZ Introduction of Vasopressor into Central Vein, Percutaneous Approach (ICD-10-PCS; 2022-06-15)
DX: I95.9 Hypotension, unspecified (principal); I13.0 Hypertensive heart and chronic kidney disease with heart failure and stage 1 through stage 4 chronic kidney disease, or unspecified chronic kidney disease; N17.9 Acute kidney failure, unspecified; I50.9 Heart failure, unspecified; N18.9 Chronic kidney disease, unspecified; I49.5 Sick sinus syndrome; G62.9 Polyneuropathy, unspecified; F41.9 Anxiety disorder, unspecified; F31.9 Bipolar disorder, unspecified; M54.9 Dorsalgia, unspecified; G89.29 Other chronic pain; M25.571 Pain in right ankle and joints of right foot; F17.200 Nicotine dependence, unspecified, uncomplicated; Z86.718 Personal history of other venous thrombosis and embolism; Z95.0 Presence of cardiac pacemaker; Z21 Asymptomatic human immunodeficiency virus [HIV] infection status; Z79.899 Other long term (current) drug therapy; Z87.81 Personal history of (healed) traumatic fracture; Z98.890 Other specified postprocedural states; Z79.01 Long term (current) use of anticoagulants; Z20.822 Contact with and (suspected) exposure to COVID-19
CPT/HCPCS: J3475; Q9967

== ENCOUNTER 2022-07-27 16:06 | Emergency (ER) | payer MEDICARE, MEDICAID ==
[2022-07-27] VITALS (14 sets, daily range): BP systolic 87–132; BP diastolic 55–94
[~2022-07-27] VITALS: Ht 172.7 cm; Wt 86.2 kg
[2022-07-27] MEDS ORDERED: LORTAB 5/3255 MG PO (21:25)
== END 2022-07-27 21:42 | disposition home or self-care (01) ==
LOC: ED 16:06
DX: S00.91XA Abrasion of unspecified part of head, initial encounter (principal); S81.802A Unspecified open wound, left lower leg, initial encounter; G89.4 Chronic pain syndrome; I10 Essential (primary) hypertension; G62.9 Polyneuropathy, unspecified; F41.9 Anxiety disorder, unspecified; M10.9 Gout, unspecified; F17.200 Nicotine dependence, unspecified, uncomplicated; W01.0XXA Fall on same level from slipping, tripping and stumbling without subsequent striking against object, initial encounter; Y92.009 Unspecified place in unspecified non-institutional (private) residence as the place of occurrence of the external cause; Z21 Asymptomatic human immunodeficiency virus [HIV] infection status; Z95.0 Presence of cardiac pacemaker; Z86.718 Personal history of other venous thrombosis and embolism; Z79.899 Other long term (current) drug therapy

== ENCOUNTER 2022-08-18 16:49 | Observation (INO) | payer MEDICARE, MEDICAID ==
[~2022-08-18] VITALS: Ht 172.7 cm; Wt 88.0 kg
[~2022-08-18 16:49] MED LIST changes: +LORTAB 5/3255 MG PO
[2022-08-18 17:26] VITALS: BP 107/72
[2022-08-18 17:30] VITALS: BP 107/72
--- NOTE | 2022-08-18 17:30 | NUR ---
RECEIVE [facility] ADMISSION FROM DR. [place] OFFICE. PATIENT ALERT AND ORIENTED X3. REFER PAIN AND DISCOMFORT IN THE LEFT LEG. OBSERVE CELLILITIS IN THE L+LEG .PATIENT IS EDUCATED ABOUD MEDICATION, ADMISSION AND NURSING PLAN FOR TODAY. PT REFER UNDERSTAND. SAFETY AND FALL PRECAUTIONS IN PLACE. CALL LIGHT WITHIN IN REACH.
[2022-08-18 17:42] LABS: BASO% 0.3 % (0-3); EOS% 2.8 % (0-8); HEMATOCRIT 38.5 % (39.0-50.0); IMMATURE GRANULOCYTES 0.4 % (0.0-5.0); LYMPH% 27.3 % (15-41); MEAN CELL VOLUME 100.8 fL CALC (80.0-100.0); MEAN CORPUSCULAR HGB 32.5 pG CALC (26.0-32.0); MEAN CORPUSCULAR HGB CONC 32.2 g/dL CAL (32.0-36.0); MONO% 12.3 % (2-13); NEUT# 5.48 thou/uL (1.82-7.42); NEUT% 56.9 % (42-76); RED BLOOD COUNT 3.82 mill/uL (4.70-6.10); RED CELL DISTRI WIDTH 17.9 % (11.5-15.5)
[2022-08-18 17:43] LABS: HEMOGLOBIN 12.4 g/dl (14.0-18.0)
[2022-08-18 17:59] LABS: ANION GAP 14 (6-22 (CALC)); BUN 34 mg/dL (8-23); BUN/CREATININE RATIO 25 (12-20 (CALC)); CARBON DIOXIDE 28 mmol/l (22-30); CHLORIDE 102 mmol/l (95-108); CREATININE 1.4 mg/dL (0.7-1.3); GFR FOR AFR.AMER. > 60 ML/MIN (>=60 (CALC)); GFR OTHER RACES 51 ML/MIN (>=60 (CALC)); MAGNESIUM 1.8 mg/dL (1.6-2.3); POTASSIUM 3.9 mmol/l (3.5-5.1); SGOT/AST 31 u/l (19-48); SODIUM 139 mmol/l (137-146)
[2022-08-18 18:01] LABS: ALBUMIN 4.4 g/dL (3.2-5.0); ALKALINE PHOSPHATASE 302 u/l (38-126); BILIRUBIN, TOTAL 0.8 mg/dL (0.2-1.3); TOTAL PROTEIN 8.5 g/dL (6.3-8.2)
[2022-08-18 19:23] VITALS: BP 107/70
--- NOTE | 2022-08-18 19:50 | NUR ---
PATIENT INFORMED REGARDING MORPHINE ORDER PENDING VERIFICATION
--- NOTE | 2022-08-18 20:00 | NUR ---
NOTIFIED GOLF COURSE ARCHITECT REGARDING STAT ALYSIA ULTRASOUND.
[2022-08-18 20:02] VITALS: BP 107/70
--- NOTE | 2022-08-18 21:00 | NUR ---
PER COMPLIANCE MANAGER A STAT ALYSIA ULTRASOUND THAT WAS NOT PLACED IN THE ED WILL BE DONE THE FOLLOWING MORNING.
[2022-08-18 23:40] VITALS: BP 127/85
[2022-08-18 23:44] VITALS: BP 127/85
[2022-08-19] VITALS (10 sets, daily range): BP systolic 128–135; BP diastolic 85–99
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
--- NOTE | 2022-08-19 02:18 | NUR ---
VALVE ASSEMBLER NOTIFIED WRITTER OF PATIENTS DESIRE TO GO DOWN TO HIS CAR TO GET HIS MEDICINE. PATIENT NOTIFIED THAT THIS WAS NOT POSSIBLE. HE STATES HE HAS TO GET SOME VERY IMPORTANT PAPERWORK OUT OF HIS CAR, PATIENT SUGGESTED SOMEONE GO DOWN TO GET IT. INFORMED PATIENT THAT STAFF WAS NOT AUTHORIZED TO DO SO. PATIENT DENIES HAVING ANY MEDS IN HIS CAR. STATES HIS SCRIPTS FOR AMBIEN AND ROXICODONE HAVE RUN OUT AND HE WILL NOT HAVE A NEW PRESCRIPTION UNTIL WEDNESDAY.
--- NOTE | 2022-08-19 02:59 | NUR ---
PATIENT STATES HE IS IN A LOT OF PAIN, PATIENT INFORMED IT IS TOO EARLY FOR MORPHINE. PATIENT REFUSES PO MEDICATION AND STATES HE WILL WAIT.
--- NOTE | 2022-08-19 03:46 | NUR ---
PATIENT RESTING, MEDICATED FOR PAIN, SEE MAR, CALL LIGHT AND BEDSIDE TABLE WITHIN REACH.
--- NOTE | 2022-08-19 07:00 | NUR ---
RECEIVE REPORT FROM JUDITH NIX.
--- NOTE | 2022-08-19 08:00 | NUR ---
Alert and oriented patient x3. Resting in bed with eyes closed. Does not report pain or discomfort at the time of writing this note. Patient is educated aboud Medications and nursing plan for today. Patient refer understand. Safety and fall precautions in place. Call light within in reach.
--- NOTE | 2022-08-19 12:00 | NUR ---
Stable patient at the moment. Does not report pain or discomfort. Rounds every hour for patient satisfaction and prevention of falls.
--- NOTE | 2022-08-19 12:18 | NUR ---
S: ARNOLDO NAIK is a 62 M who presents with Left leg cellulitis. He has a history of CHF, HTN, CKD, HIV, sick sinus syndrome with pacemaker, DVT, chronic back pain, sleep apnea, and arthritis. All medications in patient's chart were reviewed. O: VS: BP 128/99, P 70 bpm, RR 20 bpm,T 96.6 F W 88 kg, HT 68 inches, Scr=1.4,CrCl= 57.5 ml/min A: Wound Culture is currently pending. P: Patient is on Rocephin 2g IV Q24H and received vancomycin loading dose of 1750 mg IV x1. Vancomycin ordered for pharmacy to dose. Start Vancomycin 750mg IV Q12H. Vancomycin trough is drawn before the 4th dose on 08/20/22 at 1230. Vancomycin goal trough is between 10-15 mcg/ml. Pharmacy will follow and or advise on antibiotics use as needed.
--- NOTE | 2022-08-19 16:15 | NUR ---
PATIENT STABLE AT THIS TIME. RESTING IN BED. PAIN CONTROL DONE.
--- NOTE | 2022-08-19 20:00 | NUR ---
RECEIVED REPORT FROM NURSE QUIÑONES. PATIENT ALERT ORIENTED X 4 ABLE TO MAKE NEEDS KNONW, SALINE LOCK NOTED ON TEQUILA, SALINE LOCK ON LEFT HAND OCCLUDED REMOVED. CATHETER INTACT, ON TELEMETRY PACE 70, DENIES PAIN AT THIS TIME, ACTIVE BOWEL SOUNDS, LUNG SOUNDS CLEAR, EDEMA NOTED ON LEFT LEG LOCATION OF PATIENTS OLD SKIN GRAFT, CALL LIGHT IN REACH.
--- NOTE | 2022-08-20 | NUR ---
PATIENT HAS ORDER FOR EKG DONE AND WOUND CULTURE ORDERED DONE, NOT IN DISTRESS, CALL LIGHT IN REACH.
[2022-08-20 00:08] VITALS: BP 115/85
--- NOTE | 2022-08-20 03:57 | NUR ---
RAQUEL RESTING IN BED, NO DISCOMFORTS NOTED AT THIS TIME, CALL LIGHT IN REACH.
--- NOTE | 2022-08-20 04:16 | NUR ---
RAQUEL AWAKENED, C/O PAIN ON LEFT LEG PS 8/10, PRN morphine given, call light in reach.
[2022-08-20 04:39] VITALS: BP 133/91
[2022-08-20 05:44] LABS: HEMATOCRIT 38.7 % (39.0-50.0); HEMOGLOBIN 12.2 g/dl (14.0-18.0); MEAN CELL VOLUME 105.2 fL CALC (80.0-100.0); MEAN CORPUSCULAR HGB 33.2 pG CALC (26.0-32.0); MEAN CORPUSCULAR HGB CONC 31.5 g/dL CAL (32.0-36.0); RED BLOOD COUNT 3.68 mill/uL (4.70-6.10); RED CELL DISTRI WIDTH 18.7 % (11.5-15.5)
[2022-08-20 06:02] LABS: ALKALINE PHOSPHATASE 258 u/l (38-126); ANION GAP 11 (6-22 (CALC)); BUN 22 mg/dL (8-23); BUN/CREATININE RATIO 19 (12-20 (CALC)); CARBON DIOXIDE 27 mmol/l (22-30); CHLORIDE 109 mmol/l (95-108); CREATININE 1.2 mg/dL (0.7-1.3); GFR FOR AFR.AMER. > 60 ML/MIN (>=60 (CALC)); GFR OTHER RACES > 60 ML/MIN (>=60 (CALC)); MAGNESIUM 1.8 mg/dL (1.6-2.3); POTASSIUM 4.3 mmol/l (3.5-5.1); SGOT/AST 29 u/l (19-48); SODIUM 142 mmol/l (137-146); TOTAL PROTEIN 6.8 g/dL (6.3-8.2)
[2022-08-20 06:04] LABS: ALBUMIN 3.5 g/dL (3.2-5.0); BILIRUBIN, TOTAL 0.4 mg/dL (0.2-1.3)
[2022-08-20 06:28] VITALS: BP 123/88
--- NOTE | 2022-08-20 08:24 | NUR ---
BEDSIDE SHIFT REPORT, PT SLEEPING BUT AWAKENS TO VERBAL STIMULI, ORIENTED, DENIES PAIN/DISCOMFORT, TELE MONITOR IN PLACE, CALL AVILA IN REACH AND BED LOCKED IN LOWEST POSITION. LEFT LEG ELEVATED ON PILLOWS.
[2022-08-20 09:10] VITALS: BP 119/78
[2022-08-20 10:31] VITALS: BP 116/83
[2022-08-20] MEDS ORDERED: AVIDOXY100 MG PO (11:04)
--- NOTE | 2022-08-20 12:43 | NUR ---
WHILE PT EATING MEAL HE CALLED FOR ASSISTANCE STATING MEAT IS STUCK IN HIS THROAT, HE WAS ABLE TO VERBALIZE WITH RASPY VOICE, HE WAS ENCOURAGED TO HAVE LIQUIDS WHICH HE DID BUT HE SATED HE STILL COULD FEEL THE MEAT STUCK IN HIS THROAT. X-RAY ORDERED AFTER INFORMING AUTO TUNE UP MECHANIC OF CONDITION, WILL CONTINUE TO MONITOR.
[2022-08-20 14:18] VITALS: BP 118/81
--- NOTE | 2022-08-20 16:28 | NUR ---
Discharge instructions given. Patient verbalizes understanding of same. Discharged in fair condition via Wheelchair to Home with *Other. All belongings sent with pt.
--- NOTE | 2022-08-22 14:49 | NUR ---
ATTEMPTED TO CONTACT PATIENT REGARDING WOUND CULTURE RESULTS. LEFT VOICEMAIL. NEW RX CALLED TO [facility] FOR CEPHALEXIN 500MG PO Q6H X7 DAYS.
--- NOTE | 2022-08-27 10:14 | NUR ---
Unable to reach pt by phone after mutliple attempts. Sent certified letter to address on file to notify pt of new rx.
== END 2022-08-20 16:13 | disposition home or self-care (01) ==
LOC: MS2 16:49
PROVIDERS: ADMIT Internal Medicine; ATTEND Internal Medicine
DX: T86.822 Skin graft (allograft) (autograft) infection (principal); L03.116 Cellulitis of left lower limb; I12.9 Hypertensive chronic kidney disease with stage 1 through stage 4 chronic kidney disease, or unspecified chronic kidney disease; N18.9 Chronic kidney disease, unspecified; I49.5 Sick sinus syndrome; I48.91 Unspecified atrial fibrillation; G89.29 Other chronic pain; F41.9 Anxiety disorder, unspecified; G62.9 Polyneuropathy, unspecified; F17.200 Nicotine dependence, unspecified, uncomplicated; Z21 Asymptomatic human immunodeficiency virus [HIV] infection status; Z79.899 Other long term (current) drug therapy; Z79.891 Long term (current) use of opiate analgesic; Z86.718 Personal history of other venous thrombosis and embolism; Z95.0 Presence of cardiac pacemaker; Z79.01 Long term (current) use of anticoagulants
CPT/HCPCS: J3370

== ENCOUNTER 2022-09-13 19:44 | Emergency (ER) | payer MEDICARE, MEDICAID ==
[~2022-09-13] VITALS: Ht 172.7 cm; Wt 180.0 kg
[2022-09-13] VITALS (12 sets, daily range): BP systolic 85–137; BP diastolic 68–98
[~2022-09-13 19:44] MED LIST changes: +AVIDOXY100 MG PO
[2022-09-13] MEDS ORDERED: NAPROXEN500 MG PO (22:06)
== END 2022-09-13 22:59 | disposition home or self-care (01) ==
LOC: ED 19:44
DX: M79.605 Pain in left leg (principal); I12.9 Hypertensive chronic kidney disease with stage 1 through stage 4 chronic kidney disease, or unspecified chronic kidney disease; N18.30 Chronic kidney disease, stage 3 unspecified; I48.91 Unspecified atrial fibrillation; E78.5 Hyperlipidemia, unspecified; E03.9 Hypothyroidism, unspecified; F17.200 Nicotine dependence, unspecified, uncomplicated; Z21 Asymptomatic human immunodeficiency virus [HIV] infection status; Z86.718 Personal history of other venous thrombosis and embolism; Z79.899 Other long term (current) drug therapy; Z87.81 Personal history of (healed) traumatic fracture

== ENCOUNTER 2022-10-27 16:51 | Emergency (ER) | payer MEDICARE, MEDICAID ==
[~2022-10-27] VITALS: Ht 172.7 cm; Wt 91.6 kg
[~2022-10-27 16:51] MED LIST changes: +NAPROXEN500 MG PO
[2022-10-27 17:09] VITALS: BP 97/58
[2022-10-27 17:38] VITALS: BP 88/57
[2022-10-27 17:40] LABS: BASO% 0.4 % (0-3); EOS% 4.3 % (0-8); HEMATOCRIT 36.7 % (39.0-50.0); HEMOGLOBIN 12.2 g/dl (14.0-18.0); IMMATURE GRANULOCYTES 0.4 % (0.0-5.0); LYMPH% 40.7 % (15-41); MEAN CELL VOLUME 102.5 fL CALC (80.0-100.0); MEAN CORPUSCULAR HGB 34.1 pG CALC (26.0-32.0); MEAN CORPUSCULAR HGB CONC 33.2 g/dL CAL (32.0-36.0); MONO% 10.1 % (2-13); NEUT# 3.78 thou/uL (1.82-7.42); NEUT% 44.1 % (42-76); RED BLOOD COUNT 3.58 mill/uL (4.70-6.10); RED CELL DISTRI WIDTH 19.9 % (11.5-15.5)
[2022-10-27 18:00] LABS: ALBUMIN 3.7 g/dL (3.2-5.0); C-REACTIVE PROTEIN 6.6 mg/dL (0-0.9); CREATININE 1.7 mg/dL (0.7-1.3); POTASSIUM 3.5 mmol/l (3.5-5.1)
[2022-10-27 18:14] LABS: BILIRUBIN, TOTAL 0.7 mg/dL (0.2-1.3)
[2022-10-27 18:19] VITALS: BP 95/60
[2022-10-27] MEDS ORDERED: AMBIEN10 MG PO (18:28)
[2022-10-27] MEDS ORDERED: ZYLOPRIM100 MG PO (18:35)
[2022-10-27 19:08] VITALS: BP 115/77
[2022-10-27 19:30] VITALS: BP 109/65
[2022-10-27] MEDS ORDERED: VIBRAMYCIN100 M2 PO (19:32)
[2022-10-27 19:35] VITALS: BP 109/65
== END 2022-10-27 19:40 | disposition home or self-care (01) ==
LOC: ED 16:51
PROVIDERS: Nurse Practitioner
DX: L03.115 Cellulitis of right lower limb (principal); I12.9 Hypertensive chronic kidney disease with stage 1 through stage 4 chronic kidney disease, or unspecified chronic kidney disease; N18.30 Chronic kidney disease, stage 3 unspecified; I48.91 Unspecified atrial fibrillation; E78.5 Hyperlipidemia, unspecified; E03.9 Hypothyroidism, unspecified; F17.210 Nicotine dependence, cigarettes, uncomplicated; S82.92XD Unspecified fracture of left lower leg, subsequent encounter for closed fracture with routine healing; X58.XXXD Exposure to other specified factors, subsequent encounter; Z21 Asymptomatic human immunodeficiency virus [HIV] infection status; Z86.718 Personal history of other venous thrombosis and embolism; Z79.899 Other long term (current) drug therapy; M79.604 Pain in right leg; M79.89 Other specified soft tissue disorders

== ENCOUNTER 2023-02-16 13:33 | Emergency (ER) | payer MEDICARE, MEDICAID ==
[2023-02-16] VITALS (16 sets, daily range): BP systolic 122–153; BP diastolic 86–102
[~2023-02-16] VITALS: Ht 172.7 cm; Wt 81.0 kg
[~2023-02-16 13:33] MED LIST changes: +AMBIEN10 MG PO; +PERCOCET 5/321 COMBO PO; +ZYLOPRIM100 MG PO
[2023-02-16 14:52] LABS: BASO% 0.5 % (0-3); EOS% 1.5 % (0-8); HEMOGLOBIN 13.8 g/dl (14.0-18.0); LYMPH% 29.9 % (15-41); MEAN CELL VOLUME 103.1 fL CALC (80.0-100.0); MEAN CORPUSCULAR HGB 33.1 pG CALC (26.0-32.0); MEAN CORPUSCULAR HGB CONC 32.1 g/dL CAL (32.0-36.0); MONO% 15.1 % (2-13); NEUT# 3.98 thou/uL (1.82-7.42); RED BLOOD COUNT 4.17 mill/uL (4.70-6.10); RED CELL DISTRI WIDTH 16.6 % (11.5-15.5)
[2023-02-16 14:54] LABS: URINE BILIRUBIN - DIPSTICK Negative (NEGATIVE); URINE BLOOD DIPSTICK Negative (NEGATIVE); URINE GLUCOSE - DIPSTICK Negative (NEGATIVE); URINE KETONE Negative (NEGATIVE); URINE LEUK ESTERASE Negative (NEGATIVE); URINE NITRITE - DIPSTICK Negative (Negative); URINE PROTEIN - DIPSTICK Negative (NEG-TRACE); URINE SPECIFIC GRAVITY 1.015; URINE UROBILINOGEN - DIPSTICK 0.2 E.U./dL (0.2)
[2023-02-16 14:55] LABS: URINE COLOR Yellow
[2023-02-16 15:11] LABS: ALBUMIN 4.5 g/dL (3.2-5.0); ALKALINE PHOSPHATASE 203 u/l (38-126); ANION GAP 14 (6-22 (CALC)); BILIRUBIN, TOTAL 0.6 mg/dL (0.2-1.3); BUN 25 mg/dL (8-23); BUN/CREATININE RATIO 17 (12-20 (CALC)); CARBON DIOXIDE 27 mmol/l (22-30); CHLORIDE 106 mmol/l (95-108); CREATININE 1.4 mg/dL (0.7-1.3); GFR FOR AFR.AMER. > 60 ML/MIN (>=60 (CALC)); GFR OTHER RACES 51 ML/MIN (>=60 (CALC)); LIPASE 116 u/l (23-300); POTASSIUM 4.4 mmol/l (3.5-5.1); SGOT/AST 29 u/l (19-48); SODIUM 143 mmol/l (137-146); TOTAL PROTEIN 8.1 g/dL (6.3-8.2)
[2023-02-16] MEDS ORDERED: PERCOCET 5/321 COMBO PO (18:27)
[2023-02-16] MEDS ORDERED: PROTONIX40 MG PO (18:29)
== END 2023-02-16 18:55 | disposition home or self-care (01) ==
LOC: ED 13:33
PROVIDERS: Emergency Medicine
DX: G89.29 Other chronic pain (principal); R10.10 Upper abdominal pain, unspecified; I12.9 Hypertensive chronic kidney disease with stage 1 through stage 4 chronic kidney disease, or unspecified chronic kidney disease; N18.30 Chronic kidney disease, stage 3 unspecified; I48.91 Unspecified atrial fibrillation; E78.5 Hyperlipidemia, unspecified; E03.9 Hypothyroidism, unspecified; D63.8 Anemia in other chronic diseases classified elsewhere; F17.210 Nicotine dependence, cigarettes, uncomplicated; Z21 Asymptomatic human immunodeficiency virus [HIV] infection status; Z79.899 Other long term (current) drug therapy; Z86.718 Personal history of other venous thrombosis and embolism; Z90.49 Acquired absence of other specified parts of digestive tract; Z79.891 Long term (current) use of opiate analgesic
CPT/HCPCS: Q9967

== ENCOUNTER 2023-08-25 08:35 | Observation (INO) | payer MEDICARE, MEDICAID ==
[~2023-08-25] VITALS: Ht 172.7 cm; Wt 86.4 kg
[2023-08-25] VITALS (31 sets, daily range): BP systolic 52–139; BP diastolic 35–93
[~2023-08-25 08:35] MED LIST changes: +APAP PO; +LASIX 20 MG TAB20 MG PO; +OXYCOD PO; +PROTONIX40 MG PO; +VITAMIN D-32000 UNI1 PO
[2023-08-25] MEDS ORDERED: LIDOcaine HCl 1% (Local Anesth.) 20 ML VIAL STI STA (08:51)
[2023-08-25] MEDS ORDERED: Diph, Acellular Pertussis, Tet 0.5 ML/VIAL (Tdap) SDV IM ONE (08:55)
[2023-08-25] MEDS ORDERED: POVIDONE IODINE 0.5 OZ/BTL TOP ONE (08:55)
[2023-08-25 09:07] LABS: BASO% 0.2 % (0-3); EOS% 1.2 % (0-8); HEMATOCRIT 44.6 % (39.0-50.0); HEMOGLOBIN 14.1 g/dl (14.0-18.0); IMMATURE GRANULOCYTES 0.8 % (0.0-5.0); LYMPH% 34.9 % (15-41); MEAN CELL VOLUME 105.4 fL CALC (80.0-100.0); MEAN CORPUSCULAR HGB 33.3 pG CALC (26.0-32.0); MEAN CORPUSCULAR HGB CONC 31.6 g/dL CAL (32.0-36.0); MONO% 7.5 % (2-13); NEUT# 7.31 thou/uL (1.82-7.42); NEUT% 55.4 % (42-76); RED BLOOD COUNT 4.23 mill/uL (4.70-6.10); RED CELL DISTRI WIDTH 16.1 % (11.5-15.5)
[2023-08-25 09:28] LABS: INTERNATIONAL NORMALIZED RATIO 1.3 RATIO (0.7-1.3)
[2023-08-25 09:29] LABS: ALBUMIN 4.2 g/dL (3.2-5.0); ALKALINE PHOSPHATASE 101 u/l (38-126); BILIRUBIN, TOTAL 0.7 mg/dL (0.2-1.3); BUN 40 mg/dL (8-23); CALCULATED LDLCHOLESTEROL 86 mg/dL (62-129 (CALC)); CARBON DIOXIDE 29 mmol/l (22-30); CHLORIDE 100 mmol/l (95-108); HDL CHOLESTEROL 41 mg/dL (39.0-59.0); PROTHROMBIN TIME 12.5 SECONDS (9.0-12.5); SGOT/AST 30 u/l (19-48); SODIUM 138 mmol/l (137-146); TOTAL CHOLESTEROL 166 mg/dl (0-199); TOTAL TRIGLYCERIDES 194 mg/dl (0-149); VLDL CHOLESTROL 39 mg/dl (4-45 (CALC))
[2023-08-25 09:31] LABS: ANION GAP 12 (6-22 (CALC)); BUN/CREATININE RATIO 16 (12-20 (CALC)); CREATININE 2.5 mg/dL (0.7-1.3); ESTIMATED GFR 28 ML/MIN (>=90 (CALC))
[2023-08-25] MEDS ORDERED: SODIUM CHLORIDE 0.9% 1,000 ML IV ONE (09:40)
[2023-08-25] MEDS ORDERED: OMNICEF300 MG PO (11:34)
[2023-08-25] MEDS ORDERED: MORPHINE SULFATE 4 MG/ML VIAL IV ONE ×2 (11:35→12:45)
[2023-08-25] MEDS ORDERED: POTASSIUM CHLORIDE 20 MEQ/TAB PO ONE (12:35)
[2023-08-25] MEDS ORDERED: DEXTROSE 250 ML IV PRN (14:50)
[2023-08-25] MEDS ORDERED: oxyCODONE HCL ER 10 MG/TAB PO ONE (16:20)
[2023-08-25] MEDS ORDERED: oxyCODONE 5MG/ ACETAMINOPHEN 325MG TAB PO PRN (16:20)
[2023-08-25] MEDS ORDERED: oxyCODONE HCL 5 MG/TAB PO ONE (16:20)
[2023-08-25] MEDS ORDERED: ALPRAZolam 0.5 MG/TAB PO PRN (16:50)
[2023-08-25] MEDS ORDERED: RIVAROXABAN 15 MG TAB PO SCH (17:30)
[2023-08-25] MEDS ORDERED: QUEtiapine FUMERATE 25 MG/TAB PO SCH (21:00)
[2023-08-26] VITALS (20 sets, daily range): BP systolic 57–136; BP diastolic 38–115
[2023-08-26 05:29] LABS: BILIRUBIN, TOTAL 0.6 mg/dL (0.2-1.3); CREATININE 2.1 mg/dL (0.7-1.3); MAGNESIUM 1.3 mg/dL (1.6-2.3); POTASSIUM 3.6 mmol/l (3.5-5.1)
[2023-08-26 05:38] LABS: ALBUMIN 3.1 g/dL (3.2-5.0); TOTAL PROTEIN 6.2 g/dL (6.3-8.2)
[2023-08-26 05:45] LABS: BASO% 0.3 % (0-3); EOS% 1.7 % (0-8); HEMATOCRIT 40.7 % (39.0-50.0); HEMOGLOBIN 13.3 g/dl (14.0-18.0); IMMATURE GRANULOCYTES 0.7 % (0.0-5.0); LYMPH% 45.2 % (15-41); MEAN CELL VOLUME 104.4 fL CALC (80.0-100.0); MEAN CORPUSCULAR HGB 34.1 pG CALC (26.0-32.0); MEAN CORPUSCULAR HGB CONC 32.7 g/dL CAL (32.0-36.0); MONO% 9.2 % (2-13); NEUT# 4.23 thou/uL (1.82-7.42); NEUT% 42.9 % (42-76); RED BLOOD COUNT 3.9 mill/uL (4.70-6.10); RED CELL DISTRI WIDTH 16.1 % (11.5-15.5)
[2023-08-26] MEDS ORDERED: LEVOTHYROXINE SODIUM 88 MCG TAB PO SCH (06:00)
[2023-08-26 06:23] LABS: URINE BILIRUBIN - DIPSTICK Negative (NEGATIVE); URINE BLOOD DIPSTICK Negative (NEGATIVE); URINE GLUCOSE - DIPSTICK Negative (NEGATIVE); URINE KETONE Negative (NEGATIVE); URINE LEUK ESTERASE Negative (NEGATIVE); URINE NITRITE - DIPSTICK Negative (Negative); URINE PROTEIN - DIPSTICK Negative (NEG-TRACE); URINE SPECIFIC GRAVITY <=1.005; URINE UROBILINOGEN - DIPSTICK 0.2 E.U./dL (0.2)
[2023-08-26 06:26] LABS: URINE COLOR Yellow
[2023-08-26] MEDS ORDERED: ATENOLOL 50 MG/TAB PO SCH (09:00)
[2023-08-26] MEDS ORDERED: FUROSEMIDE 40 MG/TAB PO SCH (09:00)
[2023-08-26] MEDS ORDERED: PATIENT' OWN MED 1 EA DOSE PO PRN (09:25)
[2023-08-27] VITALS (9 sets, daily range): BP systolic 84–111; BP diastolic 55–79
[2023-08-27 06:45] LABS: BASO% 0.3 % (0-3); EOS% 1.8 % (0-8); HEMATOCRIT 39.1 % (39.0-50.0); HEMOGLOBIN 12.6 g/dl (14.0-18.0); IMMATURE GRANULOCYTES 0.6 % (0.0-5.0); LYMPH% 40.4 % (15-41); MEAN CELL VOLUME 104.5 fL CALC (80.0-100.0); MEAN CORPUSCULAR HGB 33.7 pG CALC (26.0-32.0); MEAN CORPUSCULAR HGB CONC 32.2 g/dL CAL (32.0-36.0); MONO% 8.7 % (2-13); NEUT# 4.78 thou/uL (1.82-7.42); NEUT% 48.2 % (42-76); RED BLOOD COUNT 3.74 mill/uL (4.70-6.10); RED CELL DISTRI WIDTH 15.8 % (11.5-15.5)
[2023-08-27 07:08] LABS: ALBUMIN 3.1 g/dL (3.2-5.0); BILIRUBIN, TOTAL 0.4 mg/dL (0.2-1.3); CREATININE 1.9 mg/dL (0.7-1.3); MAGNESIUM 1.3 mg/dL (1.6-2.3); POTASSIUM 3.2 mmol/l (3.5-5.1); TOTAL PROTEIN 6.1 g/dL (6.3-8.2)
[2023-08-27] MEDS ORDERED: MORPHINE SULFATE 4 MG/ML VIAL IV PRN (09:40)
== END 2023-08-27 17:38 | disposition home health service (06) ==
LOC: ED 08:35 → ED-I 09:24 → ED 09:24 → ED-I 12:20 → ED 13:21 → ICU 13:22
PROVIDERS: Family Medicine; ADMIT Student in an Organized Health Care Education/Training Program; ATTEND Student in an Organized Health Care Education/Training Program
PROC: 0HQ1XZZ Repair Face Skin, External Approach (ICD-10-PCS; principal; 2023-08-25)
DX: R42 Dizziness and giddiness (principal); S01.111A Laceration without foreign body of right eyelid and periocular area, initial encounter; M25.552 Pain in left hip; M25.562 Pain in left knee; I95.9 Hypotension, unspecified; N17.9 Acute kidney failure, unspecified; I13.0 Hypertensive heart and chronic kidney disease with heart failure and stage 1 through stage 4 chronic kidney disease, or unspecified chronic kidney disease; N18.30 Chronic kidney disease, stage 3 unspecified; I50.9 Heart failure, unspecified; I25.10 Atherosclerotic heart disease of native coronary artery without angina pectoris; J44.9 Chronic obstructive pulmonary disease, unspecified; G62.9 Polyneuropathy, unspecified; D64.9 Anemia, unspecified; F17.200 Nicotine dependence, unspecified, uncomplicated; Q60.0 Renal agenesis, unilateral; E66.9 Obesity, unspecified; Z68.28 Body mass index [BMI] 28.0-28.9, adult; W19.XXXA Unspecified fall, initial encounter; Z79.01 Long term (current) use of anticoagulants; Z86.718 Personal history of other venous thrombosis and embolism; Z95.0 Presence of cardiac pacemaker; Z21 Asymptomatic human immunodeficiency virus [HIV] infection status; Z96.652 Presence of left artificial knee joint; Z79.899 Other long term (current) drug therapy

== ENCOUNTER 2023-11-04 09:57 | Observation (INO) | payer MEDICARE ==
[~2023-11-04] VITALS: Ht 172.7 cm; Wt 90.0 kg
[2023-11-04] VITALS (35 sets, daily range): BP systolic 77–144; BP diastolic 43–96
[~2023-11-04 09:57] MED LIST changes: +OMNICEF300 MG PO
[2023-11-04] MEDS ORDERED: Diph, Acellular Pertussis, Tet 0.5 ML/VIAL (Tdap) SDV IM ONE (10:10)
[2023-11-04] MEDS ORDERED: SILVER SULFADIAZINE 50 GM/TUBE EA TOP ONE (10:10)
[2023-11-04] MEDS ORDERED: SILVER SULFA1 % EX (10:21)
[2023-11-04] MEDS ORDERED: ACETAMINOPHEN 500 MG TAB PO ONE (10:25)
[2023-11-04 10:33] LABS: BASO% 0.8 % (0-3); EOS% 4.8 % (0-8); HEMATOCRIT 37.3 % (39.0-50.0); IMMATURE GRANULOCYTES 0.6 % (0.0-5.0); LYMPH% 50.8 % (15-41); MEAN CELL VOLUME 101.1 fL CALC (80.0-100.0); MEAN CORPUSCULAR HGB 32.5 pG CALC (26.0-32.0); MEAN CORPUSCULAR HGB CONC 32.2 g/dL CAL (32.0-36.0); MONO% 13.7 % (2-13); NEUT# 2.1 thou/uL (1.82-7.42); NEUT% 29.3 % (42-76); RED BLOOD COUNT 3.69 mill/uL (4.70-6.10); RED CELL DISTRI WIDTH 17.5 % (11.5-15.5)
[2023-11-04 10:53] LABS: ALBUMIN 3.9 g/dL (3.2-5.0); ALKALINE PHOSPHATASE 186 u/l (38-126); ANION GAP 11 (6-22 (CALC)); BUN 16 mg/dL (8-23); BUN/CREATININE RATIO 9 (12-20 (CALC)); CARBON DIOXIDE 29 mmol/l (22-30); CHLORIDE 104 mmol/l (95-108); CREATININE 1.7 mg/dL (0.7-1.3); ESTIMATED GFR 44 ML/MIN (>=90 (CALC)); POTASSIUM 3.5 mmol/l (3.5-5.1); SGOT/AST 31 u/l (19-48); SODIUM 141 mmol/l (137-146); TOTAL PROTEIN 7.6 g/dL (6.3-8.2)
[2023-11-04 10:54] LABS: BILIRUBIN, TOTAL 0.4 mg/dL (0.2-1.3)
[2023-11-04] MEDS ORDERED: SODIUM CHLORIDE 0.9% 1,000 ML IV ONE (11:10)
[2023-11-04 13:25] LABS: URINE BILIRUBIN - DIPSTICK Negative (NEGATIVE); URINE BLOOD DIPSTICK Negative (NEGATIVE); URINE GLUCOSE - DIPSTICK Negative (NEGATIVE); URINE KETONE Negative (NEGATIVE); URINE LEUK ESTERASE Negative (NEGATIVE); URINE NITRITE - DIPSTICK Negative (Negative); URINE PH 5.5 (4.5-8.0); URINE PROTEIN - DIPSTICK Negative (NEG-TRACE); URINE SPECIFIC GRAVITY <=1.005; URINE UROBILINOGEN - DIPSTICK 0.2 E.U./dL (0.2)
[2023-11-04 13:44] LABS: URINE COLOR Yellow
[2023-11-04] MEDS ORDERED: ACETAMINOPHEN 325 MG/TAB PO PRN (14:20)
[2023-11-04] MEDS ORDERED: SODIUM CHLORIDE 0.9% 1,000 ML IV PRN (14:20)
[2023-11-04] MEDS ORDERED: MAGNESIUM HYDROXIDE 30 ML UDC PO PRN (14:20)
[2023-11-04] MEDS ORDERED: MORPHINE SUL15 MG PO (15:49)
[2023-11-04] MEDS ORDERED: PREGABALIN 100 MG/CAP PO SCH ×2 (16:14→17:00)
[2023-11-04] MEDS ORDERED: MORPHINE SULFATE ER 15 MG/TAB PO PRN (16:40)
[2023-11-04] MEDS ORDERED: MORPHINE SULFATE 4 MG/ML VIAL IV PRN (16:40)
[2023-11-04] MEDS ORDERED: ALPRAZolam 0.5 MG/TAB PO PRN (16:45)
[2023-11-04] MEDS ORDERED: Zaleplon 5 MG/CAP PO PRN (16:45)
[2023-11-04] MEDS ORDERED: NICOTINE TRANSDERMAL 21 MG/PATCH TD SCH (17:00)
[2023-11-04] MEDS ORDERED: QUEtiapine FUMERATE 25 MG/TAB PO SCH (21:00)
[2023-11-04] MEDS ORDERED: SILVER SULFADIAZINE 50 GM/TUBE EA EX SCH (21:00)
[2023-11-04] MEDS ORDERED: SILVER SULFADIAZINE 400 GM JAR TOP SCH (21:00)
[2023-11-04] MEDS ORDERED: Heparin SODIUM (Porcine) 5,000 UNITS/ML SDV SC SCH (22:00)
[2023-11-05] VITALS (11 sets, daily range): BP systolic 87–123; BP diastolic 42–85
[2023-11-05 05:46] LABS: BASO% 0.7 % (0-3); EOS% 5.2 % (0-8); HEMATOCRIT 36.8 % (39.0-50.0); HEMOGLOBIN 11.7 g/dl (14.0-18.0); IMMATURE GRANULOCYTES 0.1 % (0.0-5.0); LYMPH% 35.7 % (15-41); MEAN CELL VOLUME 103.4 fL CALC (80.0-100.0); MEAN CORPUSCULAR HGB 32.9 pG CALC (26.0-32.0); MEAN CORPUSCULAR HGB CONC 31.8 g/dL CAL (32.0-36.0); MONO% 11.7 % (2-13); NEUT# 3.52 thou/uL (1.82-7.42); NEUT% 46.6 % (42-76); RED BLOOD COUNT 3.56 mill/uL (4.70-6.10); RED CELL DISTRI WIDTH 17.8 % (11.5-15.5)
[2023-11-05 05:55] LABS: BILIRUBIN, TOTAL 0.3 mg/dL (0.2-1.3); CREATININE 1.6 mg/dL (0.7-1.3); MAGNESIUM 1.4 mg/dL (1.6-2.3); TOTAL PROTEIN 6.1 g/dL (6.3-8.2)
[2023-11-05] MEDS ORDERED: LEVOTHYROXINE SODIUM 88 MCG TAB PO SCH (06:00)
[2023-11-05] MEDS ORDERED: PANTOPRAZOLE SODIUM Sesquihydr 40 MG/TAB PO SCH (09:00)
[2023-11-05] MEDS ORDERED: FUROSEMIDE 40 MG/TAB PO SCH (09:00)
[2023-11-05] MEDS ORDERED: ALLOPURINOL 100 MG/TAB PO SCH (09:00)
[2023-11-05] MEDS ORDERED: ATENOLOL 50 MG/TAB PO SCH (09:00)
[2023-11-05] MEDS ORDERED: MONTELUKAST SODIUM 10 MG/TAB PO SCH (09:00)
[2023-11-05] MEDS ORDERED: RIVAROXABAN 20 MG TAB PO SCH (09:00)
[2023-11-05] MEDS ORDERED: MAGNESIUM SULFATE HEPTAHYDRATE 100 ML IV SCH (09:00)
[2023-11-05] MEDS ORDERED: DULOXETINE HCl 30 MG/CAP PO SCH (09:00)
[2023-11-05] MEDS ORDERED: DOXYCYCLINE HYCLATE 100 MG in SODIUM CHLORIDE 0.9% 100 ML IV SCH (12:00)
[2023-11-06 00:15] VITALS: BP 111/72
[2023-11-06 04:53] VITALS: BP 118/81
[2023-11-06 04:59] LABS: BASO% 0.4 % (0-3); EOS% 3.6 % (0-8); HEMATOCRIT 37.7 % (39.0-50.0); HEMOGLOBIN 11.9 g/dl (14.0-18.0); IMMATURE GRANULOCYTES 0.1 % (0.0-5.0); LYMPH% 20.7 % (15-41); MEAN CELL VOLUME 103.3 fL CALC (80.0-100.0); MEAN CORPUSCULAR HGB 32.6 pG CALC (26.0-32.0); MEAN CORPUSCULAR HGB CONC 31.6 g/dL CAL (32.0-36.0); MONO% 11.7 % (2-13); NEUT# 4.45 thou/uL (1.82-7.42); NEUT% 63.5 % (42-76); RED BLOOD COUNT 3.65 mill/uL (4.70-6.10); RED CELL DISTRI WIDTH 18.1 % (11.5-15.5)
[2023-11-06 05:08] LABS: ALBUMIN 2.8 g/dL (3.2-5.0); BILIRUBIN, TOTAL 0.3 mg/dL (0.2-1.3); CREATININE 1.3 mg/dL (0.7-1.3); TOTAL PROTEIN 5.8 g/dL (6.3-8.2)
[2023-11-06 07:47] VITALS: BP 108/71
[2023-11-06] MEDS ORDERED: DOXYCYCLINE100 MG PO (11:10)
[2023-11-06 11:16] VITALS: BP 131/94
== END 2023-11-06 13:30 ==
LOC: ED 09:57 → ED-I 11:14 → ED 14:30 → MS2 14:31
PROVIDERS: Family Medicine; Nurse Practitioner Family; ADMIT Internal Medicine; ATTEND Internal Medicine
PROC: 2W2MX4Z Dressing of Left Lower Extremity using Bandage (ICD-10-PCS; principal; 2023-11-04)
DX: I95.1 Orthostatic hypotension (principal); T24.202A Burn of second degree of unspecified site of left lower limb, except ankle and foot, initial encounter; S00.03XA Contusion of scalp, initial encounter; N17.9 Acute kidney failure, unspecified; I13.0 Hypertensive heart and chronic kidney disease with heart failure and stage 1 through stage 4 chronic kidney disease, or unspecified chronic kidney disease; I50.9 Heart failure, unspecified; N18.30 Chronic kidney disease, stage 3 unspecified; I25.10 Atherosclerotic heart disease of native coronary artery without angina pectoris; G62.9 Polyneuropathy, unspecified; G47.30 Sleep apnea, unspecified; Q60.0 Renal agenesis, unilateral; G89.4 Chronic pain syndrome; K21.9 Gastro-esophageal reflux disease without esophagitis; F17.200 Nicotine dependence, unspecified, uncomplicated; Y93.G3 Activity, cooking and baking; X10.1XXA Contact with hot food, initial encounter; W18.39XA Other fall on same level, initial encounter; Y92.000 Kitchen of unspecified non-institutional (private) residence as the place of occurrence of the external cause; Z21 Asymptomatic human immunodeficiency virus [HIV] infection status; Z79.01 Long term (current) use of anticoagulants; Z87.81 Personal history of (healed) traumatic fracture; Z86.718 Personal history of other venous thrombosis and embolism
CPT/HCPCS: J3475

== ENCOUNTER 2023-11-23 16:07 | Observation (INO) | payer MEDICARE ==
[2023-11-23] VITALS (37 sets, daily range): BP systolic 67–148; BP diastolic 48–95
[~2023-11-23] VITALS: Ht 172.7 cm; Wt 87.8 kg
[~2023-11-23 16:07] MED LIST changes: +DOXYCYCLINE100 MG PO; +MORPHINE SUL15 MG PO; +SILVER SULFA1 % EX
--- NOTE | 2023-11-23 16:07 | NUR ---
PATIENT TO ROOM 8 VIA WHEELCHAIR. TRIAGE COMPLETED AT BEDSIDE.
[2023-11-23] MEDS ORDERED: SODIUM CHLORIDE 0.9% 1,000 ML IV ONE ×2 (16:35→18:55)
[2023-11-23 16:49] LABS: BASO% 0.4 % (0-3); EOS% 3.4 % (0-8); HEMATOCRIT 36.9 % (39.0-50.0); HEMOGLOBIN 11.6 g/dl (14.0-18.0); IMMATURE GRANULOCYTES 0.1 % (0.0-5.0); LYMPH% 54.5 % (15-41); MEAN CELL VOLUME 102.2 fL CALC (80.0-100.0); MEAN CORPUSCULAR HGB 32.1 pG CALC (26.0-32.0); MEAN CORPUSCULAR HGB CONC 31.4 g/dL CAL (32.0-36.0); MONO% 9.2 % (2-13); NEUT# 2.31 thou/uL (1.82-7.42); NEUT% 32.4 % (42-76); RED BLOOD COUNT 3.61 mill/uL (4.70-6.10); RED CELL DISTRI WIDTH 18.7 % (11.5-15.5)
[2023-11-23 17:01] LABS: ALKALINE PHOSPHATASE 153 u/l (38-126); BUN 17 mg/dL (8-23); BUN/CREATININE RATIO 9 (12-20 (CALC)); CHLORIDE 108 mmol/l (95-108); ESTIMATED GFR 36 ML/MIN (>=90 (CALC)); POTASSIUM 3.5 mmol/l (3.5-5.1); SGOT/AST 34 u/l (19-48); SODIUM 140 mmol/l (137-146)
[2023-11-23 17:02] LABS: ANION GAP 14 (6-22 (CALC)); BILIRUBIN, TOTAL 0.8 mg/dL (0.2-1.3); CARBON DIOXIDE 22 mmol/l (22-30); TOTAL PROTEIN 7.5 g/dL (6.3-8.2)
--- NOTE | 2023-11-23 17:10 | NUR ---
Reassessment of patient completed. No distress noted.
--- NOTE | 2023-11-23 17:53 | NUR ---
PT RETURNED FROM CT VIA [facility]. NO NEEDS VOICED.
--- NOTE | 2023-11-23 19:00 | NUR ---
RECIEVED REPORT FROM DINAH NORWOOD AT THIS TIME, NAD NOTED, B/P OF 90S AT THIS TIME, PT MEDICATED PER ORDERS, IVF RUNNING, PT URINE COLLECTED BY URINAL AT THIS TIME, PT REMAINS A&OX4, VOICES H/A AND LLE PAIN AT THIS TIME, NOTIFIED OF PT STATUS, AWAITING ALL FURTHER ORDERS/RESULTS.
--- NOTE | 2023-11-23 19:00 | NUR ---
REPORT TO DONNIE NIX
[2023-11-23 19:26] LABS: URINE BILIRUBIN - DIPSTICK Negative (NEGATIVE); URINE BLOOD DIPSTICK Negative (NEGATIVE); URINE GLUCOSE - DIPSTICK Negative (NEGATIVE); URINE KETONE Negative (NEGATIVE); URINE LEUK ESTERASE Negative (NEGATIVE); URINE NITRITE - DIPSTICK Negative (Negative); URINE PH 6.5 (4.5-8.0); URINE PROTEIN - DIPSTICK Negative (NEG-TRACE); URINE UROBILINOGEN - DIPSTICK 0.2 E.U./dL (0.2)
[2023-11-23 19:30] LABS: URINE COLOR Yellow
--- NOTE | 2023-11-23 20:15 | NUR ---
ORTHOSTATIC B/P; SUPINE- 105/70 70 SITTING- 118/79 72 STANDING- 116/84 70
--- NOTE | 2023-11-23 20:18 | NUR ---
MD AT BEDSIDE, ORTHOSTATIC B/P COMPLETE, PT UPDATED ON CONTINUOUS PLAN OF CARE WITH NO FURTHER QUESTIONS OR CONCERNS, C/O PAIN TO MD AKHIL AWARE.
[2023-11-23] MEDS ORDERED: MORPHINE SULFATE 4 MG/ML VIAL IV ONE (20:25)
[2023-11-23] MEDS ORDERED: SODIUM CHLORIDE 0.9% 500 ML BAG IV ONE (20:30)
--- NOTE | 2023-11-23 21:15 | NUR ---
PT REASSESED, VOICES PAIN IS TOLERABLE AT THIS TIME, PT VSS, B/P STABLE, AWAITING ALL FURTHER ORDERS/RESULTS.
--- NOTE | 2023-11-23 22:30 | NUR ---
MD REQUESTS PT DO WALK TEST TO ASSESS GAIT AND DIZZINESS, ADVANCED DEVELOPER AT BEDSIDE ATTEMPTED TO WALK PT AT THIS TIME, NOTED UNSTEADY AND VOICES MINIMAL DIZZINESS AT THIS TIME, MD NOTIFIED, VOICES PT WILL BE ADMITTED AT THIS TIME, AWAITING ALL FURTHER ORDERS/RESULTS.
--- NOTE | 2023-11-23 23:45 | NUR ---
PT C/O H/A AT THIS TIME, MD NOTIFIED, AWAITING ALL FURTHER RESULTS/ORDERS, NAD NOTED, VSS, LIGHTS DIMMED FOR PT COMFORT, WILL CONTINUE TO MONITOR.
[2023-11-24] VITALS (13 sets, daily range): BP systolic 99–142; BP diastolic 69–88
[2023-11-24] MEDS ORDERED: ACETAMINOPHEN 325 MG/TAB PO PRN (01:10)
--- NOTE | 2023-11-24 01:10 | NUR ---
REPORT GIVEN TO Rossy VILLASEÑOR LPN ON MS2 AT THIS TIME.
--- NOTE | 2023-11-24 01:30 | NUR ---
PT TRANSPORTED TO [facility] AT THIS TIME VIA W/C AT THIS TIME, PT VOICES APPRECIATION OF CARE, NURSE/CEMENT MASON APPRENTICE AT BEDSIDE.
--- NOTE | 2023-11-24 02:00 | NUR ---
REPORT RECEIVED FROM ED NURSE DONNIE NIX. PT TRANSPORTED TO MED SURG ROOM 270 @ 0130 WITH ED STAFF X1 VIA WC. PT IS A&OX3, AND ABLE TO MAKE NEEDS. PT COMPLAINING OF PAIN 4-10 IN HEAD AND LOWER EXTREMITIES. TYLENOL OFFERED, PT REFUSED AT THIS TIME. ADMISSION/ASSESSMENT COMPLETED AT THIS TIME. IV SITE CLEAN AND INTACT, FLUSHING WELL. PT REFUSING KEVON HOSE AT THIS TIME. ABRASION NOTED TO (L) KNEE, PICTURE OBTAINED, SEE CHART. BED ALARM ON AT THIS TIME. DRESSING NOTED TO (L) LOWER EXTREMITY, PT STATES THAT HE HAS HOME HEALTH, AND THE DRESSING WAS CHANGED TODAY. PT REFUSING TO LET HONING MACHINE OPERATOR PRODUCTION TAKE DRESSING OFF TO ASSESS WOUND OR OBTAIN PICTURE. DRESSING CDI. PT IS ON ROOM AIR. TELE MONITOR IN PLACE. SCAB NOTED ON CENTER OF BACK OF HEAD. LUNG SOUDNS CLEAR UPON AUSCULTATION. BOWEL SOUNDS ACTIVE X4 QUADRANTS, PT STATES THAT HIS LAST BM WAS ON 24. NO S&S OF DISTRESS NOTED. VSS. PT EDUCATED ON POC AND MEDICATION SCHEDULE. CALL LIGHT IN REACH, AND SAFETY PRECAUTIONS IN PLACE.
[2023-11-24] MEDS ORDERED: MORPHINE SULFATE 4 MG/ML VIAL IV PRN (02:10)
[2023-11-24] MEDS ORDERED: SODIUM CHLORIDE 0.9% 100 ML IV ONE (02:10)
[2023-11-24] MEDS ORDERED: SODIUM CHLORIDE 0.45% 1,000 ML IV ONE (02:20)
[2023-11-24] MEDS ORDERED: SODIUM CHLORIDE 0.45% 1,000 ML IV PRN (03:30)
--- NOTE | 2023-11-24 04:05 | NUR ---
PT RESTING IN BED WATCHING TELEVISION. PT DOES NOT OFFER ANY COMPLAINTS AT THIS TIME. NO S&S OF DISTRESS NOTED. TELE MONITOR REMAINS IN PLACE. BED ALARM REMAINS ON. CALL LIGHT IN REACH, AND SAFETY PRECAUTIONS IN PLACE.
--- NOTE | 2023-11-24 07:00 | NUR ---
RECEIVED BEDSIDE REPORT FROM DUKE RESTREPO. PT LYING IN BED WITH EYES CLOSED. ALL SAFETY MEASURES IN PLACE AND FUNCTIONING PROPERLY. VSS. NO NEEDS ATTHIS TIME.
[2023-11-24] MEDS ORDERED: ALLOPURINOL 100 MG/TAB PO SCH (11:00)
[2023-11-24] MEDS ORDERED: RIVAROXABAN 20 MG TAB PO SCH (11:00)
[2023-11-24] MEDS ORDERED: DULOXETINE HCl 30 MG/CAP PO SCH (11:00)
[2023-11-24] MEDS ORDERED: MONTELUKAST SODIUM 10 MG/TAB PO SCH (11:00)
[2023-11-24] MEDS ORDERED: QUEtiapine FUMERATE 25 MG/TAB PO SCH (21:00)
[2023-11-25] MEDS ORDERED: LEVOTHYROXINE SODIUM 88 MCG TAB PO SCH (06:00)
== END 2023-11-24 14:26 ==
LOC: ED 16:07 → ED-I 23:30 → ED 11-24 00:09 → MS2 11-24 00:10
PROVIDERS: Family Medicine; ADMIT Student in an Organized Health Care Education/Training Program; ATTEND Student in an Organized Health Care Education/Training Program
DX: I95.1 Orthostatic hypotension (principal); I13.0 Hypertensive heart and chronic kidney disease with heart failure and stage 1 through stage 4 chronic kidney disease, or unspecified chronic kidney disease; I50.9 Heart failure, unspecified; N18.30 Chronic kidney disease, stage 3 unspecified; I25.10 Atherosclerotic heart disease of native coronary artery without angina pectoris; J44.9 Chronic obstructive pulmonary disease, unspecified; S80.212A Abrasion, left knee, initial encounter; S00.01XA Abrasion of scalp, initial encounter; J32.0 Chronic maxillary sinusitis; Q60.0 Renal agenesis, unilateral; F17.210 Nicotine dependence, cigarettes, uncomplicated; W18.39XA Other fall on same level, initial encounter; Y92.000 Kitchen of unspecified non-institutional (private) residence as the place of occurrence of the external cause; Z21 Asymptomatic human immunodeficiency virus [HIV] infection status; Z79.899 Other long term (current) drug therapy; Z95.0 Presence of cardiac pacemaker; Z86.718 Personal history of other venous thrombosis and embolism; Z79.01 Long term (current) use of anticoagulants

== ENCOUNTER 2024-01-23 14:01 | Emergency (ER) | payer MEDICARE ==
[~2024-01-23] VITALS: Ht 172.7 cm; Wt 90.0 kg
[2024-01-23 14:55] VITALS: BP 144/88
[2024-01-23 15:00] VITALS: BP 138/88
[2024-01-23] MEDS ORDERED: AMOXICILLIN & POT CLAVULANATE 500 MG/TAB PO ONE (15:20)
[2024-01-23] MEDS ORDERED: HYDROcodone 5 MG/Acetaminophen 325 MG/COMBO PO ONE (15:20)
[2024-01-23] MEDS ORDERED: LORTAB 5/3255 MG PO (15:28)
[2024-01-23] MEDS ORDERED: AMOX/K CLAV875 M1 PO (15:28)
[2024-01-23] MEDS ORDERED: PERIDEX0.12 % MT (15:28)
[2024-01-23 15:30] VITALS: BP 131/95
== END 2024-01-23 15:53 | disposition home or self-care (01) ==
LOC: ED 14:01
DX: K02.9 Dental caries, unspecified (principal); K04.7 Periapical abscess without sinus; I50.9 Heart failure, unspecified; I25.10 Atherosclerotic heart disease of native coronary artery without angina pectoris; Q60.0 Renal agenesis, unilateral; Z86.718 Personal history of other venous thrombosis and embolism; Z21 Asymptomatic human immunodeficiency virus [HIV] infection status; Z72.0 Tobacco use

== ENCOUNTER 2024-01-28 10:17 | Observation (INO) | payer MEDICARE ==
[2024-01-28] VITALS (20 sets, daily range): BP systolic 97–146; BP diastolic 61–92
[~2024-01-28] VITALS: Ht 172.7 cm; Wt 90.7 kg
[~2024-01-28 10:17] MED LIST changes: +AMOX/K CLAV875 M1 PO; +PERIDEX0.12 % MT
--- NOTE | 2024-01-28 10:20 | NUR ---
PT TO ROOM WITH SLOW GAIT
[2024-01-28] MEDS ORDERED: ISOVUE-300 (Iopamidol) 100 ML SDV IV ONE (11:05)
[2024-01-28 11:06] LABS: BASO% 0.5 % (0-3); EOS% 1.8 % (0-8); IMMATURE GRANULOCYTES 0.2 % (0.0-5.0); LYMPH% 51.7 % (15-41); MEAN CELL VOLUME 104.6 fL CALC (80.0-100.0); MEAN CORPUSCULAR HGB 33.5 pG CALC (26.0-32.0); MONO% 13.5 % (2-13); NEUT# 2.64 thou/uL (1.82-7.42); NEUT% 32.3 % (42-76); RED BLOOD COUNT 3.67 mill/uL (4.70-6.10); RED CELL DISTRI WIDTH 21.1 % (11.5-15.5)
[2024-01-28 11:07] LABS: HEMATOCRIT 38.4 % (39.0-50.0); HEMOGLOBIN 12.3 g/dl (14.0-18.0)
[2024-01-28 11:24] LABS: POTASSIUM 3.6 mmol/l (3.5-5.1)
[2024-01-28 11:25] LABS: ALBUMIN 4.6 g/dL (3.2-5.0); BILIRUBIN, TOTAL 0.6 mg/dL (0.2-1.3); CREATININE 3.1 mg/dL (0.7-1.3); TOTAL PROTEIN 8.1 g/dL (6.3-8.2)
[2024-01-28 11:43] LABS: URINE BILIRUBIN - DIPSTICK Negative (NEGATIVE); URINE BLOOD DIPSTICK Trace-intact (NEGATIVE); URINE GLUCOSE - DIPSTICK Negative (NEGATIVE); URINE KETONE Trace mg/dL (NEGATIVE); URINE LEUK ESTERASE Trace (NEGATIVE); URINE NITRITE - DIPSTICK Negative (Negative); URINE PH 5.5 (4.5-8.0); URINE PROTEIN - DIPSTICK 30 mg/dL (NEG-TRACE); URINE UROBILINOGEN - DIPSTICK 0.2 E.U./dL (0.2)
[2024-01-28 11:52] LABS: URINE COLOR Yellow
[2024-01-28 11:57] LABS: URINE EPITHELIAL CELLS FEW EPI/hpf (0-FEW); URINE HYALINE CAST MANY lpf (NONE-RARE); URINE RBC 0-2 RBC/hpf (0-5); URINE WBC 0-2 WBC/hpf (0-5)
--- NOTE | 2024-01-28 12:18 | NUR ---
PT RESTING WATCHING TV, NO NEEDS AT THIS TIME.
[2024-01-28] MEDS ORDERED: SODIUM CHLORIDE 0.9% 1,000 ML IV ONE (12:25)
[2024-01-28] MEDS ORDERED: MORPHINE SULFATE 4 MG/ML VIAL IV ONE (13:10)
[2024-01-28] MEDS ORDERED: TENORMIN50 MG PO (13:29)
[2024-01-28] MEDS ORDERED: XANAX0.5 MG PO (13:29)
[2024-01-28] MEDS ORDERED: ACETAMINOPHEN 325 MG/TAB PO PRN (13:40)
[2024-01-28] MEDS ORDERED: SODIUM CHLORIDE 0.9% 1,000 ML IV PRN (13:40)
[2024-01-28] MEDS ORDERED: ONDANSETRON HCl 4 MG/2 ML SDV IV PRN (13:50)
[2024-01-28] MEDS ORDERED: PREGABALIN 100 MG/CAP PO SCH (15:00)
[2024-01-28] MEDS ORDERED: ALLOPURINOL 100 MG/TAB PO SCH (15:30)
[2024-01-28] MEDS ORDERED: DULOXETINE HCl 30 MG/CAP PO SCH (15:30)
[2024-01-28] MEDS ORDERED: RIVAROXABAN 20 MG TAB PO SCH (15:30)
[2024-01-28] MEDS ORDERED: Pantoprazole Sodium 40 MG VIAL (Protonix) IV SCH (15:30)
[2024-01-28] MEDS ORDERED: ATENOLOL 50 MG/TAB PO SCH (15:30)
--- NOTE | 2024-01-28 15:48 | NUR ---
PT REPORT TO DINAH REID. PT TRANSPORTED VIA WC TO ROOM 274. VSS. TRANSFERED CARE OF PT.
--- NOTE | 2024-01-28 16:24 | NUR ---
PT PROVIDED WITH WARM BLANKETS.
--- NOTE | 2024-01-28 16:27 | NUR ---
REPORT RECEIVED FROM IVAN IN ED, PT ARRIVED ON UNIT @ 1620 TRANSPORTED VIA W/C AND AMBULATED TO BED. ALERT AND ORIENTED X 4, REPORTS RIGHT JAW PAIN, LOWER ABD PAIN AND RIGHT ARM PAIN @ 10/01. # [address] TO RAC, # [address] ORIENTED TO ROOM AND CALL AVILA.
[2024-01-28] MEDS ORDERED: MORPHINE SULFATE 4 MG/ML VIAL IV SCH (17:30)
--- NOTE | 2024-01-28 19:10 | NUR ---
RECEIVED PT IN BED AAOX4 AND KIDD WITHOUT ANY DIFFICULTY. PT HAS NS INFUSING AT 100 ML/HR. PT STATES ABD PAIN AT THIS TIME. PT STAES PAIN IS A 5/10 ON PAIN SCALE. PT DENIES ANY NEED FOR MEDICATION. PT ENCOURAGED TO PROVIDE STOOL SAMPLE.
[2024-01-28] MEDS ORDERED: oxyCODONE HCL 5 MG/TAB PO PRN (19:55)
[2024-01-28] MEDS ORDERED: QUEtiapine FUMERATE 25 MG/TAB PO SCH (21:00)
[2024-01-28] MEDS ORDERED: MONTELUKAST SODIUM 10 MG/TAB PO SCH (21:00)
[2024-01-28] MEDS ORDERED: Zaleplon 5 MG/CAP PO PRN (21:00)
--- NOTE | 2024-01-28 23:19 | NUR ---
PT C/O DIFFICULTY SLEEPING AT THIS TIME. SONATA 10 MG PO GIVEN AT THIS TI. TV TURNED OFF ALONG WITH ALL LIGHTS. CONTINUE TO MONITOR PT FOR ANY CHANGES.
[2024-01-29] VITALS (9 sets, daily range): BP systolic 81–121; BP diastolic 43–58
--- NOTE | 2024-01-29 03:15 | NUR ---
PT STABLE AT THIS TIME. NO ACUTE DISTRESS NOTED.PT ASLEEP AND EASILY AROUSABLE.
[2024-01-29 05:26] LABS: BASO% 0.6 % (0-3); EOS% 1.5 % (0-8); IMMATURE GRANULOCYTES 0.1 % (0.0-5.0); MEAN CELL VOLUME 106.1 fL CALC (80.0-100.0); MEAN CORPUSCULAR HGB 34.1 pG CALC (26.0-32.0); MEAN CORPUSCULAR HGB CONC 32.2 g/dL CAL (32.0-36.0); MONO% 12.6 % (2-13); NEUT# 2.67 thou/uL (1.82-7.42); NEUT% 39.2 % (42-76); RED BLOOD COUNT 2.96 mill/uL (4.70-6.10); RED CELL DISTRI WIDTH 21.4 % (11.5-15.5)
[2024-01-29 05:39] LABS: BILIRUBIN, TOTAL 0.8 mg/dL (0.2-1.3); POTASSIUM 3.6 mmol/l (3.5-5.1)
[2024-01-29 05:49] LABS: HEMATOCRIT 31.4 % (39.0-50.0); HEMOGLOBIN 10.1 g/dl (14.0-18.0)
[2024-01-29 05:58] LABS: ALBUMIN 3.2 g/dL (3.2-5.0); CREATININE 1.8 mg/dL (0.7-1.3); MAGNESIUM 1.7 mg/dL (1.6-2.3); TOTAL PROTEIN 6.1 g/dL (6.3-8.2)
[2024-01-29] MEDS ORDERED: LEVOTHYROXINE SODIUM 88 MCG TAB PO SCH (06:00)
--- NOTE | 2024-01-29 06:05 | NUR ---
NO CHANGE IN STATUS FROM PREVIOUS ASSESSMENT. PT ASLEEP AND EASILY AROUSABLE. NS CONTINUE TO INFUSE WITHOUT ANY DIFFICULTY.
--- NOTE | 2024-01-29 07:00 | NUR ---
PATIENT LAYING IN BED. PATIENT A&OX4 AND ABLE TO MAKE NEEDS KNOWN. PATIENT DENIES ANY NEEDS AT THIS TIME.
[2024-01-29] MEDS ORDERED: ALPRAZolam 0.5 MG/TAB PO SCH (09:00)
--- NOTE | 2024-01-29 11:25 | NUR ---
PATIENT SEEN BY [facility].
--- NOTE | 2024-01-29 12:00 | NUR ---
PATIEN SITTING UP IN BED, HAVING LUNCH. PATIENT DENIES ANY NEEDS AT THIS TIME.
--- NOTE | 2024-01-29 15:54 | NUR ---
PATIENT LAYING IN BED. PATIENT DENIES ANY NEEDS AT THIS TIME.
--- NOTE | 2024-01-29 19:30 | NUR ---
PATIENT RECEIVED STABLE WITH NO COMPLAINTS IN NURSE TO NURSE REPORT. PATIENT REMAINS FREE OF SIGNS OF DISTRESS WITH CALL LIGHT IN REACH AND FALL PRECAUTIONS IN PLACE.
--- NOTE | 2024-01-30 | NUR ---
PATIENT REMAINS STABLE WITH NO SIGNS OF DISTRESS AND CALL LIGHT WITHIN REACH
[2024-01-30 04:35] VITALS: BP 100/61
[2024-01-30 04:54] VITALS: BP 100/61
[2024-01-30 07:17] VITALS: BP 128/86
--- NOTE | 2024-01-30 07:25 | NUR ---
REPORT RECEIVED FROM BREE. PT SEEN RESTING IN BED SITTING UP WITHOUT COMPLAINTS. IV SALINE LOCK. PT INDICATED NO BM FOR 3 DAYS. AWAITING STOOL CULTURE. WILL MONITOR. CALL LIGHT IN REACH.
[2024-01-30] MEDS ORDERED: INFLUENZA VIRUS VACCINE FLUZONE HD 2024/25 0.5 ML INJ IM SCH (09:00)
--- NOTE | 2024-01-30 10:44 | NUR ---
PT RESTING IN BED SITTING UP CHANGING POSITIONS ON OWN. NO COMPLAINTS TO REPORT. WILL MONITOR.
--- NOTE | 2024-01-30 14:30 | NUR ---
PT CONTINUES TO SIT UP IN BED CHANGING POSITIONS HIMSELF IN BED. C/O GENERLAIZED PAIN AND MEDICATED. WILL MONITOR. NO CHANGES TO REPORT.
[2024-01-30 15:54] VITALS: BP 92/54
--- NOTE | 2024-01-30 18:12 | NUR ---
PT RESTED ON AND OFF TGHROUGHOUT SHIFT. PAIN MANAGED WITH OXYCODONE AND LYRICA. IVF CONTINUE. PT FRANCISCO FOOD AND FLUIDS WELL AND VOIDING VIA URINAL. NO CHANGES TO REPORT.
--- NOTE | 2024-01-30 19:15 | NUR ---
RECEIVED PT IN BED WATCHING TV. PT DENIES ANY BACK PAIN OR ABD PAIN AT THIS TIME. NO C/O NAUSEA OR VOMITING ON ASSESSMENT. NS INFUSING @ 100 ML/HR WITHOUT ANY DIFFICULTY. COMFORT MEASURES PROVIDED.
[2024-01-30 19:16] VITALS: BP 127/73
--- NOTE | 2024-01-30 20:54 | NUR ---
PT C/O LOWER ABD PAIN AT THIS TIME. PT DENIES ANY N/V ON ASSESSMENT. PT MEDICATED AT THIS TIME. SEE PT EMAR. WILL CONTINUE TO MONITOR PT FOR PAIN.
--- NOTE | 2024-01-30 21:30 | NUR ---
PT STATES ABD PAIN HAS RESOLVED. DRNIRD ANY N/V ON ASSESSMENT. NS CONTINUE TO INFUSE WITHOUT ANY DIFFICULTY. PT INSTRUCTED TO NOTIFY NURSE IF ANY INCREASE IN PAIN OR DISCOMFORT. PT VERBALIZED UNDERSTANDING.
--- NOTE | 2024-01-30 23:28 | NUR ---
PT C/O OF DIFFICULT SLEEPING AT THIS TIME. PT GIVEN SONATA 10MG PO AT THIS TIME. LIGHTS AND TV TURNED OFF. COMFORT MEASURES MAINTAINED.
--- NOTE | 2024-01-31 01:43 | NUR ---
PT ASLEEP AND EASILY AROUSABLE. NO ACUTE DISTRESS NOTED ON ASSESSMENT. IVF'S CONTINUE TO INFUSE WITHOUT ANY DIFFICULTY. CONTINUE TO MONITOR PT FOR ANY CHANGES.
[2024-01-31 03:52] VITALS: BP 101/61
[2024-01-31 05:43] LABS: BASO% 0.7 % (0-3); EOS% 3.5 % (0-8); HEMATOCRIT 31.6 % (39.0-50.0); HEMOGLOBIN 9.7 g/dl (14.0-18.0); IMMATURE GRANULOCYTES 0.2 % (0.0-5.0); LYMPH% 51.1 % (15-41); MEAN CELL VOLUME 110.1 fL CALC (80.0-100.0); MEAN CORPUSCULAR HGB 33.8 pG CALC (26.0-32.0); MEAN CORPUSCULAR HGB CONC 30.7 g/dL CAL (32.0-36.0); MONO% 13.3 % (2-13); NEUT# 1.76 thou/uL (1.82-7.42); NEUT% 31.2 % (42-76); RED BLOOD COUNT 2.87 mill/uL (4.70-6.10); RED CELL DISTRI WIDTH 21.8 % (11.5-15.5)
[2024-01-31 06:06] LABS: ALBUMIN 2.8 g/dL (3.2-5.0); CREATININE 1.3 mg/dL (0.7-1.3); MAGNESIUM 1.8 mg/dL (1.6-2.3); POTASSIUM 4.3 mmol/l (3.5-5.1); TOTAL PROTEIN 5.4 g/dL (6.3-8.2)
[2024-01-31 06:10] LABS: BILIRUBIN, TOTAL 0.4 mg/dL (0.2-1.3)
[2024-01-31 06:34] VITALS: BP 126/81
[2024-01-31 07:05] VITALS: BP 126/81
--- NOTE | 2024-01-31 07:33 | NUR ---
REPORT RECEIVED FROM TOMMY. PT RESTING TO LEFT SIDE CHANGING POSITIONS BY SELF. DENIES PAIN THIS AM. IV PATENT AND NO COMPLAINTS. WILL MONITOR.
[2024-01-31 09:11] VITALS: BP 126/81
--- NOTE | 2024-01-31 10:55 | NUR ---
DISCHARGE ORDER RECEIVED AND EXPLAINED TO PT. INSTRUCTED PT TO CALL DR. CAANLES OFFICE TODAY TO BE SEEN IN OFFICE REGARDING MEDICATIONS. PT VERBALIZED UNDERSTANDING AND LEFT HAND IV REMOVED WITH CATH TIP INTACT. PT FRANCISCO WELL. PT THEN D/C'D VIA W/C ACCOMPANIED BY STAFF.
--- NOTE | 2024-01-31 11:01 | NUR ---
Discharge instructions given. Patient verbalizes understanding of same. Discharged in stable condition via Wheelchair to Home with staff. All belongings sent with pt.
--- NOTE | 2024-02-03 11:22 | NUR ---
Discharge follow up call completed 02/03/24. Pt states he is doing somewhat better since discharge. Patient has a pain management appointment today and will call his PCP following thatat appt. to schedule a follow up appointment. No needs verbalized at this time. Patient is grateful for the call.
== END 2024-01-31 10:57 | disposition home or self-care (01) ==
LOC: ED 10:17 → ED-I 11:12 → ED 11:12 → MS2 12:53
PROVIDERS: Family Medicine; Internal Medicine; Nurse Practitioner Family; ADMIT Internal Medicine; ATTEND Internal Medicine
DX: N17.9 Acute kidney failure, unspecified (principal); R19.7 Diarrhea, unspecified; I13.0 Hypertensive heart and chronic kidney disease with heart failure and stage 1 through stage 4 chronic kidney disease, or unspecified chronic kidney disease; I50.9 Heart failure, unspecified; N18.9 Chronic kidney disease, unspecified; I25.10 Atherosclerotic heart disease of native coronary artery without angina pectoris; K21.9 Gastro-esophageal reflux disease without esophagitis; G62.9 Polyneuropathy, unspecified; F17.210 Nicotine dependence, cigarettes, uncomplicated; Z21 Asymptomatic human immunodeficiency virus [HIV] infection status; Z79.899 Other long term (current) drug therapy; Z86.718 Personal history of other venous thrombosis and embolism; G89.4 Chronic pain syndrome; Z79.01 Long term (current) use of anticoagulants; Z23 Encounter for immunization
CPT/HCPCS: 90662; J2470

== ENCOUNTER 2024-02-23 21:57 | Emergency (ER) | payer MEDICARE ==
[2024-02-23] VITALS (8 sets, daily range): BP systolic 78–108; BP diastolic 31–84
[~2024-02-23] VITALS: Ht 172.7 cm; Wt 91.0 kg
[~2024-02-23 21:57] MED LIST changes: +TENORMIN50 MG PO; +XANAX0.5 MG PO
[2024-02-23] MEDS ORDERED: DEXTROSE 10% 500 ML BAG IV ONE ×2 (22:50→23:30)
[2024-02-23 22:59] LABS: BASO% 0.1 % (0-3); HEMATOCRIT 30.4 % (39.0-50.0); IMMATURE GRANULOCYTES 1.1 % (0.0-5.0); LYMPH% 22.9 % (15-41); MEAN CORPUSCULAR HGB 32.4 pG CALC (26.0-32.0); MEAN CORPUSCULAR HGB CONC 32.9 g/dL CAL (32.0-36.0); MONO% 7.4 % (2-13); NEUT# 9.49 thou/uL (1.82-7.42); NEUT% 68.5 % (42-76); RED BLOOD COUNT 3.09 mill/uL (4.70-6.10); RED CELL DISTRI WIDTH 18.4 % (11.5-15.5)
[2024-02-23 23:02] LABS: MEAN CELL VOLUME 98.4 fL CALC (80.0-100.0)
[2024-02-23 23:24] LABS: ALBUMIN 4.3 g/dL (3.2-5.0); BILIRUBIN, TOTAL 1.7 mg/dL (0.2-1.3); CREATININE 12.7 mg/dL (0.7-1.3); POTASSIUM 6.3 mmol/l (3.5-5.1)
[2024-02-23] MEDS ORDERED: CALCIUM GLUCONATE 1 GM in SODIUM CHLORIDE 0.9% 50 ML IV ONE (23:30)
[2024-02-23] MEDS ORDERED: SODIUM POLYSTYRENE SULFONATE 15 G/BTL POWDER PO ONE (23:30)
[2024-02-23] MEDS ORDERED: INSULIN REGULAR (HUMAN) 100 UNIT/ML INJ IV ONE (23:30)
[2024-02-23] MEDS ORDERED: SODIUM CHLORIDE 0.9% 1,000 ML IV ONE (23:30)
[2024-02-23] MEDS ORDERED: PIPERACILLIN Sodium-Tazobactam 3.375 GM in SODIUM CHLORIDE 0.9% 100 ML IV ONE (23:50)
[2024-02-23 23:53] LABS: URINE BLOOD DIPSTICK Moderate (NEGATIVE); URINE GLUCOSE - DIPSTICK Negative (NEGATIVE); URINE KETONE Trace mg/dL (NEGATIVE); URINE LEUK ESTERASE Negative (NEGATIVE); URINE NITRITE - DIPSTICK Negative (Negative); URINE PROTEIN - DIPSTICK >=300 mg/dL (NEG-TRACE); URINE SPECIFIC GRAVITY 1.025; URINE UROBILINOGEN - DIPSTICK 0.2 E.U./dL (0.2)
[2024-02-23] MEDS ORDERED: DEXTROSE 250 ML IV ONE ×2 (23:55)
[2024-02-24] LABS: URINE COLOR Yellow
[2024-02-24 00:07] LABS: URINE EPITHELIAL CELLS FEW EPI/hpf (0-FEW)
[2024-02-24 00:08] LABS: URINE BACTERIA MODERATE hpf; URINE YEAST MODERATE hpf
[2024-02-24 00:23] VITALS: BP 132/82
[2024-02-24 00:30] VITALS: BP 101/79
[2024-02-24] MEDS ORDERED: MORPHINE SULFATE 4 MG/ML VIAL IV ONE (00:50)
[2024-02-24] MEDS ORDERED: SODIUM CHLORIDE 0.9% 1,000 ML IV ONE (00:50)
[2024-02-24 01:00] VITALS: BP 114/77
[2024-02-24 01:16] VITALS: BP 108/87
[2024-02-24 01:33] LABS: C-REACTIVE PROTEIN 8.2 mg/dL (0-0.9)
[2024-02-24 01:36] VITALS: BP 105/53
[2024-02-24 01:38] LABS: POTASSIUM 5.4 mmol/l (3.5-5.1)
[2024-02-24 01:39] LABS: CREATININE 12.2 mg/dL (0.7-1.3)
[2024-02-24 01:50] VITALS: BP 105/53
== END 2024-02-24 02:00 | disposition short-term general hospital (02) ==
LOC: ED 21:57
PROVIDERS: Family Medicine
DX: N19 Unspecified kidney failure (principal); E86.0 Dehydration; E87.5 Hyperkalemia; E11.40 Type 2 diabetes mellitus with diabetic neuropathy, unspecified; I50.9 Heart failure, unspecified; J44.9 Chronic obstructive pulmonary disease, unspecified; F41.9 Anxiety disorder, unspecified; Z86.73 Personal history of transient ischemic attack (TIA), and cerebral infarction without residual deficits; Z91.81 History of falling; Z21 Asymptomatic human immunodeficiency virus [HIV] infection status; Z20.822 Contact with and (suspected) exposure to COVID-19
CPT/HCPCS: J0612; J1836; J2543